=== PATIENT | female | born 1985 | race Caucasian/White ===

== ENCOUNTER 2024-10-03 16:57 | Observation (INO) ==
--- NOTE | 2024-10-03 17:41 | Emergency Department Note ---
History of Present Illness General Chief Complaint: Cardiac Assessment Stated Complaint: PALPITATIONS, HEADACHE, DIZZINESS, SHAKINESS Time Seen by Provider: 10/03/24 17:12 History of Present Illness Provider Complaint: + palpitations Onset (ago): month(s) (1) Duration: + Constant Severity: similar to previous episodes Maximum Pain Intensity: 8 Context: + occurred during rest Arrhythmia history: no atrial fibrillation, no on anti-coagulants, no pacemaker or no history of ablation Associated symptoms: + chest pain; no shortness of breath, no syncope, no near- syncope, no nausea, no vomiting or no cough Home Medications Medication Instructions Recorded Confirmed Type ascorbic acid (vitamin C) 1,000 mg 1,000 mg PO QAM 10/03/24 10/03/24 History tablet (Vitamin C) elderberry fruit 350 mg capsule 350 mg PO QAM 10/03/24 10/03/24 History Allergies Allergy/AdvReac Type Severity Reaction Status Date / Time acetaminophen Allergy Unknown RASH Verified 10/03/24 21:19 citalopram Allergy Unknown INSOMNIA Verified 10/03/24 21:19 hydrocodone Allergy Unknown RASH Verified 10/03/24 21:19 meloxicam Allergy Unknown LIP Verified 10/03/24 21:19 NUMBNESS Past Med/Surg History Problem List (Updated 10/03/24 @ 22:20 by Casey Vernon MD) Chest pain (Acute) Anxiety Chest pressure Medical History (Updated 10/03/24 @ 22:20 by Casey Vernon MD) No pertinent past medical history No pertinent family history Surgical History (Updated 10/03/24 @ 17:43 by Casey Vernon MD) No pertinent past surgical history Social History Smoking Status: Never smoker Preferred Language: Indonesian Feels Safe at Home: Yes Physical Exam 2 Vital Signs: Vital Signs - 24 hr 10/03/24 17:01 10/03/24 17:18 10/03/24 17:18 Temperature 37.1 C Temperature Source Temporal Artery Sc an Pulse Rate 129 H 106 H Pulse Rate [Apical ] 105 H Pulse Rhythm Pulse Rhythm [Apic al] Regular Pulse Strength [Ap ical] Normal Respiratory Rate 18 20 Respiratory Effort / Characteristics Non-Labored Sponta neous Respiratory Depth Normal Respiratory Patter n Regular Blood Pressure 139/90 Blood Pressure [Le ft Arm] 128/97 Blood Pressure Verito n 106 Blood Pressure Verito n [Left Arm] 107 Blood Pressure Pos ition [Left Arm] Pulse Oximetry 98 98 Oxygen Delivery Me thod Room Air Room Air Sepsis New/Unexpla ined Change in Men claudine Status No Sepsis Action Take n by Nursing No Action Required 10/03/24 17:18 10/03/24 17:30 10/03/24 17:36 Temperature Temperature Source Pulse Rate 104 H 92 H Pulse Rate [Apical ] Pulse Rhythm Regular Pulse Rhythm [Apic al] Pulse Strength [Ap ical] Respiratory Rate 20 20 Respiratory Effort / Characteristics Respiratory Depth Respiratory Patter n Blood Pressure 115/83 Blood Pressure [Le ft Arm] Blood Pressure Verito n 97 Blood Pressure Verito n [Left Arm] Blood Pressure Pos ition [Left Arm] Pulse Oximetry 99 99 Oxygen Delivery Me thod Room Air Room Air Sepsis New/Unexpla ined Change in Men claudine Status Sepsis Action Take n by Nursing 10/03/24 18:00 10/03/24 18:12 10/03/24 18:42 Temperature Temperature Source Pulse Rate 94 H 90 85 Pulse Rate [Apical ] Pulse Rhythm Pulse Rhythm [Apic al] Pulse Strength [Ap ical] Respiratory Rate 16 22 14 Respiratory Effort / Characteristics Respiratory Depth Respiratory Patter n Blood Pressure 121/67 Blood Pressure [Le ft Arm] Blood Pressure Verito n 85 Blood Pressure Verito n [Left Arm] Blood Pressure Pos ition [Left Arm] Pulse Oximetry 97 98 98 Oxygen Delivery Me thod Room Air Room Air Room Air Sepsis New/Unexpla ined Change in Men claudine Status Sepsis Action Take n by Nursing 10/03/24 19:21 10/03/24 19:24 10/03/24 19:27 Temperature Temperature Source Pulse Rate 96 H 102 H Pulse Rate [Apical ] Pulse Rhythm Pulse Rhythm [Apic al] Pulse Strength [Ap ical] Respiratory Rate 16 21 Respiratory Effort / Characteristics Respiratory Depth Respiratory Patter n Blood Pressure 113/72 Blood Pressure [Le ft Arm] Blood Pressure Verito n 83 Blood Pressure Verito n [Left Arm] Blood Pressure Pos ition [Left Arm] Pulse Oximetry 97 97 Oxygen Delivery Me thod Room Air Room Air Sepsis New/Unexpla ined Change in Men claudine Status Sepsis Action Take n by Nursing 10/03/24 19:33 10/03/24 19:42 10/03/24 19:51 Temperature Temperature Source Pulse Rate 107 H 103 H 97 H Pulse Rate [Apical ] Pulse Rhythm Pulse Rhythm [Apic al] Pulse Strength [Ap ical] Respiratory Rate 24 20 Respiratory Effort / Characteristics Respiratory Depth Respiratory Patter n Blood Pressure Blood Pressure [Le ft Arm] Blood Pressure Verito n Blood Pressure Verito n [Left Arm] Blood Pressure Pos ition [Left Arm] Pulse Oximetry 97 98 97 Oxygen Delivery Me thod Room Air Room Air Room Air Sepsis New/Unexpla ined Change in Men claudine Status Sepsis Action Take n by Nursing 10/03/24 20:00 10/03/24 20:00 10/03/24 20:29 Temperature Temperature Source Pulse Rate 99 H 98 H Pulse Rate [Apical ] 94 H Pulse Rhythm Pulse Rhythm [Apic al] Pulse Strength [Ap ical] Respiratory Rate 18 18 Respiratory Effort / Characteristics Non-Labored Sponta neous Respiratory Depth Normal Respiratory Patter n Regular Blood Pressure Blood Pressure [Le ft Arm] 118/81 Blood Pressure Verito n Blood Pressure Verito n [Left Arm] 93 Blood Pressure Pos ition [Left Arm] Pulse Oximetry 97 98 Oxygen Delivery Me thod Room Air Room Air Sepsis New/Unexpla ined Change in Men claudine Status Sepsis Action Take n by Nursing 10/03/24 21:14 10/03/24 21:21 Temperature Temperature Source Pulse Rate Pulse Rate [Apical ] 93 H 90 Pulse Rhythm Pulse Rhythm [Apic al] Pulse Strength [Ap ical] Respiratory Rate 22 16 Respiratory Effort / Characteristics Non-Labored Sponta neous Non-Labored Sponta neous Respiratory Depth Normal Normal Respiratory Patter n Regular Regular Blood Pressure Blood Pressure [Le ft Arm] 121/76 109/67 Blood Pressure Verito n Blood Pressure Verito n [Left Arm] 91 81 Blood Pressure Pos ition [Left Arm] Semi-fowlers Pulse Oximetry 97 95 Oxygen Delivery Me thod Room Air Room Air Sepsis New/Unexpla ined Change in Men claudine Status Sepsis Action Take n by Nursing Physical Exam: Physical Exam GENERAL: oriented to person, place, and time. appears well-developed and well- nourished. HENT: Exam performed. - Head: Normocephalic and atraumatic. EYES: Conjunctivae and EOM are normal. Right eye exhibits no discharge. Left eye exhibits no discharge. No scleral icterus. NECK: Normal range of motion. Neck supple. No JVD present. CV: Tachycardic rate, regular rhythm, normal heart sounds and intact distal pulses. There is no peripheral edema. Palpable radial pulses bue. PULM/CHEST: Effort normal and breath sounds normal. No respiratory distress. No stridor. no wheezes. no rales. ABD: The abdomen is soft. There is no tenderness. NEURO: Motor and sensation grossly intact. SKIN: Skin is warm and dry. He is not diaphoretic. PSYCH: normal mood and affect. Behavior is normal. Judgment and thought content normal. Course Course 171: The patient was evaluated in room B2. A complete history and physical exam was performed Cardiac monitoring: An order was placed for continuous cardiac monitoring. The monitor shows a rate of 100 with sinus rhythm interpreted by me 1915: Vital signs stable. Labs and imaging are unremarkable. Patient was told she could follow-up for regular scheduled appointment with cardiology next week or be admitted to the hospital for observation given her ongoing chest pain. Patient states she prefers to be admitted to the hospital. [facility] hospitalist team will be contacted. Administered Medications Potassium Chloride/Sodium Chloride (Normal Saline W/20 Meq Kcl) 20 meq in 1,000 mls @ 100 mls/hr IV .Q10H ONE Stop: 10/04/24 05:56 Last Admin: 10/03/24 20:32 Dose: 100 mls/hr Documented By: FOUZIA Discontinued Medications Ioversol (Optiray 320 125ml) 118 ml IV ONCE ONE Stop: 10/03/24 21:46 Last Admin: 10/03/24 21:45 Dose: 118 ml Documented By: SHEELA Metoprolol Tartrate (Metoprolol Tartrate 25 Mg Tab) 12.5 mg PO NOW STA Stop: 10/03/24 19:56 Last Admin: 10/03/24 20:32 Dose: 12.5 mg Documented By: FOUZIA Nitroglycerin (Nitroglycerin Sl 0.4 Mg/Tab Tab) 0.4 mg SL NOW STA Stop: 10/03/24 21:05 Last Admin: 10/03/24 21:15 Dose: 0.4 mg Documented By: FOUZIA Oxycodone HCl (Oxycodone Hcl Ir 5 Mg Tab (Immediate Release)) 5 mg PO NOW STA Stop: 10/03/24 21:23 Last Admin: 10/03/24 22:07 Dose: 5 mg Documented By: FOUZIA Potassium Chloride (Potassium Chloride Crtab 20 Meq Tabcr) 40 meq PO NOW STA Stop: 10/03/24 19:57 Last Admin: 10/03/24 20:30 Dose: 40 meq Documented By: [facility] Medical Decision Making Laboratory Data Attestation: I reviewed the patient's lab results. 10/03/24 17:28 10/03/24 17:28 Lab Results 10/03/24 10/03/24 10/03/24 Range/Units 17:28 17:38 19:33 WBC 8.28 (4.8-10.8) K/ul RBC 4.61 (4.20-5.40) M/uL Hgb 13.4 (12.0-16.0) g/dl Hct 40.2 (37.0-47.0) % MCV 87.2 (80.0-100.0) fL MCH 29.1 (25.0-34.0) pg MCHC 33.3 (32.0-36.0) g/dL RDW Std Deviation 41.0 (36.4-46.3) fL RDW Coeff of Melanie 13.1 (11.5-14.5) % Plt Count 235 (130-400) K/uL MPV 11.0 (9.4-12.4) fL Immature Gran % (Auto) 0.2 % Neut % (Auto) 60.7 % Lymph % (Auto) 29.1 % [place] % (Auto) 8.3 % Eos % (Auto) 1.3 % Baso % (Auto) 0.4 % Neut # (Auto) 5.02 (1.40-6.50) K/uL Lymph # (Auto) 2.41 (1.20-3.40) K/uL [place] # (Auto) 0.69 H (0.11-0.59) K/uL Eos # (Auto) 0.11 (0.00-0.50) K/uL Baso # (Auto) 0.03 (0.00-0.20) K/uL Immature Gran # (Auto) 0.02 (0.01-0.20) K/uL ESR 23 H (0-20) mm/hr PT 9.9 (9.0-12.0) Seconds INR 0.9 (0.9-1.1) APTT 24 (21-31) Seconds PTT Ratio 0.9 D-Dimer 320 (0-500) ug/L FEU Sodium 139 (136-145) mmol/L Potassium 3.7 (3.5-5.1) mmol/L Chloride 107 (98-107) mmol/L Carbon Dioxide 26 (21-32) mmol/L Anion Gap 6 (3-11) BUN 17 (6-23) mg/dl Creatinine 0.75 (0.6-1.2) mg/dl Est Cr Clr Drug Dosing 105.2 ml/min eGFR 103.79 BUN/Creatinine Ratio 22.7 H (10-20) Glucose 93 (70-99(Fasting)) mg/dl Calcium 9.1 (8.6-10.3) mg/dl Magnesium 2.1 (1.7-2.4) mg/dl Total Bilirubin 0.4 (0.2-1.0) mg/dl Direct Bilirubin 0.1 (0-0.2) mg/dl AST 15 (13-39) U/L ALT 18 (7-52) U/L Alkaline Phosphatase 54 (34-104) U/L Troponin I High Sens < 2.3 2.5 (0-14) pg/ml Total Protein 6.8 (6.0-8.3) gm/dl Albumin 4.3 (3.4-5.0) gm/dl Lipase 25 (11-82) U/L Lyme Disease Screen Negative (Negative) Imaging Data Attestation: I personally reviewed and interpreted this imaging study as follows: My Impression: Chest x-ray negative. Airway clear. No pneumothorax. No consolidation. No cardiomegaly or cephalization.. No free air under the diaphragm. No fractures of the skeletal structures. Radiologist's Impression: Chest X-Ray 10/03/24 17:13 EXAM: XR chest 1V portable CLINICAL HISTORY: Chest pain, nonspecific TECHNIQUE: An X-ray image of the chest is obtained in AP projection. COMPARISON: No prior studies are available for comparison. FINDINGS: Pulmonary Parenchyma: Lungs are clear bilaterally. No evidence of consolidation, collapse, or focal opacities. No pulmonary nodules are identified. No evidence of pleural effusion or pleural thickening. Heart and Mediastinum: Heart size and shape are normal. No mediastinal widening or masses. No hilar or mediastinal lymphadenopathy. Bony Thorax: Bony thorax appears intact without fractures or deformities. Small calcific foci area seen in the vicinity f the left supraspinatus tendon, likely calcific tendinitis. Soft Tissues: Soft tissues overlying the chest wall are unremarkable. IMPRESSION: No acute cardiopulmonary abnormalities are identified. Electronically signed by Cuco Long 10-03-2024 7:14 PM ECG Data Attestation: I personally reviewed and interpreted this ECG as follows: Rate (beats per minute): 108 Rhythm: sinus tachycardia Findings: no ST depression, no ST elevation or no prolonged QT [facility] Narrative 1712: The patient was evaluated in room B2. A complete history and physical exam was performed Cardiac monitoring: An order was placed for continuous cardiac monitoring. The monitor shows a rate of 100 with sinus rhythm interpreted by me 1915: Vital signs stable. Labs and imaging are unremarkable. Patient was told she could follow-up for regular scheduled appointment with cardiology next week or be admitted to the hospital for observation given her ongoing chest pain. Patient states she prefers to be admitted to the hospital. [facility] hospitalist team will be contacted. Impression & Plan Chest pain Discharge Plan Visit Data Chief Complaint: Cardiac Assessment Stated Complaint: PALPITATIONS, HEADACHE, DIZZINESS, SHAKINESS ED Provider: Casey Vernon Discharge Problem: Chest pain Patient Disposition: Being Evaluated by Hospitalist Forms Stand Alone Forms: My [facility] Prescriptions Prescriptions: No Action ascorbic acid (vitamin C) [Vitamin C] 1,000 mg Tablet 1,000 mg PO QAM elderberry fruit 350 mg Capsule 350 mg PO QAM Referrals Referrals: PCP,NO [Physician] - Discharge Problem: Chest pain Qualifiers: Chest pain type: unspecified Qualified Code(s): R07.9 - Chest pain, unspecified
[2024-10-03 17:45] LABS: Basophils # (auto) 0.03 K/uL (0.00-0.20); Basophils % (auto) 0.4 %; Eosinophils # (auto) 0.11 K/uL (0.00-0.50); Eosinophils % (auto) 1.3 %; Hematocrit (blood only) 40.2 % (37.0-47.0); Hemoglobin 13.4 g/dl (12.0-16.0); Immature Granulocytes # (auto) 0.02 K/uL (0.01-0.20); Immature Granulocytes % (auto) 0.2 %; Lymphocytes # (auto) 2.41 K/uL (1.20-3.40); Lymphocytes % (auto) 29.1 %; Mean Corpuscular Hemoglobin 29.1 pg (25.0-34.0); Mean Corpuscular Hgb Conc 33.3 g/dL (32.0-36.0); Mean Corpuscular Volume 87.2 fL (80.0-100.0); Monocytes # (auto) 0.69 K/uL (0.11-0.59); Monocytes % (auto) 8.3 %; Neutrophils # (auto) 5.02 K/uL (1.40-6.50); Neutrophils % (auto) 60.7 %; Platelet Count 235 K/uL (130-400); RDW Coefficient of Variation 13.1 % (11.5-14.5); Red Blood Count 4.61 M/uL (4.20-5.40); White Blood Count 8.28 K/ul (4.8-10.8)
[2024-10-03 18:03] LABS: Anion Gap 6 (3-11); BUN Creatinine Ratio 22.7 (10-20); Blood Urea Nitrogen 17 mg/dl (6-23); Calcium 9.1 mg/dl (8.6-10.3); Carbon Dioxide 26 mmol/L (21-32); Chloride 107 mmol/L (98-107); Creatinine Clr Calc Pharmacy 105.2 ml/min; Glucose 93 mg/dl (70-99(Fasting)); Lipase 25 U/L (11-82); Magnesium 2.1 mg/dl (1.7-2.4); Potassium 3.7 mmol/L (3.5-5.1); Sodium 139 mmol/L (136-145)
[2024-10-03 18:10] LABS: Troponin I High Sensitivity < 2.3 pg/ml (0-14)
[2024-10-03 18:28] LABS: D Dimer 320 ug/L FEU (0-500); INR 0.9 (0.9-1.1); Partial Thromboplastin Ratio 0.9; Partial Thromboplastin Time 24 Seconds (21-31); Prothrombin Time 9.9 Seconds (9.0-12.0)
--- NOTE | 2024-10-03 19:15 | XRay Report ---
EXAM: XR chest 1V portable CLINICAL HISTORY: Chest pain, nonspecific TECHNIQUE: An X-ray image of the chest is obtained in AP projection. COMPARISON: No prior studies are available for comparison. FINDINGS: Pulmonary Parenchyma: Lungs are clear bilaterally. No evidence of consolidation, collapse, or focal opacities. No pulmonary nodules are identified. No evidence of pleural effusion or pleural thickening. Heart and Mediastinum: Heart size and shape are normal. No mediastinal widening or masses. No hilar or mediastinal lymphadenopathy. Bony Thorax: Bony thorax appears intact without fractures or deformities. Small calcific foci area seen in the vicinity f the left supraspinatus tendon, likely calcific tendinitis. Soft Tissues: Soft tissues overlying the chest wall are unremarkable. IMPRESSION: No acute cardiopulmonary abnormalities are identified. Electronically signed by Cuco Long 10-03-2024 7:14 PM
--- NOTE | 2024-10-03 20:00 | History & Physical Report ---
Date of Service October 03, 2024 Assessment & Plan (1) Chest pressure: (2) Anxiety: Plan Please refer to Dr. Crane's note for further plan of care. History of Present Illness Chief Complaint: Chest pressure/shortness of breath Primary Care Provider: Mukul Wilkes PA-C The patient is a 38-year-old female with a past medical history of anxiety, recently taking Zepbound for weight loss which she stopped about a month and a half ago who presents to the ED on 09/29/2024 with complaints of worsening chest pressure and shortness of breath over the past month. Patient reports about 4 weeks ago developing midsternal chest pressure. The chest pain is not reproducible. She reports about 2 weeks ago getting blood work done again EKG done at the doctor's office which was normal. About 6 days after that, she still did not feel right, reported getting EKG done outpatient that showed PVCs. She had a Zio patch on for few days that was discontinued today 09/29/2024. She still did not receive the results. She has a follow-up appointment with cardiology in 1 week. Reports the shortness of breath is worsening and she is unable to have a full conversation or go up the steps without being short of breath. Denies any fever/chills. Denies any nausea/vomiting/diarrhea. Denies any abdominal pain. Denies any recent changes in her diet. Denies any recent travel. Denies any recent respiratory symptoms. On arrival to the ED, chest x-ray showed no acute changes On exam, patient had rare PVCs and was mildly tachycardic rates [id number] Labs are fairly unremarkable. Troponin negative. Lyme pending. The patient will be admitted for further workup for atypical chest pain. Allergies Allergy/AdvReac Type Severity Reaction Status Date / Time acetaminophen Allergy Unknown RASH Verified 10/03/24 21:19 citalopram Allergy Unknown INSOMNIA Verified 10/03/24 21:19 hydrocodone Allergy Unknown RASH Verified 10/03/24 21:19 meloxicam Allergy Unknown LIP Verified 10/03/24 21:19 NUMBNESS Home Medications Medication Instructions Recorded Confirmed Type ascorbic acid (vitamin C) 1,000 mg 1,000 mg PO QAM 10/03/24 10/03/24 History tablet (Vitamin C) elderberry fruit 350 mg capsule 350 mg PO QAM 10/03/24 10/03/24 History Past Med/Surg History Problem List (Updated 10/03/24 @ 22:20 by Casey Vernon MD) Chest pain (Acute) Anxiety Chest pressure Medical History (Updated 10/03/24 @ 22:20 by Casey Vernon MD) No pertinent past medical history No pertinent family history Surgical History (Updated 10/03/24 @ 17:43 by Casey Vernon MD) No pertinent past surgical history Social History Smoking Status: Never smoker Second Hand Exposure: No; Do You Dip or Chew Tobacco: No; Tobacco Cessation Education Requested by Patient: No Hx Alcohol Use: No Hx Substance Use: No Preferred Language: Japanese Communication Ability: Effective Helicopter Pilot Required: No Beliefs That Will Affect Care: None Current Living Situation: Significant Other Other Information That Helps Us Care for You: No Feels Safe at Home: Yes Safety Concerns: Feels Safe At This Time Assistive Devices: Contacts Review of Systems Review of Systems: All systems reviewed & are unremarkable except as noted in HPI & below Physical Exam Constitutional: WD/WN, vitals as above Eyes: PERRL, conjunctivae normal, anicteric sclerae ENMT: external ear and nose normal, oropharynx normal Neck: trachea midline, no thyromegaly Respiratory: normal respiratory effort, lungs clear to auscultation Cardiovascular: RRR, no murmur, no edema (Mildly tachycardic on exam) Gastrointestinal (Abdomen): normal bowel sounds, soft, nontender, no hepatosplenomegaly Musculoskeletal: no cyanosis or clubbing, extremities motor strength 5/5 Skin: no rashes, warm and dry Neurologic: PERRL, EOMI, accommodation nl, no face palsy, no dysarthria Psychiatric: A+Ox3, euthymic affect Lymphatic: no cervical or axillary lymphadenopathy Results & Data Results & Data Vital Signs (Past 12 Hours) Vital Signs Temp Pulse Pulse Resp BP BP Pulse Ox 10/03/24 18:42 85 14 98 10/03/24 18:12 90 22 98 10/03/24 18:00 94 H 16 121/67 97 10/03/24 17:36 92 H 20 99 10/03/24 17:30 115/83 10/03/24 17:18 104 H 20 99 10/03/24 17:18 105 H 20 128/97 98 10/03/24 17:18 106 H 10/03/24 17:01 37.1 C 129 H 18 139/90 98 O2 Del Method 10/03/24 18:42 Room Air 10/03/24 18:12 Room Air 10/03/24 18:00 Room Air 10/03/24 17:36 Room Air 10/03/24 17:30 10/03/24 17:18 Room Air 10/03/24 17:18 Room Air 10/03/24 17:18 10/03/24 17:01 Room Air Diagnostic Findings Laboratory Results WBC 8.28 K/ul (4.8-10.8) 10/03/24 17:28 RBC 4.61 M/uL (4.20-5.40) 10/03/24 17:28 Hgb 13.4 g/dl (12.0-16.0) 10/03/24 17:28 Hct 40.2 % (37.0-47.0) 10/03/24 17:28 MCV 87.2 fL (80.0-100.0) 10/03/24 17:28 MCH 29.1 pg (25.0-34.0) 10/03/24 17:28 MCHC 33.3 g/dL (32.0-36.0) 10/03/24 17:28 RDW Std Deviation 41.0 fL (36.4-46.3) 10/03/24 17:28 RDW Coeff of Melanie 13.1 % (11.5-14.5) 10/03/24 17:28 Plt Count 235 K/uL (130-400) 10/03/24 17:28 MPV 11.0 fL (9.4-12.4) 10/03/24 17:28 Immature Gran % (Auto) 0.2 % 10/03/24 17:28 Neut % (Auto) 60.7 % 10/03/24 17:28 Lymph % (Auto) 29.1 % 10/03/24 17:28 [place] % (Auto) 8.3 % 10/03/24 17:28 Eos % (Auto) 1.3 % 10/03/24 17:28 Baso % (Auto) 0.4 % 10/03/24 17:28 Neut # (Auto) 5.02 K/uL (1.40-6.50) 10/03/24 17:28 Lymph # (Auto) 2.41 K/uL (1.20-3.40) 10/03/24 17:28 [place] # (Auto) 0.69 K/uL (0.11-0.59) H 10/03/24 17:28 Eos # (Auto) 0.11 K/uL (0.00-0.50) 10/03/24 17:28 Baso # (Auto) 0.03 K/uL (0.00-0.20) 10/03/24 17:28 Immature Gran # (Auto) 0.02 K/uL (0.01-0.20) 10/03/24 17:28 ESR 23 mm/hr (0-20) H 10/03/24 17:28 PT 9.9 Seconds (9.0-12.0) 10/03/24 17:28 INR 0.9 (0.9-1.1) 10/03/24 17:28 APTT 24 Seconds (21-31) 10/03/24 17:28 PTT Ratio 0.9 10/03/24 17:28 D-Dimer 320 ug/L FEU (0-500) 10/03/24 17:28 Sodium 139 mmol/L (136-145) 10/03/24 17:28 Potassium 3.7 mmol/L (3.5-5.1) 10/03/24 17:28 Chloride 107 mmol/L (98-107) 10/03/24 17:28 Carbon Dioxide 26 mmol/L (21-32) 10/03/24 17:28 Anion Gap 6 (3-11) 10/03/24 17:28 BUN 17 mg/dl (6-23) 10/03/24 17:28 Creatinine 0.75 mg/dl (0.6-1.2) 10/03/24 17:28 Est Cr Clr Drug Dosing 105.2 ml/min 10/03/24 17:28 eGFR 103.79 10/03/24 17:28 BUN/Creatinine Ratio 22.7 (10-20) H 10/03/24 17:28 Glucose 93 mg/dl (70-99(Fasting)) 10/03/24 17:28 Calcium 9.1 mg/dl (8.6-10.3) 10/03/24 17:28 Magnesium 2.1 mg/dl (1.7-2.4) 10/03/24 17:28 Troponin I High Sens < 2.3 pg/ml (0-14) 10/03/24 17:28 Lipase 25 U/L (11-82) 10/03/24 17:28 Impressions Chest X-Ray 10/03/24 17:13 EXAM: XR chest 1V portable CLINICAL HISTORY: Chest pain, nonspecific TECHNIQUE: An X-ray image of the chest is obtained in AP projection. COMPARISON: No prior studies are available for comparison. FINDINGS: Pulmonary Parenchyma: Lungs are clear bilaterally. No evidence of consolidation, collapse, or focal opacities. No pulmonary nodules are identified. No evidence of pleural effusion or pleural thickening. Heart and Mediastinum: Heart size and shape are normal. No mediastinal widening or masses. No hilar or mediastinal lymphadenopathy. Bony Thorax: Bony thorax appears intact without fractures or deformities. Small calcific foci area seen in the vicinity f the left supraspinatus tendon, likely calcific tendinitis. Soft Tissues: Soft tissues overlying the chest wall are unremarkable. IMPRESSION: No acute cardiopulmonary abnormalities are identified. Electronically signed by Cuco Long 10-03-2024 7:14 PM Supervising Physician Co-Signing Physician Notes IM ATTENDING : Patient seen and examined. History obtained from patient and records. Concur with salient points upon review of preceding documentation by JAMSHID Pandya. In addition, patient complaining of intermittent headache symptoms and chest pain radiating to shoulder blades. CT angio chest 1. No evidence of acute abnormality. 2. Cholelithiasis. 3. 13 x 17 mm lobular density in the right outer breast, series 13 image 58. Similar 5 x 10 mm density also in the right breast. Recommend correlation with priors if available and ultrasound/mammogram to further characterize. CT head: No evidence of acute intracranial abnormality. I take responsibility for plan of care below. FINAL ASSESSMENT AND PLAN as follows : Chest pain, palpitations, headache symptoms Possible symptomatic PVCs Possible sleep disordered breathing contributory given morbid obesity Anxiety/mood disorder, stable off maintenance medications Incidental finding of lobular densities on CT Morbid obesity OBS Admit to PCU Initiate beta-kristine to suppress symptomatic PVCs TTE, Cardiology consult re: chest pain, PVCs MRI brain re: headache of month duration Outpatient sleep study Outpatient breast imaging for lobular densities on CT (ultrasound versus mammogram) DVT prophylaxis. SCDs Full code I spent a total of 30 minutes coordinating, documenting, and providing care for this patientexcludingtime spent by another provider/QHP. Text document was generated using SignNow voice recognition software. It may contain grammatical or spelling errors. Kindly contact undersigned for clarification of any documentation item in question.
[2024-10-03 20:15] LABS: Alanine Aminotransferase 18 U/L (7-52); Albumin Level 4.3 gm/dl (3.4-5.0); Alkaline Phosphatase 54 U/L (34-104); Aspartate Aminotransferase 15 U/L (13-39); Bilirubin Direct 0.1 mg/dl (0-0.2); Bilirubin,Total 0.4 mg/dl (0.2-1.0); Total Protein 6.8 gm/dl (6.0-8.3)
[2024-10-03 20:22] LABS: Troponin I High Sensitivity 2.5 pg/ml (0-14)
[2024-10-03] MEDS: POTASSIUM CHLORIDE CRTAB 20 MEQ TABCR PO STA (20:30)
[2024-10-03] MEDS: METOPROLOL TARTRATE 25 MG TAB PO STA (20:32)
[2024-10-03] MEDS: NSS + 20MEQ KCL 20 MEQ/1,000 ML BAG IV ONE (20:32)
[2024-10-03] MEDS ORDERED: MoRPHine SULFATE 4 MG/ML 1 ML CARP\\VIAL IV PRN (21:11)
[2024-10-03] MEDS ORDERED: LORazepam 0.5 MG TAB PO PRN (21:11)
[2024-10-03] MEDS ORDERED: ACETAMINOPHEN 325 MG TAB PO PRN (21:11)
[2024-10-03] MEDS ORDERED: PROMETHAZINE 12.5 MG/50.5 ML BAG IV PRN (21:11)
[2024-10-03] MEDS ORDERED: oxyCODONE HCL IR 5 MG TAB (IMMEDIATE RELEASE) PO PRN (21:11)
[2024-10-03] MEDS: NITROGLYCERIN SL 0.4 MG/TAB TAB SL STA (21:15)
[2024-10-03] MEDS: OPTIRAY 320 125ml IV ONE (21:45)
[2024-10-03] MEDS: oxyCODONE HCL IR 5 MG TAB (IMMEDIATE RELEASE) PO STA (22:07)
[2024-10-03 23:18] LABS: C Reactive Protein < 0.50 mg/dl (0-0.5)
--- NOTE | 2024-10-04 00:22 | CT Scan Report ---
Exam(s): CT HEAD Without Contrast EXAM: CT Head Without Intravenous Contrast CLINICAL HISTORY: Reason for exam: [place]ledo. TECHNIQUE: Axial computed tomography images of the head/brain without intravenous contrast. Automated exposure control was utilized for the study. A dose lowering technique was utilized adhering to the principles of ALARA. COMPARISON: No relevant prior studies available. FINDINGS: Brain: Unremarkable. No hemorrhage. No significant white matter disease. No edema. Ventricles: Unremarkable. No ventriculomegaly. Bones/joints: Unremarkable. No acute fracture. Soft tissues: Unremarkable. Sinuses: Unremarkable as visualized. No acute sinusitis. Mastoid air cells: Unremarkable as visualized. No mastoid effusion. IMPRESSION: No evidence of acute intracranial abnormality. Electronically signed by: Mariela Solares M.D. 10/04/24 00:20 AM
--- NOTE | 2024-10-04 00:34 | CT Scan Report ---
Exam(s): CTA CHEST W/WO Contrast IV Amt: 118 cc opti 320 EXAM: CT Angiography Chest Without and With Intravenous Contrast CLINICAL HISTORY: Reason for exam: cp, back pain. TECHNIQUE: Axial computed tomographic angiography images of the chest without and with intravenous contrast. Automated exposure control was utilized for the study. A dose lowering technique was utilized adhering to the principles of ALARA. MIP reconstructed images were created and reviewed. CONTRAST: Patient received 118 cc opti 320 of IV contrast COMPARISON: No relevant prior studies available. FINDINGS: Pulmonary arteries: Unremarkable. No pulmonary embolism. Aorta: No acute findings. No thoracic aortic aneurysm. Lungs: Unremarkable. No mass. No consolidation. Pleural space: Unremarkable. No significant effusion. No pneumothorax. Heart: Unremarkable. No cardiomegaly. No significant pericardial effusion. No evidence of RV dysfunction. Bones/joints: No acute fracture. No dislocation. Soft tissues: 13 x 17 mm lobular density in the right outer breast, series 13 image 58. Similar 5 x 10 mm density also in the right breast. Lymph nodes: Unremarkable. No enlarged lymph nodes. Gallbladder and bile ducts: Multiple gallbladder stones. IMPRESSION: 1. No evidence of acute abnormality. 2. Cholelithiasis. 3. 13 x 17 mm lobular density in the right outer breast, series 13 image 58. Similar 5 x 10 mm density also in the right breast. Recommend correlation with priors if available and ultrasound/mammogram to further characterize. Electronically signed by: Mariela Solares M.D. 10/04/24 00:33 AM
[2024-10-04 06:23] LABS: Basophils # (auto) 0.03 K/uL (0.00-0.20); Basophils % (auto) 0.5 %; Eosinophils # (auto) 0.17 K/uL (0.00-0.50); Eosinophils % (auto) 2.7 %; Hemoglobin 12.3 g/dl (12.0-16.0); Immature Granulocytes # (auto) 0.01 K/uL (0.01-0.20); Immature Granulocytes % (auto) 0.2 %; Lymphocytes # (auto) 2.54 K/uL (1.20-3.40); Mean Corpuscular Hemoglobin 29.3 pg (25.0-34.0); Mean Corpuscular Hgb Conc 33.2 g/dL (32.0-36.0); Mean Corpuscular Volume 88.1 fL (80.0-100.0); Mean Platelet Volume 11.6 fL (9.4-12.4); Monocytes # (auto) 0.65 K/uL (0.11-0.59); Monocytes % (auto) 10.5 %; Neutrophils % (auto) 45.1 %; Platelet Count 205 K/uL (130-400); RDW Standard Deviation 41.8 fL (36.4-46.3)
[2024-10-04 06:37] LABS: BUN Creatinine Ratio 22.5 (10-20); Calcium 8.5 mg/dl (8.6-10.3); Creatinine Clr Calc Pharmacy 110.2 ml/min; Potassium 4.2 mmol/L (3.5-5.1)
--- OUTSIDE RECORDS SUMMARY | 2024-10-04 07:28 | External Medical Summary | Summary of Care ---
Author Name Unknown Organization [facility] Address [address] [place] [address] Phone [phone] Care Team Providers Care Shop Supervisor Name Role Phone Garcia, Krystle Idalmis Primary Care Provider [phone] Reason for Referral * Precert (Diagnostic Medical) (Within 10 days (routine)) - Authorized Specialty Diagnoses / Procedures Referred By Contac t Referred To Contact Cardiac Studies Diagnoses Palpitations Procedures ECHO, COMPLETE (2D), TRANS-THORACIC Zackary rAroyo MD [address] [place] [address] Phone: tel: fax: Referral ID Status Reason Start Date Expiration Date V isits Requested Visits Authorized [id number] Authorized Precert 09/29/2024 999 999 Reason for Visit * Reason Comments Acute Rhiannon Andres is a 38 year old female who presents today for evaluation of heart palpitations and tachycardia. Her symptoms started 1+ month ago and for the past 3 weeks her symptoms are progressing. She denies having chest discomfort. She will intermittently find herself trying to catch her breath. She denies any change in medication,diet,caffeine,stress or sleep. Encounter Details Date Type Department Care Team ([facility] st Contact Info) Description 09/29/2024 10:20 AM EDT Office Visit [facility] [address] [place] [address] [place] [address] [place] [id number] Palpitations* Allergies Active Allergy Reactions Criticality Noted Date Comments Meloxicam Edema face/lips/tongue High 10/20/2013 Hydrocodone-Acetaminophen Rash 10/20/2013 documented as of this encounter (statuses as of 09/29/2024) Medications Vitamin C 250 MG Vaginal Tablet Administer into the vagina. Active Digestive Health Probiotic Oral Capsule Take by mouth. Activ e Elderberry 500 MG Oral Capsule Take by mouth. Active Cyclobenzaprine HCl 10 MG Oral Tablet (Flexeril)Indica tions:Acute pain of right shoulder Take 1 Tablet by mouth at bedtime as needed for Muscle spasms. 30 Tablet 5 Active predniSONE 10 MG Oral Tablet (Deltasone)Indic ations:Acute pain of right shoulder Take 5 tabs for 2 days, 4 tabs for 2 days, 3 tabs for 2 days, 2 tabs for 2 days 1 tab for 2 days 30 Tablet 5 025 Discontin ued(End of Procedure ) Zepbound 5 MG/0.5ML Subcutaneous Solution Auto-injector [facility] Inject 5 mg (1 pen) under the skin weekly 2 mL 5 025 Discontin ued(End of Procedure ) documented as of this encounter (statuses as of 09/29/2024) Active Problems No known active problems documented as of this encounter (statuses as of 09/29/2024) Resolved Problems Problem Noted Date Diagnosed Date Resolved Date BMI 40.0-44.9, adult 12/25/2020 025 Overview: Per Obesity protocol 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 05/08/2020 12/05/2022 CHRIS (generalized anxiety disorder) 05/08/2020 12/05/2022 Acute anterior epistaxis 01/28/2016 S/P nasal septoplasty 01/28/20162019 S/P functional endoscopic sinus surgery 01/28/2016 05/08/2020 Deviated septum 12/12/2015 05/08/2020 Nasal turbinate hypertrophy 01/23/2015 05/08/2020 Rhinosinusitis 01/23/2015 09/29/2024 documented as of this encounter (statuses as of 09/29/2024) Immunizations Name Administration Dates Next Due Seasonal Influenza Virus Vac cine, Unspecified Formulation 04/21/2019,05/04/2018 Seasonal Influenza, Trivalent, (IIV3), PF, (Fluz one) 07/12/2024 TDAP (age 10 and older)(Boostrix) 06/16/2019 documented as of this encounter Social History Tobacco Use Types Packs/Day Years Used Date Smoking Tobacco: Never Smokeless Tobacco: Never Alcohol Use Standard Drinks/Week Comments No 0 (1 standard drink = 0.6 oz pur e alcohol) PHQ-2 Answer Date Recorded PHQ Adult Total Score 0 06/21/2024 Hunger Vital Sign Answer Date Recorded Within the past 12 months, y ou worried that your food would run out before you got the money to buy more. Never true 06/21/20 24 Within the past 12 months, t he food you bought just didn't last and you didn't have money to get more. Never true 06/21/2024 Childcare Answer Date Recorded Do you feel overwhelmed with taking care of a child, family member or friend? No 06/21/2024 Does your family need help f inding childcare? (Household - for ages 0-17 years) Not on file 06/21/2024 Clothing Answer Date Recorded Have you been unable to get clothing when it was really needed? No 06/21/2024 Is your family able to get c lothes or diapers when needed? (Household - for ages 0-17 years) Not on file 06/21/2024 Personal Safety Answer Date Recorded Do you feel unsafe or have concerns for your saf ety? No 06/21/2024 Do you have concerns for you r family's safety? (Household - for ages 0-17 years) Not on file 06/21/2024 Utilities Answer Date Recorded Do you have trouble paying y our heating, water, or electric bill? No 06/21/2024 Is your family able to pay t he heat, water, or electric bill? (Household - for ages 0-17 years) Not on file 06/21/2024 Does your family have access to good internet? (Household - for ages 0-17 years) Not on file 06/21/2024 Employment Status Answer Date Recorded Are you unemployed or without regular income? No 06/21/2024 Does the household have a re gular source of income? (Household - for ages 0-17 years) Not on file 06/21/2024 Social Connections Answer Date Recorded How often do you feel lonely or isolated from th ose around you? Rarely 06/21/2024 Financial Resource Strain Answer Date R ecorded Do you have any trouble payi ng for your medications, or do you think you might in the future? No 06/21/2024 Does your family have troubl e paying for medicine? (Household - for ages 0-17 years) Not on file 06/21/2024 Transportation Needs Answer Date Record ed Do you have trouble getting a ride to medical visits or work? (Adult - for ages 18 years and over) Not on file 06/21/2024 Does your family have a hard time getting a ride to doctors visits? (Household - for ages 0-17 years) Not on file 06/21/2024 Has lack of transportation k ept you from medical appointments, meetings, work, or from getting things needed for daily living? Check all that apply. No 06/21/2024 Do you (or your family) have trouble finding or paying for a ride (transportation)? (Household - for ages 0-17 years) Not on file 06/21/2024 Housing Stability Answer Date Recorded Do you currently live in a s helter or have no steady place to sleep at night? No 06/21/2024 Do you think you are at risk of becoming homeless? (Adult - for ages 18 years and over) Not on file 06/21/2024 Does your family worry about paying for your home or becoming homeless? (Household - for ages 0-17 years) Not on file 1 08/22/2023 Are you homeless or worried that you might be in the future? No 06/21/2024 Are you (or your family) carlito eless or worried that you might be in the future? (Household - for ages 0-17 years) Not on file 12 /04/2024 Food Insecurity Answer Date Recorded Do you need food for this week? No 06/21/2024 Are you able to get enough f ood for your family? (Household - for ages 0-17 years) Not on file 06/21/2024 Does your family need food t his week? (Household - for ages 0-17 years) Not on file 06/21/2024 Do you always have enough fo od for your family? (Household - for ages 0-17 years) Not on file 06/21/2024 Food Insecurity Answer Date Recorded Within the past 12 months, y ou worried that your food would run out before you got the money to buy more. Never true 06/21/20 24 Within the past 12 months, t he food you bought just didn't last and you didn't have money to get more. Never true 06/21/2024 Do you need food for this week? No 06/21/2024 Comments No Sex and Gender Information Value Date Recorded Sex Assigned at Female 06/21/2024 11:08 AM EST Legal Sex Female 5:39 AM EST Gender Identity Female 06/21/2024 11:08 AM EST Sexual Orientation Straight 06/21/2024 11 :08 AM EST documented as of this encounter Last Filed Vital Signs Vital Sign Reading Time Taken Comments Blood Pressure 108/68 09/29/2024 10:16 AM EDT Pulse 97 09/29/2024 10:16 AM EDT Temperature 36.8 C (98.3 F) 09/29/2024 10:08 AM E DT Respiratory Rate 20 09/29/2024 10:08 AM EDT Oxygen Saturation 99% 09/29/2024 10:08 AM EDT Inhaled Oxygen Concentration - - Weight 95.3 kg (210 lb) 09/29/2024 10:08 AM EDT Height 153.7 cm (5' 0.5") 09/29/2024 10:08 AM ED T Body Mass Index 40.34 09/29/2024 10:08 AM EDT documented in this encounter Progress Notes * Nadya Khoury LPN - 09/29/2024 11:13 AM EDT 09/29/24 10:50 AM Serial Number: [id number] Nadya Khoury LPN Zio patch applied in clinic, as per provider orders. * Zackary Arroyo MD - 09/29/2024 10:17 AM EDT Subjective Rhiannon Andres is a 38 year old female. Chief Complaint Patient presents with Acute Rhiannon Andres is a 38 year old female who presents today for evaluation of heart palpitations and tachycardia. Her symptoms started 1+ month ago and for the past 3 weeks her symptoms are progressing. She denies having chest discomfort. She will intermittently find herself trying to catch her breath. She denies any change in medication,diet,caffeine,stress or sleep. HPI: This is a 38 year old female who presents for an acute visit. She reports palpitations for the past three to four weeks that have been worsening. She is tired and fatigued as a result. She feels like they cause mild dyspnea, and any activity makes the palpitations worse. She gets a MARIE, clammy, and shaky with any sort of exertion. She denies any CP but does endorse lightheadedness and dizziness. She has some stress with a new job in the past few weeks, but she doesn't feel this is anxiety. She denies any new medication, OTC, supplements. She denies any fevers/chills, recent sicknesses, or urinary symptoms. She denies any blurry vision or new neurologic symptoms. She denies any family history of abnormal heart rhythms or early heart disease. She doesn't smoke, vape, or chew. She does not drink alcohol or use drugs/MJ. She denies any dietary changes inthe past month. She drinks one coffee in the morning and a coke zero in the afternoon. She drinks one Yeti bottle of water and one glass of sparkling water per night. PMH: Current Outpatient Medications Medication Sig Dispense Refill Vitamin C 250 MG Vaginal Tablet Administer into the vagina. Digestive Health Probiotic Oral Capsule Take by mouth. Elderberry 500 MG Oral Capsule Take by mouth. Cyclobenzaprine HCl 10 MG Oral Tablet (Flexeril) Take 1 Tablet by mouth at bedtime as needed for Muscle spasms. 30 Tablet 0 No current facility-administered medications for this visit. Patient Active Problem List Diagnosis (none) - all problems resolved or deleted Past Medical History: Diagnosis Date Anxiety Depression Deviated septum 12/12/2015 CHRIS (generalized anxiety disorder) 05/08/2020 Mild episode of recurrent major depressive disorder (HCC) 05/08/2020 Nasal turbinate hypertrophy 01/23/2015 S/P functional endoscopic sinus surgery 01/28/2016 S/P nasal septoplasty 01/28/2016 Past Surgical History: Procedure Laterality Date CARPAL TUNNEL SURGERY Carpal Tunnel repair NASAL ENDOSCOPY/EXPLOR MAXIL SINUS Bilateral 01/15/2016 NASAL SINUS ENDOSCOPY MAXILLARY ANTROSTOMY performed by Dyllan Benton MD at OR [facility] PARTIAL HYSTERECTOMY 09/2015 R ovary remains REMOVAL OF TURBINATE BONES Bilateral 01/15/2016 SUBMUCOUS RESECTION INFERIOR TURBINATE performed by Dyllan Benton MD at OR [facility] REPAIR OF NASAL SEPTUM N/A 01/15/2016 SEPTOPLASTY performed by Dyllan Benton MD at OR [facility] SHOULDER ARTHROSCOPY SURGERY 11/23 and 04/25 Social History Socioeconomic History Marital status: Single Spouse name: Not on file Number of children: Not on file Years of education: Not on file Highest education level: Not on file Occupational History Not on file Tobacco Use Smoking status: Never Smokeless tobacco: Never Vaping Use Vaping status: Never Used Substance and Sexual Activity Alcohol use: No Drug use: Never Sexual activity: Yes Partners: Male Other Topics Concern Not on file Social History Narrative Not on file Social Needs Financial Resource Strain: Low Risk (06/21/2024) Financial Resource Strain Do you have any trouble paying for your medications, or do you think you might in the future? (Adult - for ages 18 years and over): No Does your family have trouble paying for medicine? (Household - for ages 0-17 years): Not on file Food Insecurity: No Food Insecurity (06/21/2024) Food Insecurity Worried About Running Out of Food in the Last Year: Never true Ran Out of Food in the Last Year: Never true Do you need food for this week? (Adult - for ages 18 years and over): No Transportation Needs: No Transportation Needs (06/21/2024) Transportation Needs Do you have trouble getting a ride to medical visits or work? (Adult - for ages 18 years and over):Not on file Does your family have a hard time getting a ride to doctors visits? (Household - for ages 0-17 years): Not on file Has lack of transportation kept you from medical appointments, meetings, work, or from getting things needed for daily living? Check all that apply. (Adult - for ages 18 years and over): No Do you (or your family) have trouble finding or paying for a ride (transportation)? (Household - for ages 0-17 years): Not on file Social Connections: Socially Integrated (06/21/2024) Social Connections How often do you feel lonely or isolated from those around you? (Adult - for ages 18 years and over): Rarely Housing Stability: Low Risk (06/21/2024) Housing Stability Do you currently live in a long-term or have no steady place to sleep at night? (Adult - for ages 18 years and over): No Do you think you are at risk of becoming homeless? (Adult - for ages 18 years and over): Not on file Does your family worry about paying for your home or becoming homeless? (Household - for ages 0-17 years): Not on file Are you homeless or worried that you might be in the future? (Adult - for ages 18 years and over): No Are you (or your family) homeless or worried that you might be in the future? (Household - for ages0-17 years): Not on file Family History Problem Relation Name Age of Onset Cancer Grandmother (Maternal) skin CA Diabetes Grandmother (Maternal) Ear Problems Grandmother (Maternal) Heart Disorder Grandfather (Maternal) Allergies Daughter lactose intolerant, dust mites Asthma Daughter Gastro-intestinal disorder Daughter Lung Disorder Daughter Review of patient's allergies indicates: Allergen Reactions Meloxicam Edema face/lips/tongue Vicodin [Hydrocodone-Acetaminophen] Rash Review of Systems All other systems reviewed and are negative. Objective BP 108/68 (BP Site: Left Arm, BP Position: Standing, BP Cuff Size: Regular) | Pulse 97 | Temp 98.3 F (36.8 C) (Tympanic) | Resp 20 | Ht 5' 0.5" (1.537 m) | Wt 210 lb (95.3 kg) | SpO2 99% | BMI 40.34 kg/m | BSA 2.02 m Orthostatic VS: Lying- 122/76, 80; Sitting- 118/74, 95; Standing- 108/68, 97 Physical Exam Vitals and nursing note reviewed. Constitutional: General: She is not in acute distress. Appearance: Normal appearance. She is not ill-appearing. HENT: Head: Normocephalic and atraumatic. Right Ear: Tympanic membrane, ear canal and external ear normal. Left Ear: Tympanic membrane, ear canal and external ear normal. Nose: Nose normal. Mouth/Throat: Mouth: Mucous membranes are moist. Pharynx: Oropharynx is clear. No oropharyngeal exudate or posterior oropharyngeal erythema. Eyes: Extraocular Movements: Extraocular movements intact. Conjunctiva/sclera: Conjunctivae normal. Pupils: Pupils are equal, round, and reactive to light. Neck: Thyroid: No thyroid mass, thyromegaly or thyroid tenderness. Vascular: Normal carotid pulses. No carotid bruit, hepatojugular reflux or JVD. Cardiovascular: Rate and Rhythm: Normal rate and regular rhythm. No extrasystoles are present. Chest Wall: PMI is not displaced. No thrill. Pulses: Normal pulses. No decreased pulses. Heart sounds: Normal heart sounds, S1 normal and S2 normal. Heart sounds not distant. No murmur heard. No friction rub. No gallop. No S3 or S4 sounds. Comments: EKG shows PVCs with ventricular trigeminy Pulmonary: Effort: Pulmonary effort is normal. No respiratory distress. Breath sounds: Normal breath sounds. No stridor. No wheezing, rhonchi or rales. Abdominal: General: Bowel sounds are normal. There is no distension. Palpations: Abdomen is soft. There is no mass. Tenderness: There is no abdominal tenderness. There is no guarding or rebound. Musculoskeletal: General: No swelling. Cervical back: Neck supple. Right lower leg: No edema. Left lower leg: No edema. Lymphadenopathy: Cervical: No cervical adenopathy. Skin: General: Skin is warm and dry. Findings: No rash. Neurological: General: No focal deficit present. Mental Status: She is alert and oriented to person, place, and time. Mental status is at baseline. Psychiatric: Mood and Affect: Mood normal. Behavior: Behavior normal. Thought Content: Thought content normal. Judgment: Judgment normal. ASSESSMENT/PLAN: ICD-10-CM 1. Palpitations R00.2 Plan CBC with WBC Differential and Anemia Reflex Workup Albumin / Creatinine Ratio, Urine Hemoglobin A1C Comprehensive Metabolic Panel TSH with Free T4 if indicated 25-Hydroxy Vitamin D Magnesium ECHO, COMPLETE (2D), TRANS-THORACIC EKG External EKG 2 to 7 days 1. Palpitations: Her EKG shows PVCs with ventricular trigeminy, which is new since her EKG last week. It is possible she is slipping into this rhythm when she exerts herself, which is causing symptoms. As such, we will check labs, an echocardiogram, and a Zio patch for three days. Based on her PVC burden, she understands she may need to see Cardiology. Her orthostatics were mildly positive, and Iencouraged her to drink more water, as I do not think she is drinking enough. We also discussed that if her symptoms significantly worsen or she develops chest pain/shortness of breath, she should goto the Emergency Room, and she voiced understanding. Follow Up: Return if symptoms worsen or fail to improve. Zackary Arroyo MD All, some, or none of the text in this note may have been generated using an ambient documentation service, depending on the visit type or situation. If the ambient documentation service was used, I discussed the use of a device to record and summarize our discussion today. All persons present during the encounter consented to its use. documented in this encounter Nursing Notes * Katy Benjamin LPN - 09/29/2024 10:08 AM EDT Chief Complaint Patient presents with Acute Rhiannongiorgio Andres is a 38 year old female who presents today for evaluation of heart palpitations and tachycardia. Her symptoms started 1+ month ago and for the past 3 weeks her symptoms are progressing. She denies having chest discomfort. She will intermittently find herself trying to catch her breath. She denies any change in medication,diet,caffeine,stress or sleep. documented in this encounter Plan of Treatment Upcoming Encounters Date Type Department Care Team (Late st Contact Info) Description 10/18/2024 7:15 AM EDT Cardiac Studies Cardiac Studies, [address] [place] [address] 06/23/2025 4:40 PM EST Office Visit [facility] [place] [address] [place] [address] Madi Pugh PA-C [address] [place] [address] Pending Results Name Type Priority Associated Diagnoses Date /Time CBC WITH WBC DIFFERENTIAL AND ANEMIA REFLEX WORKUP Lab Routine Palpitations 09/29/2024 11:05 AM EDT ALBUMIN / CREATININE RATIO, URINE Lab Routine Palpitations 09/29/2024 11:05 AM EDT HEMOGLOBIN A1C Lab Routine Palpitations 09/29/2024 11:05 AM EDT COMPREHENSIVE METABOLIC PANEL Lab Routine Palpitations 09/29/2024 11:05 AM EDT TSH WITH FREE T4 IF INDICATED Lab Routine Palpitations 09/29/2024 11:05 AM EDT 25-HYDROXY VITAMIN D Lab Routine Palpitations 09/29/2024 11:05 AM EDT MAGNESIUM Lab Routine Palpitations 09/29/2024 11:05 AM EDT Scheduled Orders Name Type Priority Associated Diagnoses Orde r Schedule CBC WITH WBC DIFFERENTIAL AND ANEMIA REFLEX WORKUP Lab Routine Palpitations Expected: 09/29/2024 (Approximate), Expires: 09/29/2025 ALBUMIN / CREATININE RATIO, URINE Lab Routine Palpitations Expected: 09/29/2024 (Approximate), Expires: 09/29/2025 HEMOGLOBIN A1C Lab Routine Palpitations Expected: 09/29/2024 (Approximate), Expires: 09/29/2025 COMPREHENSIVE METABOLIC PANEL Lab Routine Palpitations Expected: 09/29/2024 (Approximate), Expires: 09/29/2025 TSH WITH FREE T4 IF INDICATED Lab Routine Palpitations Expected: 09/29/2024 (Approximate), Expires: 09/29/2025 25-HYDROXY VITAMIN D Lab Routine Palpitations Expected: 09/29/2024 (Approximate), Expires: 09/29/2025 EXTERNAL EKG 2 TO 7 DAYS Holter Routine Palpitations Expected: 09/30/2024 (Approximate), Expires: 09/29/2025 ECHO, COMPLETE (2D), TRANS-THORACIC Echocardiology Routine Palpitations Expected: 09/29/2024 (Approximate), Expires: 09/29/2025 MAGNESIUM Lab Routine Palpitations Expected: 09/29/2024 (Approximate), Expires: 09/29/2025 Health Maintenance Due Date Last Done Comments HIV Screening 12/23/1999 Hepatitis C Screening 2002 Hepatitis B Vaccine (1 of 3 - 19+ 3-dose series) 12/23/2003 COVID-19 Vaccine ( - season) 2024 Depression Screening 06/21/2025 06/21/2024 Diabetes Screening 06/21/2027 06/21/2024, 1 08/22/2023, 04/09/2022, Additional history exists DTap/Tdap Vaccines (2 - Td or Tdap) 06/16/2029 06/16/2019 Pap Smear Discontinued 10/20/2013 Influenza Vaccine (FLU shot) Completed 07/12/2024, 04/21/2019, 05/04/2018 HPV (Gardasil) Vaccine Aged Out No lo nger eligible based on patient's age to complete this topic MENINGOCOCCAL (MENACTRA/MENVEO) Aged Out No longer eligible based on patient's age to complete this topic Meningitis B Vaccine (Bexsero/Trumemba) Aged Out No longer eligible based on patient's age to complete this topic Pneumococcal Vaccine: Pediatrics (0 to 5 Years) and At-Risk Patients (6 to 18 Years and 19+ Years) Aged Out No longer eligib le based on patient's age to complete this topic documented as of this encounter Medical Devices Not on filedocumented as of this encounter Results * EKG (09/29/2024 10:23 AM EDT) 09/29/2024 10:2 3 AM EDT Narrative Procedure Note Jaden Ng MD - 09/29/2024 10:23 AM EDT REASON FOR STUDY: palpitations;palpitations CONCLUSIONS: Sinus rhythm with frequent Premature ventricular complexes Otherwise normal ECG When compared with ECG of 23-Sep-2024 11:59, Premature ventricular complexes are now Present Ventricular Rate: 70 Atrial Rate: 70 NH Interval: 128 QRS Duration: 82 QT/QTc: 406/438 ms P-R-T [place]: 47 : 59 : 48 degrees Zackary Arroyo MD EKG Final Resul t [facility] documented in this encounter Visit Diagnoses Diagnosis Palpitations- Primary Palpitations documented in this encounter Care Teams Shop Supervisor Relationship Specialty Start Date End Date Krystle Garcia DO [address] [facility] [place] [address] PCP - General Family Medicine 05/08/20 documented as of this encounter
--- OUTSIDE RECORDS SUMMARY | 2024-10-04 07:28 | External Medical Summary ---
Author Name Unknown Address Unknown Organization [id number]:[facility] - [address] [place] [address] Laboratory Report Ordering Provider Test Date Status JUAN M PA 09/29/2024 11:05:07 Final Normal: <30 mg/g creatinine< br/>High: 30-300 mg/g creatinine
Very High: >300 mg/g creatinine
Nephrotic: >2200 mg/g creatinine Observation Date Value Abnormality Reference (Units ) Status Albumin, Urine 09/29/2024 11:05:07 <1.20 (mg/dL) Final Creatinine, Urine 09/29/2024 11:05:07 60 (mg/dL) Final Albumin/Creatinine [Mass Ratio] in Urine 09/29/2024 11:05:07 <20 <30 (mg/g Creat) Final Performing Location [facility] [place] - [address] [place] [address]
--- OUTSIDE RECORDS SUMMARY | 2024-10-04 07:28 | External Medical Summary | Summary of Care ---
Author Name Unknown Organization [facility] Address [address] [place] [address] Phone [phone] Care Team Providers Care Social Group Worker Name Role Phone GarciaAilinie Idalmis Primary Care Provider +1- [phone] Reason for Visit * Reason Comments Outpatient Testing Encounter Details Date Type Department Care Team (Late st Contact Info) Description 09/23/2024 2:00 PM EDT Laboratory Laboratory [facility] [place] [address] [place] [address] [place], [facility] [address] [place] [address] Palpitations Allergies Active Allergy Reactions Criticality Noted Date Comments Meloxicam Edema face/lips/tongue High 10/20/2013 Hydrocodone-Acetaminophen Rash 10/20/2013 documented as of this encounter (statuses as of 09/23/2024) Medications Vitamin C 250 MG Vaginal Tablet Administer into the vagina. Active Digestive Health Probiotic Oral Capsule Take by mouth. Activ e Elderberry 500 MG Oral Capsule Take by mouth. Ac tive predniSONE 10 MG Oral Tablet (Deltasone)Indica tions:Acute pain of right shoulder Take 5 tabs for 2 days, 4 tabs for 2 days, 3 tabs for 2 days, 2 tabs for 2 days 1 tab for 2 days 30 Tablet 5 Active Cyclobenzaprine HCl 10 MG Oral Tablet (Flexeril)Indicat ions:Acute pain of right shoulder Take 1 Tablet by mouth at bedtime as needed for Muscle spasms. 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 05/08/2020 12/05/2022 CHRIS (generalized anxiety disorder) 05/08/2020 12/05/2022 Acute anterior epistaxis 01/28/2016 S/P nasal septoplasty 01/28/20162019 S/P functional endoscopic sinus surgery 01/28/2016 05/08/2020 Deviated septum 12/12/2015 05/08/2020 Nasal turbinate hypertrophy 01/23/2015 05/08/2020 documented as of this encounter (statuses as of 09/23/2024) Immunizations Name Administration Dates Next Due Seasonal [...] for ages 0-17 years) Not on file Food Insecurity Answer Date Recorded Do you [...] AM EST documented as of this encounter Plan of Treatment Upcoming Encounters Date Type Department Care Team (Late st Contact Info) Description 06/23/2025 4:40 PM EST Office Visit Family [facility] [address] [place] [address] Madi Pugh PA-C [address] [place] [address] Pending Results Name Type Priority Associated Diagnoses Date /Time TSH WITH FREE T4 IF INDICATED Lab Routine Palpitations 09/23/2024 1:47 PM EDT Health Maintenance Due Date Last Done Comments HIV Screening 12/23/1999 Hepatitis C Screening 2002 Hepatitis B Vaccine (1 of 3 - 19+ 3-dose series) 12/23/2003 COVID-19 Vaccine ( season) 2024 Depression Screening 06/21/2025 06/21/2024 Diabetes [...] Not on filedocumented as of this encounter Visit Diagnoses Diagnosis Palpitations documented in this encounter Care Teams Social Group Worker Relationship Specialty Start Date End Date Krystle Garcia DO [address] [place] [address] PCP - General Family Medicine 05/08/20 documented as of this encounter
--- OUTSIDE RECORDS SUMMARY | 2024-10-04 07:28 | External Medical Summary ---
Author Name Unknown Address Unknown Organization [id number]:LABORATORY [place] [address] [address] [address] Laboratory Report Ordering Provider Test Date Status JUAN M PA 09/29/2024 11:05:07 Final Observation Date Value Abnormality Reference (Units ) Status SYNC LEUKOCYTES IN BLOOD BY AUTOMATED COUNT 09/29/2024 11:05:07 7.75 4.00-10.80 (K/uL) Final Segs 09/29/2024 11:05:07 62.3 40.0-75.0 (%) Final Lymphs % 09/29/2024 11:05:07 26.1 18.0-42.0 (%) Final Monos 09/29/2024 11:05:07 9.3 1.0-11.0 (%) Final Eosinophils 09/29/2024 11:05:07 1.5 0.0-6.0 (%) Final Basos 09/29/2024 11:05:07 0.5 0.0-2.0 (%) Final Immature Granulocyte, Percent 09/29/2024 11:05:07 0.3 0.0-2.0 (%) Final Absolute Segs 09/29/2024 11:05:07 4.83 1.80-7.70 (K/uL) Final Lymphs, absolute 09/29/2024 11:05:07 2.02 1.00-4.80 (K/ul) Final Monos, Abs 09/29/2024 11:05:07 0.72 0.00-1.10 (K/uL) Final Eos, Abs 09/29/2024 11:05:07 0.12 0.00-0.70 (K/uL) Final Basos, Abs 09/29/2024 11:05:07 0.04 0.00-0.20 (K/uL) Final Immature Granulocytes, Number 09/29/2024 11:05:07 0.02 0.00-0.20 (K/uL) Final Performing Location [facility] - [address] [facility] [address]
--- OUTSIDE RECORDS SUMMARY | 2024-10-04 07:28 | External Medical Summary ---
Author Name Unknown Address Unknown Organization [id number]:[facility]ATORY [facility] [place] - [address] [place] [address] Laboratory Report Ordering Provider Test Date Status JUAN M PA 09/29/2024 11:05:07 Final Observation Date Value Abnormality Reference (Units ) Status BUN 09/29/2024 11:05:07 15 6-20 (mg/dL) Final Creatinine 09/29/2024 11:05:07 0.7 0.5-1.0 (mg/dL) Final Glomerular filtration rate/1.73 sq M.predicted [Volume Rate/Area] in Serum, Plasma or Blood by Creatinine-based formula (CKD-EPI) 09/29/2024 11:05:07 >90 >=60 (mL/min) Final eGFR is calculated based on the CKD-EPI 2020 equation. Sodium 09/29/2024 11:05:07 141 135-146 (m mol/L) Final Potassium 09/29/2024 11:05:07 4.1 3.5-5.1 (m mol/L) Final Cl 09/29/2024 11:05:07 104 98-107 (mm ol/L) Final CO2 09/29/2024 11:05:07 25 22-32 (mmo l/L) Final Anion gap 09/29/2024 11:05:07 12 7-15 (mmol /L) Final Glucose 09/29/2024 11:05:07 87 70-120 (mg /dL) Final Albumin 09/29/2024 11:05:07 4.5 3.8-5.0 (g /dL) Final AST (Aspartate aminotransferase) 09/29/2024 11:05:07 22 10-35 (U/L) Final Alk Phos 09/29/2024 11:05:07 69 35-130 (U/ L) Final Bilirubin, Total 09/29/2024 11:05:07 0.3 <=1 .2 (mg/dL) Final Calcium 09/29/2024 11:05:07 9.8 8.4-10.2 ( mg/dL) Final Protein 09/29/2024 11:05:07 6.9 6.0-8.3 (g /dL) Final ALT (Alanine aminotransferase) 09/29/2024 11:05:07 31 10-35 (U/L) Final Performing Location LABORATORY [facility] - [address] [facility] [address]
--- OUTSIDE RECORDS SUMMARY | 2024-10-04 07:28 | External Medical Summary ---
Author Name Unknown Address Unknown Organization K01:[facility] - [address] [place] [address] Laboratory Report Ordering Provider Test Date Status JUAN M PA 09/29/2024 11:05:07 Final Observation Date Value Abnormality Reference (Units ) Status HbA1C 09/29/2024 11:05:07 5.1 4.0-5.6 (% ) Final The use of HbA1c to monitor glycemic status is based on normal hemoglobin and HbA composition. This test should not be used in patients with abnormal hemoglobin that affects the half life of the red blood cell or the in vivo glycation rates. Glucose, estimated average 09/29/2024 11:05:07 100 <126 (mg/dL) Final Performing Location LABORATORY [facility] - [address] [place] [address]
--- OUTSIDE RECORDS SUMMARY | 2024-10-04 07:28 | External Medical Summary ---
Author Name Unknown Address Unknown Organization K01:[facility] - [address] [place] [address] Laboratory Report Ordering Provider Test Date Status THIERNOJUAN M 09/29/2024 11:05:07 Final Observation Date Value Abnormality Reference (Units ) Status Magnesium 09/29/2024 11:05:07 2.2 1.5-2.6 (m g/dL) Final Performing Location [facility] - [address] [place] [address]
--- OUTSIDE RECORDS SUMMARY | 2024-10-04 07:28 | External Medical Summary ---
Author Name Unknown Address Unknown Organization K01:[facility] - [address] [place] [address] Laboratory Report Ordering Provider Test Date Status JUAN M PA 09/29/2024 11:05:07 Final Deficient: <20 ng/mL
Ins ufficient: 20-29 ng/mL
Recommended/Optimum:30-50 ng/mL

Vitamin D intoxication is rare. If suspicious of Vitamin D toxicity, evaluation of serum Calcium and PTH is recommended. Observation Date Value Abnormality Reference (Units ) Status 25-OH Vitamin D total 09/29/2024 11:05:07 20 >19 (ng/mL) Final Performing Location LABORATORY [facility] - [address] [place] [address]
--- OUTSIDE RECORDS SUMMARY | 2024-10-04 07:28 | External Medical Summary | Summary of Care ---
Author Name Unknown Organization [facility] Address [address] [place] [address] Phone [phone] Care Team Providers Care Disability Insurance Claim Examiner Name Role Phone Krystle Garcia Primary Care Provider +1- [phone] Reason for Visit * Reason Comments EKG Encounter Details Date Type Department Care Team (Late st Contact Info) Description 09/23/2024 1:20 PM EDT Nurse Only Ancillary [address], [place] [address] [place], [place] [id number] [place], Nurse Fp [address] [place] [address] EKG Allergies Active Allergy Reactions Criticality Noted Date [...] Active Zepbound 5 MG/0.5ML Subcutaneous Solution Auto-injector ([facility]) Inject 5 mg (1 pen) under [...] 06/23/2025 4:40 PM EST Office Visit Family [facility] [address] [place] [address] Madi Pugh PA-C [address] [place] [address] Health Maintenance Due Date Last Done Comments HIV Screening 12/23/1999 Hepatitis C Screening 2002 Hepatitis B Vaccine (1 of 3 - 19+ 3-dose series) 12/23/2003 COVID-19 Vaccine (2023- season) 2024 Depression Screening 06/21/2025 06/21/2024 Diabetes [...] Not on filedocumented as of this encounter Care Teams Disability Insurance Claim Examiner Relationship Specialty Start Date End Date Krystle Garcia DO [address] [place] [address] PCP - General Family Medicine 05/08/20 documented as of this encounter
--- OUTSIDE RECORDS SUMMARY | 2024-10-04 07:28 | External Medical Summary ---
Author Name Unknown Address Unknown Organization K01:LABORATORY [facility] [place] [place] - [address] [place] [address] Laboratory Report Ordering Provider Test Date Status JUAN M PA 09/29/2024 11:05:07 Final Observation Date Value Abnormality Reference (Units ) Status TSH 09/29/2024 11:05:07 1.80 0.27-4.20 (uIU/mL) Final Performing Location [facility] - [address] [place] [address]
--- OUTSIDE RECORDS SUMMARY | 2024-10-04 07:28 | External Medical Summary | Summary of Care ---
Author Name Unknown Organization [facility] Address [address] [place] [address] Phone [phone] Care Team Providers Care International Coordinator Name Role Phone GarciaOralKrystledolores Raygoza DO Primary Care Provider +1- [phone] Reason for Visit * Reason Comments Outpatient Testing Encounter Details Date Type Department Care Team (Late st Contact Info) Description 09/29/2024 11:20 AM EDT Laboratory Laboratory [facility] [place] [address] [facility] [place] [address] [place], Lab [facility] [address] [facility] [place] [id number] Palpitations Allergies Active Allergy Reactions Criticality Noted Date Comments Meloxicam Edema face/lips/tongue High 10/20/2013 Hydrocodone-Acetaminophen Rash 10/20/2013 documented as of this encounter (statuses as of 09/29/2024) Medications Vitamin C 250 MG Vaginal Tablet Administer into the vagina. Active Digestive Health Probiotic Oral Capsule Take by mouth. Activ e Elderberry 500 MG Oral Capsule Take by mouth. Active Cyclobenzaprine HCl 10 MG Oral Tablet (Flexeril)Indic ations:Acute pain of right shoulder Take 1 Tablet by mouth at bedtime as needed for Muscle spasms. 30 Tablet Active documented as of this encounter (statuses [...] 06/21/2024 Does the household have a re lar source of income? (Household - for ages [...] 7:15 AM EDT Cardiac Studies Cardiac Studies, [facility] [address] [facility] [place] [address] 06/23/2025 4:40 PM EST Office Visit Family Practice [address] [place] [address] Madi Pugh PA-C [address] [place] [address] Pending Results Name Type Priority Associated Diagnoses [...] Lab Routine Palpitations 09/29/2024 11:05 AM EDT ANEMIA CBC Lab Routine Palpitations 09/29/2024 11:05 AM EDT DIFFERENTIAL, AUTOMATED Lab Routine Palpitations 09/29/2024 11:05 AM EDT ANEMIA REFLEX CHEMISTRY HOLD Lab Routine Palpitations 09/29/2024 11:05 AM EDT Health Maintenance Due Date Last Done [...] Palpitations documented in this encounter Care Teams International Coordinator Relationship Specialty Start Date End Date Krystle Garcia DO [address] [facility] [place] [address] PCP - General Family Medicine 05/08/20 documented as of this encounter
--- OUTSIDE RECORDS SUMMARY | 2024-10-04 07:28 | External Medical Summary ---
Author Name Unknown Address Unknown Organization K01:LAB[facility]ATORY [facility] - [address] [place] [address] Laboratory Report Ordering Provider Test Date Status JUAN M PA 09/29/2024 11:05:07 Final Observation Date Value Abnormality Reference (Units ) Status WBC, Total 09/29/2024 11:05:07 7.75 4.00-10.8 0 (K/uL) Final RBC 09/29/2024 11:05:07 4.80 3.85-5.15 (M/uL) Final Hemoglobin 09/29/2024 11:05:07 13.9 12.0-15.3 (g/dL) Final Anemia reflex testing trigge rs on a HGB < 12.0 for Females and HGB < 13.0 for Males in accordance with the WHO Anemia Guidelines
Anemia reflex testing triggers on a HGB < 12.0 for Females and HGB < 13.0 for Males in accordance with the WHO Anemia Guidelines HCT 09/29/2024 11:05:07 44.2 36.0-45.2 (%) Final MCV 09/29/2024 11:05:07 92.1 81.5-97.5 (fL) Final MCH 09/29/2024 11:05:07 29.0 27.0-34.0 (pg) Final MCHC 09/29/2024 11:05:07 31.4 32.0-36.0 (g/dL) Final RDW 09/29/2024 11:05:07 13.1 11.5-15.5 (%) Final Platelets 09/29/2024 11:05:07 245 140-400 (K /uL) Final MPV 09/29/2024 11:05:07 11.9 6.6-11.1 ( fL) Final Nucleated erythrocytes/100 leukocytes [Ratio] in Blood by Automated count 09/29/2024 11:05:07 0 <=0 (/100 WBCs) Fi nal Performing Location [facility] - [address] [place] [address]
--- OUTSIDE RECORDS SUMMARY | 2024-10-04 07:28 | External Medical Summary | Summary of Care ---
Author Name Unknown Organization [facility] Address [address] [place] [address] Phone [phone] Care Team Providers Care Cash Application Representative Name Role Phone Garcia, Krystle Idalmis Primary Care Provider +1- [phone] Reason for Referral * Precert (Diagnostic Medical) (Within 10 days (routine)) - Authorized Specialty Diagnoses / Procedures Referred By Contac t Referred To Contact Cardiac Studies Diagnoses Palpitations Procedures ECHO, COMPLETE (2D), TRANS-THORACIC Zackary Arroyo MD [address] [place] [address] Phone: tel: fax: Referral ID Status Reason Start Date Expiration Date V isits Requested Visits Authorized [id number] Authorized Precert 09/29/[phone] Reason for [...] Encounter Details Date Type Department Care Team ([facility] st Contact Info) Description 09/29/2024 10:20 AM EDT Office Visit [facility] [address] [place] [address] [place] [address] [place] [address] Palpitations* Allergies Active Allergy Reactions Criticality Noted [...] ) Zepbound 5 MG/0.5ML Subcutaneous Solution Auto-injector ([facility] Management) Inject 5 mg (1 pen) under [...] AM EDT 09/29/24 10:50 AM Serial Number: [id number] Nadya Khoury LPN Zio patch applied in [...] performed by Dyllan Benton MD at OR [facility] PARTIAL HYSTERECTOMY 09/2015 R ovary remains REMOVAL OF TURBINATE BONES Bilateral 01/15/2016 SUBMUCOUS RESECTION INFERIOR TURBINATE performed by Dyllan Benton MD at OR [facility] REPAIR OF NASAL SEPTUM N/A 01/15/2016 SEPTOPLASTY performed by Dyllan Benton MD at OR [facility] SHOULDER ARTHROSCOPY SURGERY 11/23 and 04/25 Social [...] 7:15 AM EDT Cardiac Studies Cardiac Studies, [address] [place] [address] 06/23/2025 4:40 PM EST Office Visit Family Practice [place] [address] [place] [address] Madi Pugh PA-C [address] [place] [address] Pending Results Name Type Priority Associated Diagnoses [...] Present Ventricular Rate: 70 Atrial Rate: 70 VA Interval: 128 QRS Duration: 82 QT/QTc: 406/438 ms P-R-T [place]: 47 : 59 : 48 degrees Zackary Arroyo MD EKG Final [facility]ul [facility] documented in this encounter Visit Diagnoses Diagnosis Palpitations- Primary Palpitations documented in this encounter Care Teams Cash Application Representative Relationship Specialty Start Date End Date Krystle Garcia DO [address] [facility] [place] [address] PCP - General Family Medicine 05/08/20 documented as of this encounter
--- OUTSIDE RECORDS SUMMARY | 2024-10-04 07:29 | External Medical Summary | Summary of Care ---
Author Name Unknown Organization [facility] Address [address] [facility] [place] [address] Phone [phone] Care Team Providers Care Cable Splicing Technician Name Role Phone Joes Krystle Idalmis Primary Care Provider +1- [phone] Encounter Details Date Type Department Care Team ([facility] st Contact Info) Description 06/29/2024 Refill [address]ocr[address] [place] [address] Leslie Tineo PA-C [address] [place] [address] [place] [address] Allergies Active Allergy Reactions Criticality Noted Date Comments Meloxicam Edema face/lips/tongue High 10/20/2013 Hydrocodone-Acetaminophen Rash 10/20/2013 documented as of this encounter (statuses as of 06/30/2024) Medications Zepbound 5 MG/0.5ML Subcutaneous Solution Auto-injector ([facility] Management) Inject 5 mg (1 pen) under the skin weekly 2 mL 4 Active Zepbound 5 MG/0.5ML Subcutaneous Solution Auto-injector ([facility] Management) Inject 5 mg (1 pen) under the skin weekly 2 mL 06/24/2024 8:44 AM EST 4 06/29/20 24 Discontinu ed(Refill) documented as of this encounter (statuses as of 06/30/2024) Active Problems Problem Noted Date Diagnosed Date BMI 40.0-44.9, adult 12/25/2020 Overview: Per Obesity protocol Rhinosinusitis 01/23/2015 documented as of this encounter (statuses as of 06/30/2024) Resolved Problems Problem Noted Date Diagnosed Date Resolved Date 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 05/08/2020 12/05/2022 CHRIS (generalized anxiety disorder) 05/08/2020 12/05/2022 Acute anterior epistaxis 01/28/2016 S/P nasal septoplasty 01/28/20162019 S/P functional endoscopic sinus surgery 01/28/2016 05/08/2020 Deviated septum 12/12/2015 05/08/2020 Nasal turbinate hypertrophy 01/23/2015 05/08/2020 documented as of this encounter (statuses as of 06/30/2024) Immunizations Name Administration Dates Next Due Seasonal Influenza Virus Vac cine, Unspecified Formulation 04/21/2019,05/04/2018 TDAP (age 10 and older)(Boostrix) 06/16/2019 documented [...] ages 0-17 years) Not on file 06/21/2024 Comments No Sex and Gender Information Value Date Recorded Sex Assigned at Female 06/21/2024 11:08 AM EST Legal Sex Female 5:39 AM EST Gender Identity Female 06/21/2024 11:08 AM EST Sexual Orientation Straight 06/21/2024 11 :08 AM EST documented as of this encounter Miscellaneous Notes * Telephone Encounter - Curt Wellington PA-C - 06/30/2024 11:31 AM ESTSigned Prescriptions: Disp Refills Zepbound 5 MG/0.5ML Subcutaneous Solution *2 mL 0 Sig: Inject 5 mg (1 pen) under the skin weeklyAuthorizing Provider: CURT WELLINGTON * Telephone Encounter - Ashlee Gillis [facility] - 06/29/2024 11:26 AM EST There are no refills remaining on current Zepbound prescription. Pending to provider for review. Ashlee Gillis RPh Clinical Pharmacist 06/29/24,11:26 AM documented in this encounter Plan of Treatment Upcoming Encounters Date Type Department Care Team (Late st Contact Info) Description 09/05/2024 3:40 PM EST Nurse Only [address] [place] [address] [place], Nurse Fp [place] [address] [place] [address] 09/19/2024 1:00 PM EDT Office Visit Nutrition & Weight Management, [facility] [place] [address] [place] [address] Ivon Rios CRNP [address] [place] [address] 06/23/2025 4:40 PM EST Office Visit Family Practice [place] [address] [place] [address] Madi Pugh PA-C [address] [place] [address] Health Maintenance Due Date Last Done Comments HIV Screening 12/23/1999 Hepatitis C Screening 2002 Hepatitis B Vaccine (1 of 3 - 19+ 3-dose series) 12/23/2003 COVID-19 Vaccine ( season) 2024 Influenza Vaccine (FLU shot) (#1) 2024 04/21/2019, 05/04/2018 Depression Screening 06/21/2025 06/21/2024 Diabetes Screening 06/21/2027 06/21/2024, 1 08/22/2023, 04/09/2022, Additional history exists DTap/Tdap Vaccines (2 - Td or Tdap) 06/16/2029 06/16/2019 Pap Smear Discontinued 10/20/2013 HPV (Gardasil) Vaccine Aged Out No lo nger eligible based on patient's age to complete this topic MENINGOCOCCAL (MENACTRA/MENVEO) Aged Out No longer eligible based on patient's age to complete this topic Pneumococcal Vaccine: Pediatrics (0 to 5 Years) and At-Risk Patients (6 to 64 Years) Aged Out No longer eligible based on patient's age to complete this topic documented as of this encounter Medical Devices Not on filedocumented as of this encounter Care Teams Cable Splicing Technician Relationship Specialty Start Date End Date Krystle Garcia DO [address] [facility] [place] [address] PCP - General Family Medicine 05/08/20 documented as of this encounter
--- OUTSIDE RECORDS SUMMARY | 2024-10-04 07:29 | External Medical Summary | Summary of Care ---
Author Name Unknown Organization [facility] Address [address] [place] [address] Phone [phone] Care Team Providers Care Wafer Line Worker Name Role Phone Krystle Garcia DO Primary Care Provider [phone]- [phone] Reason for Visit * Reason Comments Acute Right shoulder pain for past 2 months, no specific injury, worsening, taking OTC pain meds and has tried heat and ice. Encounter Details Date Type Department Care Team (Late st Contact Info) Description 09/08/2024 10:00 AM EST Office Visit Family [facility] [address] [place] [address] Mukul Wilkes PA-C [address] [place] [address] Acute pain of right shoulder* Allergies Active Allergy Reactions Criticality Noted Date Comments Meloxicam Edema face/lips/tongue High 10/20/2013 Hydrocodone-Acetaminophen Rash 10/20/2013 documented as of this encounter (statuses as of 09/08/2024) Medications Zepbound 5 MG/0.5ML Subcutaneous Solution Auto-injector (Tirzepatide-[facility]) Inject 5 mg (1 pen) under the skin weekly 2 mL 08/18/2024 12:02 PM EST Active Vitamin C 250 MG Vaginal Tablet Administer [...] for Muscle spasms. 30 Tablet 5 Active documented as of this encounter (statuses as of 09/08/2024) Active Problems Problem Noted Date Diagnosed Date Rhinosinusitis 01/23/2015 documented as of this encounter (statuses as of 09/08/2024) Resolved Problems Problem Noted Date Diagnosed Date [...] as of this encounter (statuses as of 09/08/2024) Immunizations Name Administration Dates Next Due Seasonal Influenza Virus Vac cine, Unspecified Formulation 04/21/2019,05/04/2018 Seasonal Influenza, Trivalent, (IIV3), PF, (Fluz one) 07/12/2024 TDAP (age 10 and older)(Boostrix) 06/16/2019 documented as of this encounter Social History Tobacco Use Types Packs/Day Years Used Date Smoking Tobacco: Never Smokeless Tobacco: Never Tobacco Cessation:Counseling Given: Not Answered Alcohol Use Standard Drinks/Week Comments No 0 [...] No 06/21/2024 Does the household have a [facility] [place] [facility] income? (Household - for ages [...] Sign Reading Time Taken Comments Blood Pressure 116/64 09/08/2024 9:43 AM EST Pulse 90 09/08/2024 9:43 AM EST Temperature 36.8 C (98.2 F) 09/08/2024 9:43 AM ES T Respiratory Rate 18 09/08/2024 9:43 AM EST Oxygen Saturation 100% 09/08/2024 9:43 AM EST Inhaled Oxygen Concentration - - Weight 94.1 kg (207 lb 6.4 oz) 09/08/2024 9:43 A M EST Height - - Body Mass Index 39.84 06/21/2024 11:12 AM EST documented in this encounter Progress Notes * Mukul Wilkes PA-C - 09/08/2024 9:46 AM EST Images from the original note were not included. History of Present Illness Rhiannon Andres is a 38 year old female that presents for acute visit. Pt reports right shoulder pain for past 2 months. Denies specific injury. States it has been progressively worsening. Has been taking OTC pain meds and has tried heat and ice. She has a history of injury to the left shoulder in the past which included impingement after a fall. This was corrected via surgery. She feels that her current right shoulder symptoms are similar innature to what she had with her left shoulder. Patient Active Problem List Diagnosis Rhinosinusitis BMI 40.0-44.9, adult ([facility]) Review of patient's allergies indicates: Allergen Reactions Meloxicam Edema face/lips/tongue Vicodin [Hydrocodone-Acetaminophen] Rash Current Outpatient Medications Medication Sig Dispense Refill Zepbound 5 MG/0.5ML Subcutaneous Solution Auto-injector (Tirzepatide-[facility] Management) Inject 5 mg(1 pen) under the skin weekly 2 mL 0 Vitamin C 250 MG Vaginal Tablet Administer into the vagina. Digestive Health Probiotic Oral Capsule Take by mouth. Elderberry 500 MG Oral Capsule Take by mouth. predniSONE 10 MG Oral Tablet (Deltasone) Take 5 tabs for 2 days, 4 tabs for 2 days, 3 tabs for 2 days, 2 tabs for 2 days 1 tab for 2 days 30 Tablet 0 Cyclobenzaprine HCl 10 MG Oral Tablet (Flexeril) Take 1 Tablet by mouth at bedtime as needed for Muscle spasms. 30 Tablet 0 No current facility-administered medications for this visit. Past Medical History: Diagnosis Date Anxiety Depression [...] performed by Dyllan Benton MD at OR [facility] PARTIAL HYSTERECTOMY 09/2015 R ovary remains REMOVAL OF TURBINATE BONES Bilateral 01/15/2016 SUBMUCOUS RESECTION INFERIOR TURBINATE performed by Dyllan Benton MD at OR [facility] REPAIR OF NASAL SEPTUM N/A 01/15/2016 SEPTOPLASTY performed by Dyllan Benton MD at OR [facility] SHOULDER ARTHROSCOPY SURGERY 11/23 and 04/25 Family History Problem Relation Name Age of Onset Cancer Grandmother (Maternal) skin CA Diabetes Grandmother (Maternal) Ear Problems Grandmother (Maternal) Heart Disorder Grandfather (Maternal) Allergies Daughter lactose intolerant, dust mites Asthma Daughter Gastro-intestinal disorder Daughter Lung Disorder Daughter Family Status Relation Status Mo Alive Fa Alive Sis Alive Giacomo Alive Giacomo Alive MGMA Alive MGFA Alive PGMA Alive PGFA Alive Giacomo (Not Specified) Giacomo (Not Specified) Giacomo (Not Specified) Giacomo (Not Specified) Social History Socioeconomic History Marital status: Single Tobacco Use Smoking status: Never Smokeless tobacco: Never Vaping Use Vaping status: Never Used Substance and Sexual Activity Alcohol use: No Drug use: Never Sexual activity: Yes Partners: Male Social Needs Financial Resource Strain: Low Risk (06/21/2024) Financial Resource Strain Do you have any trouble paying for your medications, or do you think you might in the future? (Adult - for ages 18 years and over): No Food Insecurity: No Food Insecurity (06/21/2024) Food Insecurity Worried About Running Out of Food in the Last Year: Never true Ran Out of Food in the Last Year: Never true Do you need food for this week? (Adult - for ages 18 years and over): No Transportation Needs: No Transportation Needs (06/21/2024) Transportation Needs Has lack of transportation kept you from medical appointments, meetings, work, or from getting things needed for daily living? Check all that apply. (Adult - for ages 18 years and over): No Social Connections: Socially Integrated (06/21/2024) Social Connections How often do you feel lonely or isolated from those around you? (Adult - for ages 18 years and over): Rarely Housing Stability: Low Risk (06/21/2024) Housing Stability Do you currently live in a penitentiary or have no steady place to sleep at night? (Adult - for ages 18 years and over): No Are you homeless or worried that you might be in the future? (Adult - for ages 18 years and over): No Review of Systems Constitutional: Negative. Negative for chills and fever. Respiratory: Negative. Cardiovascular: Negative. Musculoskeletal: Positive for arthralgias and myalgias. Skin: Negative. Negative for rash. Neurological: Positive for weakness. Negative for numbness. Psychiatric/Behavioral: Negative. All other systems reviewed and are negative. Physical Exam BP 116/64 | Pulse 90 | Temp 98.2 F (36.8 C) (Temporal Artery) | Resp 18 | Wt 207 lb 6.4 oz (94.1 kg) | SpO2 100% | BMI 39.84 kg/m | BSA 2 m Physical Exam Vitals and nursing note reviewed. Constitutional: Appearance: Normal appearance. She is obese. Cardiovascular: Rate and Rhythm: Normal rate and regular rhythm. Heart sounds: Normal heart sounds. No murmur heard. Pulmonary: Effort: Pulmonary effort is normal. Breath sounds: Normal breath sounds. Musculoskeletal: Comments: Right shoulder normal to inspection; range of motion moderately limited secondary to pain; Neer sign strongly positive, she is able to raise her arm about 90; supraspinatus and teres minor/subscapularis positive; infraspinatus negative; xjlx-sd-xhyxdste tenderness to palpation over AC joint Neurological: General: No focal deficit present. Mental Status: She is alert and oriented to person, place, and time. Psychiatric: Mood and Affect: Mood normal. Behavior: Behavior normal. Thought Content: Thought content normal. Judgment: Judgment normal. I have reviewed most recent labs BMP results Recent Labs Units 06/21/24 1133 SODIUM - [facility] mmol/L 140 POTASSIUM - [facility] mmol/L 4.1 CHLORIDE - [facility] mmol/L 104 CO2 - [facility] mmol/L 23 CREATININE - [facility] mg/dL 0.7 BUN - [facility] mg/dL 12 CBC results Recent Labs Units 06/21/24 1133 WBC K/uL 6.02 HGB g/dL 14.1 HCT % 44.1 PLT K/uL 227 HbA1c results Recent Labs Units 06/21/24 1133 HEMOGLOBIN A1C - [facility] % 5.0 Hepatic panel results Recent Labs Units 06/21/24 1133 PROTEIN - [facility] g/dL 6.6 BILIRUBIN, TOTAL - [facility] mg/dL 0.4 ALKALINE PHOSPHATASE - [facility] U/L 59 AST - [facility] U/L 16 ALT - [facility] U/L 13 Assessment and Plan Acute pain of right shoulder Her physical exam suggests AC arthritis, some impingement, and some rotator cuff involvement. Will update x-ray and start medication including prednisone and cyclobenzaprine. Consider PT if symptoms persist. - XR SHOULDER, 2 OR MORE VIEWS - predniSONE 10 MG Oral Tablet (Deltasone); Take 5 tabs for 2 days, 4 tabs for 2 days, 3 tabs for 2days, 2 tabs for 2 days 1 tab for 2 days - Cyclobenzaprine HCl 10 MG Oral Tablet (Flexeril); Take 1 Tablet by mouth at bedtime as needed forMuscle spasms. Wrap-Up Follow Up: Return if symptoms worsen or fail to improve, for As needed. | For: As needed Time: I spent a total of 10-19 minutes (exact time 17 mins) on the date of service in preparation, delivery, and documentation of the care provided to Rhiannon Andres excluding any time spent in the performance of separately billed services. documented in this encounter Nursing Notes * Nadya Khoury LPN - 09/08/2024 9:45 AM EST Chief Complaint Patient presents with Acute Right shoulder pain for past 2 months, no specific injury, worsening, taking OTC pain meds and has tried heat and ice. documented in this encounter Miscellaneous Notes * Pt Handout (on AVS) - Mukul Wilkes PA-C - 09/08/2024 10:04 AM EST [id number] Shoulder Sprain A sprain is a stretching or tearing of the ligaments that hold a joint together. A sprain may take up to 8 weeks or longer to fully heal, depending on how severe it is. Moderate to severe shoulder sprains are treated with a sling or shoulder immobilizer. Minor sprains can be treated without any special support. Home care The following guidelines will help you care for your injury at home: If a sling was given to you, leave it in place for the time advised by your healthcare provider.If you aren?t sure how long to wear it, ask for advice. If the sling becomes loose, adjust it so that your forearm is parallel to the ground. Your shoulder should feel well supported. Put an ice pack on the injured area for 20 minutes every 1 to 2 hours the first day. You can make your own ice pack by putting ice cubes in a plastic bag. A bag of frozen peas or something similarworks well too. Wrap the bag in a thin towel. Continue with ice packs 3 to 4 times a day for the next 2 to 3 days. Then use the pack as needed to ease pain and swelling. You may use acetaminophen or ibuprofen to control pain, unless another pain medicine was prescribed. If you have chronic liver or kidney disease, talk with your healthcare provider before using these medicines. Also talk with your provider if you?ve had a stomach ulcer, have gastrointestinal bleeding, or take a blood thinner. Shoulder joints become stiff if left in a sling for too long. You should start range of motion exercises usually about 7 to 10 days after the injury. Talk with your provider to find out what type of exercises to do and how soon to start. Follow-up care Follow up with your healthcare provider, or as advised. Any X-rays you had today don?t show any broken bones, breaks, or fractures. Sometimes fractures don?t show up on the first X-ray. Bruises and sprains can sometimes hurt as much as a fracture. These injuries can take time to heal completely. If your symptoms don?t improve or they get worse, talk with your provider. You may need repeat X-rays or other treatments. When to seek medical advice Call your healthcare provider right away if any of the following occur: Shoulder pain or swelling in your arm that gets worse Fingers become cold, blue, numb, or tingly Large amount of bruising of the shoulder or upper arm Fever or chills Last Reviewed Date: 2022 00:00:00 [id number] [employer]. All rights reserved. This information is not intended as a substitute for professional medical care. Always follow your healthcare professional's instructions. documented in this encounter Plan of Treatment Upcoming Encounters Date Type Department Care Team (Late st Contact Info) Description 06/23/2025 4:40 PM EST Office Visit Family Practice [address] [place] [address] Madi Pugh PA-C [address] [place] [address] Scheduled Orders Name Type Priority Associated Diagnoses Orde r Schedule XR SHOULDER, 2 OR MORE VIEWS Medical Imaging Routine Acute pain of right shoulder Ordered: 09/08/2024 Health Maintenance Due Date Last Done Comments [...] as of this encounter Visit Diagnoses Diagnosis Acute pain of right shoulder- Primary documented in this encounter Care Teams Wafer Line Worker Relationship Specialty Start Date End Date Krystle Garcia DO [address] [facility] [place] [address] PCP - General Family Medicine 05/08/20 documented as of this encounter"
--- OUTSIDE RECORDS SUMMARY | 2024-10-04 07:29 | External Medical Summary | Summary of Care ---
Author Name Unknown Organization [facility] Address [address] [place] [address] Phone [phone] Care Team Providers Care Front Tender Name Role Phone Krystle Garcia DO Primary Care Provider +1- [phone] Encounter Details Date Type Department Care Team (Late st Contact Info) Description 09/23/2024 Telephone Family Practice [place] Val[place] Levy [address] [place] [address] Mukul Wilkes PA-C [address] [place] [address] Allergies Active Allergy Reactions Criticality Noted Date [...] Active Zepbound 5 MG/0.5ML Subcutaneous Solution Auto-injector ([facility]) Inject 5 mg (1 pen) under the [...] encounter Miscellaneous Notes * Telephone Encounter - Livier Haile CCMA - 09/23/2024 11:32 AM EDT Please assist scheduling pt on nurse schedule today, thank you * Telephone Encounter - Mukul Wilkes PA-C - 09/23/2024 11:29 AM EDT Pt reports increased palpitations over past couple days - occurring sporadically and without trigger. Denies chest pain, dyspnea. Severity can vary; can last a couple minutes at a time. Recently completed course of prednisone for arthritis, but this was a few days ago. She did not have sx's while on prednisone. documented in this encounter Plan of Treatment Upcoming Encounters Date Type Department Care Team (Late st Contact Info) Description 06/23/2025 4:40 PM EST Office Visit Family [facility] [address] [place] [address] Madi Pugh PA-C [address] [place] [place] [address] Pending Results Name Type Priority Associated Diagnoses Date /Time TSH WITH FREE T4 IF INDICATED Lab Routine Palpitations 09/23/2024 1:47 PM EDT Scheduled Orders Name Type Priority Associated Diagnoses Orde r Schedule TSH WITH FREE T4 IF INDICATED Lab Routine Palpitations Expected: 09/23/2024 (Approximate), Expires: 09/23/2025 Health Maintenance Due Date Last Done Comments HIV Screening 12/23/1999 Hepatitis C Screening 2002 Hepatitis B Vaccine (1 of 3 - 19+ 3-dose series) 12/23/2003 COVID-19 Vaccine ( - 2023- season) 2024 Depression Screening 06/21/2025 06/21/2024 Diabetes [...] as of this encounter Results * EKG (09/23/2024 11:59 AM EDT) 09/23/2024 11:5 9 AM EDT Narrative Procedure Note Yoan Henley DO - 09/23/2024 11:59 AM EDT REASON FOR STUDY: palpitations;palpitations CONCLUSIONS: Normal sinus rhythm with sinus arrhythmia Low voltage QRS, consider pulmonary disease, pericardial effusion, ornormal variant Borderline ECG No previous ECGs available Ventricular Rate: 71 Atrial Rate: 71 OR Interval: 134 QRS Duration: 78 QT/QTc: 426/462 ms P-R-T [place]: 53 : 4 : 18 degrees Mukul Wilkes PA-C EKG Final Result [facility] documented in this encounter Visit Diagnoses Diagnosis Palpitations- Primary Palpitations documented in this encounter Care Teams Front Tender Relationship Specialty Start Date End Date Krystle Garcia DO [address] [facility] [place] [address] PCP - General Family Medicine 05/08/20 documented as of this encounter
--- OUTSIDE RECORDS SUMMARY | 2024-10-04 07:29 | External Medical Summary | Summary of Care ---
Author Name Unknown Organization [facility] Address [address] [place] [address] Phone [phone] Care Team Providers Care Gang Investigator Name Role Phone GarciaKrystle Primary Care Provider [phone]- [phone] Encounter Details Date Type Department Care Team (Late st Contact Info) Description 07/18/2024 Orders Only Outcomes Research Department [address] [place] [address] Madeleine Serrano CHRA [employer] Other*[id number] Allergies Active Allergy Reactions Criticality Noted Date Comments Meloxicam Edema face/lips/tongue High 10/20/2013 Hydrocodone-Acetaminophen Rash 10/20/2013 documented as of this encounter (statuses as of 07/18/2024) Medications Zepbound 5 MG/0.5ML Subcutaneous Solution Auto-injector 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 05/08/2020 12/05/2022 CHRIS (generalized anxiety disorder) 05/08/2020 12/05/2022 Acute anterior epistaxis 01/28/2016 S/P nasal septoplasty 01/28/20162019 S/P functional endoscopic sinus surgery 01/28/2016 05/08/2020 Deviated septum 12/12/2015 05/08/2020 Nasal turbinate hypertrophy 01/23/2015 05/08/2020 documented as of this encounter (statuses as of 07/18/2024) Immunizations Name Administration Dates Next Due Seasonal [...] 09/05/2024 3:40 PM EST Nurse Only [address] [place] [address] Valerie, Nurse [facility] [address] [place] [address] 09/19/2024 1:00 PM EDT Office Visit Nutrition & Weight Management, [facility] [address] [place] [address] Ivon Rios CRNP [address] [place] [address] 06/23/2025 4:40 PM EST Office Visit Family Practice [address] [place] [address] Madi Pugh PA-C [address] [place] [address] Scheduled Orders Name Type Priority Associated Diagnoses Orde r Schedule MYCODE SUBSEQUENT ADULT Lab Routine [employer] Other*[id number] Every 6 Months for 2 Occurrences starting 07/18/2024 until 08/07/2025 Health Maintenance Due Date Last Done Comments [...] as of this encounter Visit Diagnoses Diagnosis [employer] Other*[id number] documented in this encounter Care Teams Gang Investigator Relationship Specialty Start Date End Date Krystle Garcia DO [facility] [facility] [place] [address] PCP - General Family Medicine 05/08/20 documented as of this encounter
--- OUTSIDE RECORDS SUMMARY | 2024-10-04 07:29 | External Medical Summary ---
Author Name Unknown Address Unknown Organization : Laboratory Report Ordering Provider Test Date Status ERIK FUENTES 07/12/2024 10:30:18 Final Observation Date Value Abnormality Reference (Units ) Status Mycobacterium tuberculosis stimulated gamma interferon [Interpretation] in Blood Qualitative 07/12/2024 10:30:18 NEGATIVE NEGATIVE Final Negative test result. M. tub erculosis complex
infection unlikely. Gamma interferon background [Units/volume] in Blood by Immunoassay 07/12/2024 10:30:18 0.04 (IU/mL) Final Mitogen stimulated gamma int erferon [Units/volume] corrected for background in Blood 07/12/2024 10:30:18 6.44 (IU/mL) Final Mycobacterium tuberculosis s timulated gamma interferon release by CD4+ T-cells [Units/volume] corrected for background in Blood 07/12/2024 10:30:18 0.01 (IU/mL) Final Mycobacterium tuberculosis s timulated gamma interferon release by CD4+ and CD8+ T-cells [Units/volume] corrected for background in Blood 07/12/2024 10:30:18 <0.00 (IU/mL) Final The Nil tube value reflects the background interferon
gamma immune response of the patient's blood sample.
This value has been subtracted from the patient's
displayed TB and Mitogen results.
Lower than expected results with the Mitogen tube
prevent false-negative Quantiferon readings by detect-
ing a patient with a potential immune suppressive
condition and/or suboptimal pre-analytical specimen
handling.
The TB1 Antigen tube is coated with the M.
tuberculosis-specific antigens designed to elicit
responses from TB antigen primed CD4+ helper
T-lymphocytes.
The TB2 Antigen tube is coated with the M.
tuberculosis-specific antigens designed to elicit
responses from TB antigen primed CD4+ helper and CD8+
cytotoxic T-lymphocytes.
For additional information, please refer to
http://education.[employer]/faq/IGA766
(This link is being provided for information/
educational purposes only.)

Test Performed at:
[facility]
[address] [facility]
[place] [address]
Koffi Tolliver M.D., Ph.D.,Director of Laboratories Performing Location
--- OUTSIDE RECORDS SUMMARY | 2024-10-04 07:29 | External Medical Summary | Summary of Care ---
Author Name Unknown Organization [facility] Address [address] [place] [address] Phone [phone] Care Team Providers Care Statistician Mathematical Name Role Phone Krystle Garcia DO Primary Care Provider +1- [phone] Encounter Details Date Type Department Care Team (Late st Contact Info) Description 09/23/2024 Telephone Family Practice [place] [facility] Levy [address] [place] [address] Mukul Wilkes PA-C [address] [place] [address] Allergies Active Allergy Reactions Criticality Noted [...] Zepbound 5 MG/0.5ML Subcutaneous Solution Auto-injector ([facility]) Inject 5 mg (1 pen) under the [...] No 06/21/2024 Are you (or your family) cralito eless or worried that you might be [...] 06/23/2025 4:40 PM EST Office Visit Family [facility] [address] [place] [address] Madi Pugh PA-C [address] [place] [address] Pending Results Name Type Priority Associated Diagnoses [...] available Ventricular Rate: 71 Atrial Rate: 71 [place] Interval: 134 QRS Duration: 78 QT/QTc: 426/462 ms P-R-T [place]: 53 : 4 : 18 degrees Mukul Wilkes PA-C EKG Final Result [facility] documented in this encounter Visit Diagnoses Diagnosis Palpitations- Primary Palpitations documented in this encounter Care Teams Statistician Mathematical Relationship Specialty Start Date End Date Krystle Garcia DO [address] [facility] [place] [address] PCP - General Family Medicine 05/08/20 documented as of this encounter
--- OUTSIDE RECORDS SUMMARY | 2024-10-04 07:29 | External Medical Summary | Summary of Care ---
Author Name Unknown Organization [facility] Address [address] [place] [address] Phone [phone] Care Team Providers Care Milking Worker Name Role Phone Krystle Garcia Primary Care Provider +1- [phone] Reason for Visit * Reason Comments Outpatient Testing Encounter Details Date Type Department Care Team ([facility] Contact Info) Description 07/12/2024 11:20 AM EST Laboratory Laboratory, [facility] [address] [place] [id number] [facility], Lab [address] [place], [place] [id number] [employer] Other*[id number]; General medical exam Allergies Active Allergy Reactions Criticality Noted Date Comments Meloxicam Edema face/lips/tongue High 10/20/2013 Hydrocodone-Acetaminophen Rash 10/20/2013 documented as of this encounter (statuses as of 07/12/2024) Medications * This document contains information received from the source organization and may not represent a complete record from that organization. 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 05/08/2020 12/05/2022 CHRIS (generalized anxiety disorder) 05/08/2020 12/05/2022 Acute anterior epistaxis 01/28/2016 S/P nasal septoplasty 01/28/20162019 S/P functional endoscopic sinus surgery 01/28/2016 05/08/2020 Deviated septum 12/12/2015 05/08/2020 Nasal turbinate hypertrophy 01/23/2015 05/08/2020 documented as of this encounter (statuses as of 07/12/2024) Immunizations Name Administration Dates Next Due Seasonal [...] 09/05/2024 3:40 PM EST Nurse Only Ancillary [place] Valerie Levy [address] [place] [address] Valerie, Fp [place] [address] [place] [address] 09/19/2024 1:00 PM EDT Office Visit Nutrition & Weight Management, [facility], Katie Wyman [address] [place] [address] [place] [address] Ivon Rios, JAMSHID [address] [place] [address] 06/23/2025 4:40 PM EST Office Visit Family [facility] Cam, Valerie [address] [place] [address] Madi Pugh PA-C [address] [place] [address] Pending Results Name Type Priority Associated Diagnoses Date /Time MYCODE INITIAL ADULT Lab Routine [employer] Other*[id number] 07/12/2024 10:30 AM EST MUMPS IGG ANTIBODY Lab Routine General medical exam 07/12/2024 10:30 AM EST RUBELLA IGG ANTIBODY Lab Routine General medical exam 07/12/2024 10:30 AM EST RUBEOLA (MEASLES) IGG ANTIBODY Lab Routine General medical exam 07/12/2024 10:30 AM EST VARICELLA-ZOSTER VIRUS ANTIBODY, IGG Lab Routine General medical exam 07/12/2024 10:30 AM EST QUANTIFERON TB GOLD PLUS Lab Routine General medical exam 07/12/2024 10:30 AM EST MYCODE INITIAL ADULT-PINK Lab Routine [employer] Other*[id number] 07/12/2024 10:30 AM EST MYCODE SST1 Lab Routine [employer] Other*[id number] 07/12/2024 10:30 AM EST MYCODE SST2 Lab Routine [employer] Other*[id number] 07/12/2024 10:30 AM EST Health Maintenance Due Date Last Done Comments [...] this encounter Visit Diagnoses Diagnosis [employer] Other*[id number] General medical exam Unspecified general medical examination documented in this encounter Care Teams Milking Worker Relationship Specialty Start Date End Date Krystle Garcia DO [address] [facility] [place] [address] PCP - General Family Medicine 05/08/20 documented as of this encounter
--- OUTSIDE RECORDS SUMMARY | 2024-10-04 07:29 | External Medical Summary ---
Author Name Unknown Address Unknown Organization K01:LABORATORY [facility] - [address] [place] [address] Laboratory Report Ordering Provider Test Date Status ERIK FUENTES 07/12/2024 10:30:18 Final Observation Date Value Abnormality Reference (Units ) Status Rubeola IgG 07/12/2024 10:30:18 Positive Abnormal Negative Final A positive result is consist ent with having had measles virus (rubeola) or vaccination. Performing Location [facility]ATORY [facility] - [address] [place] [address]
--- OUTSIDE RECORDS SUMMARY | 2024-10-04 07:29 | External Medical Summary ---
Author Name Unknown Address Unknown Organization K01:LABORATORY [facility] - [address] [place] [address] Laboratory Report Ordering Provider Test Date Status ERIK FUENTES 07/12/2024 10:30:18 Final Observation Date Value Abnormality Reference (Units ) Status Rubella virus IgG Ab [Presence] in Serum 07/12/2024 10:30:18 Positive Abnormal Negative Final A positive result is consist ent with having had rubella virus or vaccination. Performing Location LABORATORY [facility] - [address] [place] [address]
--- OUTSIDE RECORDS SUMMARY | 2024-10-04 07:29 | External Medical Summary ---
Author Name Unknown Address Unknown Organization K01:LABORATORY [facility] - [address] [place] [address] Laboratory Report Ordering Provider Test Date Status GILMAR ELIAS 07/12/2024 10:30:18 Final Observation Date Value Abnormality Reference (Units ) Status MYCODE SPECIMEN-SST 07/12/2024 10:30:18 Freezing of extracted DNA, whole blood and/or serum. Final Performing Location LABORATORY [facility] - [address] [place] [address]
--- OUTSIDE RECORDS SUMMARY | 2024-10-04 07:29 | External Medical Summary ---
Author Name Unknown Address Unknown Organization K01:LABORATORY [facility] - [address] [place] [address] [place] [address] Laboratory Report Ordering Provider Test Date Status GILMAR ELIAS 07/12/2024 10:30:18 Final Observation Date Value Abnormality Reference (Units ) Status MYCODE SPECIMEN-LAV 07/12/2024 10:30:18 Freezing of extracted DNA, whole blood and/or serum. Final Performing Location LABORATORY [facility] - [address] [place] [address]
--- OUTSIDE RECORDS SUMMARY | 2024-10-04 07:29 | External Medical Summary | Summary of Care ---
Author Name Unknown Organization [facility] Address [address] [facility] [place] [address] Phone [phone] Care Team Providers Care Roll Cutting Operator Name Role Phone GarciaAilinie Idalmis Primary Care Provider +1- [phone] Reason for Visit * Reason Comments Medication Refill Encounter Details Date Type Department Care Team (Late st Contact Info) Description 09/12/2024 Refill [address]ocr[address] [place] [address] Carmela Pinto PA-C [address] [place] [address] Allergies Active Allergy Reactions Criticality Noted Date Comments Meloxicam Edema face/lips/tongue High 10/20/2013 Hydrocodone-Acetaminophen Rash 10/20/2013 documented as of this encounter (statuses as of 09/12/2024) Medications Vitamin C 250 MG Vaginal Tablet Administer into the vagina. Active Digestive Health Probiotic Oral Capsule Take by mouth. Activ e Elderberry 500 MG Oral Capsule Take by mouth. Active predniSONE 10 MG Oral Tablet (Deltasone)Indic [...] Active Zepbound 5 MG/0.5ML Subcutaneous Solution Auto-injector (Tirzepatide-Garret ght Management) Inject 5 mg (1 pen) under the skin weekly 2 mL 5 Active Zepbound 5 MG/0.5ML Subcutaneous Solution Auto-injector (Tirzepatide-Garret ght Management) Inject 5 mg (1 pen) under the skin weekly 2 mL 08/18/2024 12:02 PM EST 5 025 Discontin ued(Refil l) documented as of this encounter (statuses as of 09/12/2024) Active Problems Problem Noted Date Diagnosed Date Rhinosinusitis 01/23/2015 documented as of this encounter (statuses as of 09/12/2024) Resolved Problems Problem Noted Date Diagnosed Date [...] as of this encounter (statuses as of 09/12/2024) Immunizations Name Administration Dates Next Due Seasonal [...] encounter Miscellaneous Notes * Telephone Encounter - Carmela Pinto PA-C - 09/12/2024 1:45 PM EST Signed Prescriptions: Disp Refills Zepbound 5 MG/0.5ML Subcutaneous Solution *2 mL 0 Sig: Inject 5 mg (1 pen) under the skin weeklyAuthorizing Provider: CARMELA PINTO documented in this encounter Plan of Treatment Upcoming Encounters Date Type Department Care Team (Late st Contact Info) Description 06/23/2025 4:40 PM EST Office [place] [address] [place] [address] Madi Pugh PA-C [address] [place] [address] Health Maintenance Due Date Last Done Comments [...] filedocumented as of this encounter Care Teams Roll Cutting Operator Relationship Specialty Start Date End Date Krystle Garcia DO [address] [facility] [place] [address] PCP - General Family Medicine 05/08/20 documented as of this encounter
--- OUTSIDE RECORDS SUMMARY | 2024-10-04 07:29 | External Medical Summary | Summary of Care ---
Author Name Unknown Organization [facility] Address [address] [place] [address] Phone [phone] Care Team Providers Care Commercial Reporter Name Role Phone Krystle Garcia DO Primary Care Provider +1- [phone] Reason for Visit * Reason Comments Acute Right shoulder pain for past 2 months, no specific injury, worsening, taking OTC pain meds and has tried heat and ice. Encounter Details Date Type Department Care Team (Late st Contact Info) Description 09/08/2024 10:00 AM EST Office Visit Family [facility] [place] Valerie Levy [address] [place] [address] Mukul Wilkes PA-C [address] [place] [address] Acute pain of right shoulder* Allergies Active [...] No 06/21/2024 Does the household have a [facility] source of income? (Household - for [...] Problem List Diagnosis Rhinosinusitis BMI 40.0-44.9, adult ([facility]) Review of patient's allergies indicates: Allergen [...] performed by Dyllan Benton MD at OR [facility] PARTIAL HYSTERECTOMY 09/2015 R ovary remains REMOVAL OF TURBINATE BONES Bilateral 01/15/2016 SUBMUCOUS RESECTION INFERIOR TURBINATE performed by Dyllan Benton MD at OR [facility] REPAIR OF NASAL SEPTUM N/A 01/15/2016 SEPTOPLASTY performed by Dyllan Benton MD at OR [facility] SHOULDER ARTHROSCOPY SURGERY 11/23 and 04/25 [...] Stability Do you currently live in a usp or have no steady place to sleep [...] supraspinatus and teres minor/subscapularis positive; infraspinatus negative; xflb-wq-lfpehtms tenderness to palpation over AC joint Neurological: [...] Wilkes PA-C - 09/08/2024 10:04 AM EST [id number] Shoulder Sprain A sprain is a stretching [...] or chills Last Reviewed Date: 2022 00:00:00 [id number] [employer]. All rights reserved. This information is not intended as a substitute for professional medical care. Always follow your healthcare professional's instructions. documented in this encounter Plan of Treatment Upcoming Encounters Date Type Department Care Team (Late st Contact Info) Description 06/23/2025 4:40 PM EST Office Visit Family Practice [address] [place] [address] Madi Pugh PA-C [address] [place] [address] Scheduled Orders Name Type Priority Associated Diagnoses [...] Primary documented in this encounter Care Teams Commercial Reporter Relationship Specialty Start Date End Date Krystle Garcia DO [address] [facility] [place] [address] PCP - General Family Medicine 05/08/20 documented as of this encounter"
--- OUTSIDE RECORDS SUMMARY | 2024-10-04 07:29 | External Medical Summary | Summary of Care ---
Author Name Unknown Organization [facility] Address [address] [place] [address] Phone [phone] Care Team Providers Care Hose Sprayer Name Role Phone Jose Krystle Idalmis Primary Care Provider +1- [phone] Encounter Details Date Type Department Care Team (Late st Contact Info) Description 08/15/2024 Population Health External Data Unspecified Department Allergies Active Allergy Reactions Criticality Noted Date Comments Meloxicam Edema face/lips/tongue High 10/20/2013 Hydrocodone-Acetaminophen Rash 10/20/2013 documented as of this encounter (statuses as of 08/15/2024) Medications Zepbound 5 MG/0.5ML Subcutaneous Solution Auto-injector (Tirzepatide-[facility] ht Management) Inject 5 mg (1 pen) under the skin weekly 2 mL 07/20/2024 3:03 PM EST 06/30/2024 Active documented as of this encounter (statuses as of 08/15/2024) Active Problems Problem Noted Date Diagnosed Date BMI 40.0-44.9, adult 12/25/2020 Overview: Per Obesity protocol Rhinosinusitis 01/23/2015 documented as of this encounter (statuses as of 08/15/2024) Resolved Problems Problem Noted Date Diagnosed Date Resolved Date 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 05/08/2020 12/05/2022 CHRIS (generalized anxiety disorder) 05/08/2020 12/05/2022 Acute anterior epistaxis 01/28/2016 S/P nasal septoplasty 01/28/20162019 S/P functional endoscopic sinus surgery 01/28/2016 05/08/2020 Deviated septum 12/12/2015 05/08/2020 Nasal turbinate hypertrophy 01/23/2015 05/08/2020 documented as of this encounter (statuses as of 08/15/2024) Immunizations Name Administration Dates Next Due Seasonal [...] 09/05/2024 3:40 PM EST Nurse Only Ancillary [address] [place] [address] Valerie, Nurse Fp [address] [place] [address] 09/19/2024 1:00 PM EDT Office Visit Nutrition & Weight Management, [facility] [address] [place] [address] Ivon Rios CRNP [address] [place] [address] 06/23/2025 4:40 PM EST Office Visit Family Practice [address] [place] [address] Madi Pugh PA-C [address] [place] [address] Health Maintenance Due Date Last Done Comments [...] filedocumented as of this encounter Care Teams Hose Sprayer Relationship Specialty Start Date End Date Krystle Garcia DO [address] [facility] [place] [address] PCP - General Family Medicine 05/08/20 documented as of this encounter
--- OUTSIDE RECORDS SUMMARY | 2024-10-04 07:29 | External Medical Summary ---
Author Name Unknown Address Unknown Organization K01:LABORATORY [facility] - [address] [place] [address] Laboratory Report Ordering Provider Test Date Status ERIK FUENTES 07/12/2024 10:30:18 Final Observation Date Value Abnormality Reference (Units ) Status Mumps virus IgG Ab [Presence] in Serum by Immunoassay 07/12/2024 10:30:18 Negative Negative Final A negative result indicates that immunity to mumps virus has not been acquired. Performing Location LABORATORY [facility] - [address] [place] [address]
--- OUTSIDE RECORDS SUMMARY | 2024-10-04 07:29 | External Medical Summary | Summary of Care ---
Author Name Unknown Organization [facility] Address [address] [place] [address] Phone [phone] Care Team Providers Care Line Construction Superintendent Name Role Phone Jose Krystle Raygoza Primary Care Provider +1- [phone] Reason for Visit * Reason Onset Date Comments Precert Approved 05/05/2024 Zepbound Encounter Details Date Type Department Care Team (Late st Contact Info) Description 05/05/2024 Telephone Nutrition & Weight Management, [facility] [address] [place] [address] Carmela Pinto PA-C [address] [place] [address] Precert Approved (Zepbound) Allergies Active Allergy Reactions Criticality Noted Date Comments Meloxicam Edema face/lips/tongue High 10/20/2013 Hydrocodone-Acetaminophen Rash 10/20/2013 documented as of this encounter (statuses as of 08/04/2024) Medications No known medicationsdocumented as of this encounter (statuses as of 08/04/2024) Active Problems Problem Noted Date Diagnosed Date BMI 40.0-44.9, adult 12/25/2020 Overview: Per Obesity protocol Rhinosinusitis 01/23/2015 documented as of this encounter (statuses as of 08/04/2024) Resolved Problems Problem Noted Date Diagnosed Date Resolved Date 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 (Household - for ages [...] encounter Miscellaneous Notes * Telephone Encounter - Marquez Hayward orthotics prosthetics assistant - 05/05/2024 10:24 AM EDT New or re-auth: new Patient Rhiannon Andres needs a prior authorization for a medication through their [employer] insurance. Medication: Zepbound Formulation: 2.5mg/0.5mL prefilled pen Dosage: 2mL for 28ds ID: [id number] [id number] PCN:[id number] Target ship date is n/a. Thank you very much, Liz Hayward Manager Mortgage, [facility] 05/05/2024 10:25 AM documented in this encounter Plan of Treatment Upcoming Encounters Date Type Department Care Team (Late st Contact Info) Description 09/05/2024 3:40 PM EST Nurse Only Ancillary [place] Valerie Levy [address] [place] [address] Valerie Nurse [place] [address] [place] [address] 09/19/2024 1:00 PM EDT Office Visit Nutrition & Weight Management, [facility], [place] [address] [place] [address] [place] [address] Ivon Rios, PV INSTALLER TECH [address] [place] [address] 06/23/2025 4:40 PM EST Office Visit Family Practice [place] Valerie Levy [address] [place] [address] Madi Pugh PA-C [address] [place] [address] Health Maintenance Due Date Last Done Comments [...] filedocumented as of this encounter Care Teams Line Construction Superintendent Relationship Specialty Start Date End Date Krystle Garcia DO [address] [place] [address] PCP - General Family Medicine 05/08/20 documented as of this encounter
--- OUTSIDE RECORDS SUMMARY | 2024-10-04 07:29 | External Medical Summary | Summary of Care ---
Author Name Unknown Organization [facility] Address [address] [place] [address] Phone [phone] Care Team Providers Care Investment Officer Name Role Phone Krystle Garcia DO Primary Care Provider +1- [phone] Encounter Details Date Type Department Care Team (Late st Contact Info) Description 09/23/2024 Telephone Family Practice [place] Valerie Levy [address] [place] [address] Mukul Wilkes PA-C [address] [place] [address] Allergies Active Allergy Reactions Criticality Noted [...] Zepbound 5 MG/0.5ML Subcutaneous Solution Auto-injector ([facility]) Inject 5 mg (1 pen) under [...] 06/23/2025 4:40 PM EST Office Visit Family [facility] [address] [place] [address] Madi Pugh PA-C [address] [place] [address] Pending Results Name Type Priority Associated Diagnoses Date /Time TSH WITH FREE T4 IF INDICATED Lab Routine Palpitations 09/23/2024 1:47 PM EDT Scheduled Orders Name Type Priority Associated Diagnoses Orde r Schedule EKG EKG Routine Palpitations Expected: 09/23/2024, Expires: 10/23/2025 TSH WITH FREE T4 IF INDICATED Lab [...] as of this encounter Visit Diagnoses Diagnosis Palpitations- Primary documented in this encounter Care Teams Investment Officer Relationship Specialty Start Date End Date Krystle Garcia DO [address] [facility] [place] [address] PCP - General Family Medicine 05/08/20 documented as of this encounter
--- OUTSIDE RECORDS SUMMARY | 2024-10-04 07:29 | External Medical Summary ---
Author Name Unknown Address Unknown Organization K01:[facility] [address] [place] [address] Laboratory Report Ordering Provider Test Date Status GILMAR ELIAS 07/12/2024 10:30:18 Final Observation Date Value Abnormality Reference (Units ) Status MYCODE SPECIMEN-SST 07/12/2024 10:30:18 Freezing of extracted DNA, whole blood and/or serum. Final Performing Location LABORATORY C - [address] [place] [address]
--- OUTSIDE RECORDS SUMMARY | 2024-10-04 07:29 | External Medical Summary | Summary of Care ---
Author Name Unknown Organization [facility] Address [address] [facility] [place] [address] Phone [phone] Care Team Providers Care Advertising Statistical Clerk Name Role Phone Jose Krystle Idalmis Primary Care Provider +1- [phone] Reason for Visit * Reason Comments Medication Refill Encounter Details Date Type Department Care Team (Late st Contact Info) Description 08/12/2024 [address]ill [address]ocr[address] [place] [address] Madeleine Wright PA-C [address] [place] [address] Allergies Active Allergy Reactions Criticality Noted Date Comments Meloxicam Edema face/lips/tongue High 10/20/2013 Hydrocodone-Acetaminophen Rash 10/20/2013 documented as of this encounter (statuses as of 08/17/2024) Medications Zepbound 5 MG/0.5ML Subcutaneous Solution Auto-injector (Tirzepatide-Weig ht Management) Inject 5 mg (1 pen) under the skin weekly 2 mL 5 Active Zepbound 5 MG/0.5ML Subcutaneous Solution Auto-injector (Tirzepatide-Weig ht Management) Inject 5 mg (1 pen) under the skin weekly 2 mL 07/20/2024 3:03 PM EST 4 08/12/19 25 Discontinu ed(Refill) documented as of this encounter (statuses as of 08/17/2024) Active Problems Problem Noted Date Diagnosed Date BMI 40.0-44.9, adult 12/25/2020 Overview: Per Obesity protocol Rhinosinusitis 01/23/2015 documented as of this encounter (statuses as of 08/17/2024) Resolved Problems Problem Noted Date Diagnosed Date Resolved Date 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 (Household - for ages [...] Telephone Encounter - Carmela Pinto PA-C - 08/16/2024 2:39 PM EST Signed Prescriptions: Disp Refills Zepbound 5 MG/0.5ML Subcutaneous Solution *2 mL 0 Sig: Inject 5 mg (1 pen) under the skin weekly Authorizing Provider: CARMELA PINTO * Telephone Encounter - Madeleine Wright PA-C - 08/16/2024 1:22 PM ESTPending Prescriptions: Disp Refills Zepbound 5 MG/0.5ML Subcutaneous Solution *2 mL 0 Sig: Inject 5 mg (1 pen) under the skin weekly * Telephone Encounter - Taylor Dior CMA - 08/16/2024 1:21 PM ESTPending Prescriptions: Disp Refills Zepbound 5 MG/0.5ML Subcutaneous Solution *2 mL 0 Sig: Inject 5mg (1 pen) under the skin weekly documented in this encounter Plan of Treatment Upcoming Encounters Date Type Department Care Team (Late st Contact Info) Description 09/05/2024 3:40 PM EST Nurse Only Ancillary [place], Valerie [address] [place] [address] Valerie, Nurse Fp [address] [place] [address] 09/19/2024 1:00 PM EDT Office Visit Nutrition & Weight Management, [address] [place] [address] Ivon Rios, JAMSHID [address] [place] [address] 06/23/2025 4:40 PM EST Office Visit Family Practice [address] [place] [address] Madi Pugh PA-C [address] [place] [address] Health Maintenance Due Date Last Done Comments [...] filedocumented as of this encounter Care Teams Advertising Statistical Clerk Relationship Specialty Start Date End Date Krystle Garcia DO [address] [place] [address] PCP - General Family Medicine 05/08/20 documented as of this encounter
--- OUTSIDE RECORDS SUMMARY | 2024-10-04 07:29 | External Medical Summary ---
Author Name Unknown Address Unknown Organization [id number]:LABORATORY [facility] [place] [facility] [address] [facility] [address] Laboratory Report Ordering Provider Test Date Status KAVIN NORMAN 09/23/2024 13:47:34 Final Observation Date Value Abnormality Reference (Units ) Status TSH 09/23/2024 13:47:34 1.19 0.27-4.20 (uIU/mL) Final Performing Location [facility] [address] [facility] [address]
--- OUTSIDE RECORDS SUMMARY | 2024-10-04 07:29 | External Medical Summary ---
Author Name Unknown Address Unknown Organization [id number]:[place]ORY [facility] [place] [address] [place] [address] Laboratory Report Ordering Provider Test Date Status ERIK FUENTES 07/12/2024 10:30:18 Final Observation Date Value Abnormality Reference (Units ) Status Varicella Zoster IgG interpretation 07/12/2024 10:30:18 Positive Abnormal Negative Final A positive result is consist ent with having had varicella zoster virus or vaccination. Performing Location [facility] [facility] [place] [address] [place] [address]
--- OUTSIDE RECORDS SUMMARY | 2024-10-04 07:30 | External Medical Summary | Summary of Care ---
Author Name Unknown Organization [facility] Address [address] [place] [address] Phone [phone] Care Team Providers Care Crm Dynamics Developer Name Role Phone Krystle Garcia DO Primary Care Provider +1- [phone] Reason for Visit * Reason Comments Follow Up Dosage Adjustment Via Phone (anticoag Cl inic) Encounter Details Date Type Department Care Team ([facility] st Contact Info) Description 12/31/2023 3:40 PM EDT Telemedicine Endocrinology, [place] [address] [place], [place] [id number] [place], Pharmacist Endocrinology [address] [place] [address] Class 3 severe obesity due to excess calories without serious comorbidity with body mass index (BMI) of 40.0 to 44.9 in adult (HCC)* Allergies Active Allergy Reactions Criticality Noted Date Comments Meloxicam Edema face/lips/tongue High 10/20/2013 Hydrocodone-Acetaminophen Rash 10/20/2013 documented as of this encounter (statuses as of 06/29/2024) Medications Ozempic (0.25 or 0.5 MG/DOSE) 2 MG/3ML Solution Pen-injector (Semaglutide(0 .25 or 0.5MG/DOS)) Inject 0.25mg under the skin once weekly for 4 weeks then increase to 0.5mg under the skin once weekly thereafter 3 mL 05/28/202 4 2:06 PM EDT 12/01/19 24 024 Discontinued(Me dication List Clean Up) Ozempic (0.25 or 0.5 MG/DOSE) 2 MG/3ML Solution Pen-injector (Semaglutide(0 .25 or 0.5MG/DOS)) Inject 0.5 mg under the skin once a week. 15 mL 12/03/19 24 024 Discontinued(Me dication List Clean Up) Ozempic (0.25 or 0.5 MG/DOSE) 2 MG/3ML Solution Pen-injector (Semaglutide(0 .25 or 0.5MG/DOS))Ind ications:Class 3 severe obesity due to excess calories without serious comorbidity with body mass index (BMI) of 40.0 to 44.9 in adult (HCC) Inject 0.5 mg under the skin once a week. 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 05/08/2020 12/05/2022 CHRIS (generalized anxiety disorder) 05/08/2020 12/05/2022 Acute anterior epistaxis 01/28/2016 S/P nasal septoplasty 01/28/20162019 S/P functional endoscopic sinus surgery 01/28/2016 05/08/2020 Deviated septum 12/12/2015 05/08/2020 Nasal turbinate hypertrophy 01/23/2015 05/08/2020 documented as of this encounter (statuses as of 06/29/2024) Immunizations Name Administration Dates Next Due Seasonal [...] AM EST documented as of this encounter Progress Notes * Elisha Coats RPh - 12/31/2023 2:43 PM EDT GLP-1 Medication Therapy Status Check After connecting to the patient via telephone, the patient was identified by name and date of . Patient was then informed that this was a telephone call only visit. The patient agreed to participate Visit Disposition: Status check Duration: 6 minutes Name: Rhiannon Andres Diagnosis: Obesity Current GLP1 therapy: Ozempic 0.25mg weekly (); taking fourth dose today then plans to increase to 0.5mg weekly OBJECTIVE Estimated body mass index is 39.03 kg/m as calculated from the following: Height as of 12/05/22: 1.537 m (5' 0.5"). Weight as of 12/05/22: 92.2 kg (203 lb 3.2 oz). BP Readings from Last 3 Encounters: 12/05/22 118/70 04/07/22 116/68 09/23/21 118/74 Hemoglobin AIC Results: No results found for: "HEMOGLOBIN A1C" No results found for: "MICROALBUMIN" MEDICATION USE ASSESSMENT Patient is adherent to current prescribed dose of GLP1 therapy? Yes, patient taking as prescribed Allergic / Local Reactions Reported: No Side Effects Reported: Nausea; patient reports tolerable Headache; patient reports tolerable PLAN The patient was educated on when to contact provider with change of symptoms or tolerability to medication. Continue medication as prescribed. Elisha Coats RPh Clinical Pharmacist Medication Therapy Disease Management 12/31/2023,2:43 PM documented in this encounter Plan of Treatment Upcoming Encounters Date Type Department Care Team (Late st Contact Info) Description 09/05/2024 3:40 PM EST Nurse Only Ancillary [address], [place] [address] [place] [address] Nurse Valerie [address] [place] [address] 09/19/2024 1:00 PM EDT Office Visit Nutrition & Weight Management, [facility], [place] Zamzam [address] [place] [address] [place] [address] Ivon Rios, [facility] [address] [place] [address] 06/23/2025 4:40 PM EST Office Visit Family Practice [address], Valerie [address] [place] [address] Madi Pugh PA-C [address] [place] [address] Health Maintenance Due Date Last Done Comments [...] as of this encounter Visit Diagnoses Diagnosis Class 3 severe obesity due to excess calories without serious comorbidity with body mass index (BMI) of 40.0 to 44.9 in adult (HCC)- Primary documented in this encounter Care Teams Crm Dynamics Developer Relationship Specialty Start Date End Date Krystle Garcia DO [address] [facility] [place] [address] PCP - General Family Medicine 05/08/20 documented as of this encounter
--- OUTSIDE RECORDS SUMMARY | 2024-10-04 07:30 | External Medical Summary ---
Author Name Unknown Address Unknown Organization K01:LABORATORY [facility] [place] - [address] [place] [address] Laboratory Report Ordering Provider Test Date Status SUJIT AYOUB 06/21/2024 11:33:24 Final Observation Date Value Abnormality Reference (Units ) Status WBC, Total 06/21/2024 11:33:24 6.02 4.00-10.80 (K/uL) Final RBC 06/21/2024 11:33:24 4.90 3.85-5.15 (M/uL) Final Hemoglobin 06/21/2024 11:33:24 14.1 12.0-15.3 (g/dL) Final HCT 06/21/2024 11:33:24 44.1 36.0-45.2 (%) Final MCV 06/21/2024 11:33:24 90.0 81.5-97.5 (fL) Final MCH 06/21/2024 11:33:24 28.8 27.0-34.0 (pg) Final MCHC 06/21/2024 11:33:24 32.0 32.0-36.0 (g/dL) Final RDW 06/21/2024 11:33:24 12.2 11.5-15.5 (%) Final Platelets 06/21/2024 11:33:24 227 140-400 (K/uL) Final MPV 06/21/2024 11:33:24 11.6 6.6-11.1 (fL) Final Nucleated erythrocytes/100 leukocytes [Ratio] in Blood by Automated count 06/21/2024 11:33:24 0 <=0 (/100 WBCs) Final Performing Location LABORATORY [facility] [place] - [address] [place] [address]
--- OUTSIDE RECORDS SUMMARY | 2024-10-04 07:30 | External Medical Summary ---
Author Name Unknown Address Unknown Organization K01:LAB[facility]ATORY [facility] [place] [facility] [address] [facility] [address] Laboratory Report Ordering Provider Test Date Status SUJIT AYOUB 06/21/2024 11:33:24 Final Observation Date Value Abnormality Reference (Units ) Status Iron 06/21/2024 11:33:24 93 33-151 (ug /dL) Final Iron-binding capacity 06/21/2024 11:33:24 260 250-425 (ug/dL) Final Transferrin Sat % 06/21/2024 11:33:24 36 15 -55 (%) Final Performing Location LABORATORY [facility] [place] - [address] [place] [address]
--- OUTSIDE RECORDS SUMMARY | 2024-10-04 07:30 | External Medical Summary ---
Author Name Unknown Address Unknown Organization K01:[place]ORY [facility] [place] [address] [place] [address] Laboratory Report Ordering Provider Test Date Status SUJIT AYOUB 06/21/2024 11:33:24 Final Observation Date Value Abnormality Reference (Units ) Status HbA1C 06/21/2024 11:33:24 5.0 4.0-5.6 (% ) Final The use of HbA1c to monitor glycemic status is based on normal hemoglobin and HbA composition. This test should not be used in patients with abnormal hemoglobin that affects the half life of the red blood cell or the in vivo glycation rates. Glucose, estimated average 06/21/2024 11:33:24 97 <126 (mg/dL) Final Performing Location LAB[facility]ORY [facility] [place] [address] [place] [address]
--- OUTSIDE RECORDS SUMMARY | 2024-10-04 07:30 | External Medical Summary ---
Author Name Unknown Address Unknown Organization K01:LABORATORY [facility] [place] - [address] [place] [address] Laboratory Report Ordering Provider Test Date Status SUJIT AYOUB 06/21/2024 11:33:24 Final Observation Date Value Abnormality Reference (Units ) Status BUN 06/21/2024 11:33:24 12 6-20 (mg/dL) Final Creatinine 06/21/2024 11:33:24 0.7 0.5-1.0 (mg/dL) Final Glomerular filtration rate/1.73 sq M.predicted [Volume Rate/Area] in Serum, Plasma or Blood by Creatinine-based formula (CKD-EPI) 06/21/2024 11:33:24 >90 >=60 (mL/min) Final eGFR is calculated based on the CKD-EPI 2020 equation. Sodium 06/21/2024 11:33:24 140 135-146 (m mol/L) Final Potassium 06/21/2024 11:33:24 4.1 3.5-5.1 (m mol/L) Final Cl 06/21/2024 11:33:24 104 98-107 (mm ol/L) Final CO2 06/21/2024 11:33:24 23 22-32 (mmo l/L) Final Anion gap 06/21/2024 11:33:24 13 7-15 (mmol /L) Final Glucose 06/21/2024 11:33:24 85 70-120 (mg /dL) Final Albumin 06/21/2024 11:33:24 4.5 3.8-5.0 (g /dL) Final AST (Aspartate aminotransferase) 06/21/2024 11:33:24 16 10-35 (U/L) Final Alk Phos 06/21/2024 11:33:24 59 35-130 (U/ L) Final Bilirubin, Total 06/21/2024 11:33:24 0.4 <=1 .2 (mg/dL) Final Calcium 06/21/2024 11:33:24 9.2 8.4-10.2 ( mg/dL) Final Protein 06/21/2024 11:33:24 6.6 6.0-8.3 (g /dL) Final ALT (Alanine aminotransferase) 06/21/2024 11:33:24 13 10-35 (U/L) Final Performing Location LABORATORY [facility] [place] - [facility] [address] [facility] [address]
--- OUTSIDE RECORDS SUMMARY | 2024-10-04 07:30 | External Medical Summary | Summary of Care ---
Author Name Unknown Organization [facility] Address [address] [place] [address] Phone [phone] Care Team Providers Care Minister Of Religion Name Role Phone Krystle Garcia DO Primary Care Provider +1- [phone] Reason for Visit * Reason Comments Follow Up Rhiannon Andres is a 38 year old female who presents today for follow up weight check for GI Nutrition. She would like to have some routine lab completed. Encounter Details Date Type Department Care Team (Late st Contact Info) Description 06/21/2024 11:20 AM EST Office Visit Family [facility] Valerie Levy [address] [place] [address] Madi [facility]ugh [facility]-C [address] [facility] [address] Other fatigue*; BMI 40.0-44.9, adult (HCC); Weight gain Allergies Active Allergy Reactions Criticality Noted Date Comments Meloxicam Edema face/lips/tongue High 10/20/2013 Hydrocodone-Acetaminophen Rash 10/20/2013 documented as of this encounter (statuses as of 06/21/2024) Medications Zepbound 5 MG/0.5ML Subcutaneous Solution Auto-injector (Tirzepatide-Weig ht Management) Inject 5 mg (1 pen) under the skin weekly 2 mL 06/20/2024 Active documented as of this encounter (statuses as of 06/21/2024) Active Problems Problem Noted Date Diagnosed Date BMI 40.0-44.9, adult 12/25/2020 Overview: Per Obesity protocol Rhinosinusitis 01/23/2015 documented as of this encounter (statuses as of 06/21/2024) Resolved Problems Problem Noted Date Diagnosed Date Resolved Date 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 05/08/2020 12/05/2022 CHRIS (generalized anxiety disorder) 05/08/2020 12/05/2022 Acute anterior epistaxis 01/28/2016 S/P nasal septoplasty 01/28/20162019 S/P functional endoscopic sinus surgery 01/28/2016 05/08/2020 Deviated septum 12/12/2015 05/08/2020 Nasal turbinate hypertrophy 01/23/2015 05/08/2020 documented as of this encounter (statuses as of 06/21/2024) Immunizations Name Administration Dates Next Due Seasonal Influenza Virus Vac cine, Unspecified Formulation 04/21/2019,05/04/2018 TDAP (age 10 and older)(Boostrix) 06/16/2019 documented as of this encounter Social History Tobacco Use Types Packs/Day Years Used Date Smoking Tobacco: Never Smokeless Tobacco: Never Alcohol Use Standard Drinks/Week Comments No 0 (1 standard drink = 0.6 oz pur e alcohol) PHQ-2 Answer Date Recorded PHQ-2 Score 2 05/08/2020 Hunger Vital Sign Answer Date Recorded Worried About Running Out of Food in the Last Ye ar Never true 05/08/2020 Ran Out of Food in the Last Year Never true 05/08/2020 Comments No Sex and Gender Information Value Date Recorded Sex Assigned at Female 06/21/2024 11:08 AM EST Legal Sex Female 5:39 AM EST Gender Identity Female 06/21/2024 11:08 AM EST Sexual Orientation Straight 06/21/2024 11 :08 AM EST documented as of this encounter Last Filed Vital Signs Vital Sign Reading Time Taken Comments Blood Pressure 122/76 06/21/2024 11:12 AM EST Pulse 74 06/21/2024 11:12 AM EST Temperature 36.8 C (98.3 F) 06/21/2024 11:[address] Respiratory Rate 20 06/21/2024 11:12 AM EST Oxygen Saturation 98% 06/21/2024 11:12 AM EST Inhaled Oxygen Concentration - - Weight 97.3 kg (214 lb 9.6 oz) 06/21/2024 11:12 AM EST Height 153.7 cm (5' 0.5") 06/21/2024 11:12 AM ES T Body Mass Index 41.22 06/21/2024 11:12 AM EST documented in this encounter Nursing Notes * Ktay Benjamin LPN - 06/21/2024 11:11 AM EST Chief Complaint Patient presents with Follow Up Rhiannon Andres is a 38 year old female who presents today for follow up weight check for GI Nutrition.She would like to have some routine lab completed. documented in this encounter Plan of Treatment Upcoming Encounters Date Type Department Care Team (Late st Contact Info) Description 06/21/2024 12:00 PM EST Laboratory Laboratory [address] Valerie Levy [address] [place] [phone] Valerie, Lab [address] [place] [address] Other fatigue; Weight gain 09/05/2024 3:40 PM EST Nurse Only Ancillary [address], [place] [address] [place] [address] Valerie, Nurse [address] [place] [address] 09/19/2024 1:00 PM EDT Office Visit Nutrition & Weight Management, [facility], Katie Wyman [address] [place] [address] [place] [address] Ivon Rios, JAMSHID [address] [place] [address] 06/23/2025 4:40 PM EST Office Visit Family Practice [place] Valerie Levy [address] [place] [address] Madi Pugh PA-C [address] [place] [address] Pending Results Name Type Priority Associated Diagnoses Date /Time COMPREHENSIVE METABOLIC PANEL Lab Routine Other fatigue Weight gain 06/21/2024 11:33 AM EST LIPID PANEL WITH DIRECT LDL IF TG IS HIGH Lab Routine Other fatigue Weight gain 06/21/2024 11:33 AM EST CBC WITH WBC DIFFERENTIAL Lab Routine Other fatigue Weight gain 06/21/2024 11:33 AM EST IRON SCREEN, INCLUDING TIBC Lab Routine Other fatigue Weight gain 06/21/2024 11:33 AM EST HEMOGLOBIN A1C Lab Routine Other fatigue Weight gain 06/21/2024 11:33 AM EST Scheduled Orders Name Type Priority Associated Diagnoses Orde r Schedule COMPREHENSIVE METABOLIC PANEL Lab Routine Other fatigue Weight gain Expected: 06/21/2024 (Approximate), Expires: 06/21/2025 LIPID PANEL WITH DIRECT LDL IF TG IS HIGH Lab Routine Other fatigue Weight gain Expected: 06/21/2024, Expires: 06/21/2025 CBC WITH WBC DIFFERENTIAL Lab Routine Other fatigue Weight gain Expected: 06/21/2024 (Approximate), Expires: 06/21/2025 IRON SCREEN, INCLUDING TIBC Lab Routine Other fatigue Weight gain Expected: 06/21/2024 (Approximate), Expires: 06/21/2025 HEMOGLOBIN A1C Lab Routine Other fatigue Weight gain Expected: 06/21/2024 (Approximate), Expires: 06/21/2025 Health Maintenance Due Date Last Done Comments HIV Screening 12/23/1999 Hepatitis C Screening 2002 Hepatitis B Vaccine (1 of 3 - 19+ 3-dose series) 12/23/2003 COVID-19 Vaccine (2023-2 5 season) 2024 Influenza Vaccine (FLU shot) (#1) 2024 04/21/2019, 05/04/2018 Diabetes Screening 04/09/2025 04/09/2022, 12/31/2015 Depression Screening 06/21/2025 06/21/2024, 05/08/2020 DTap/Tdap Vaccines (2 - Td o r Tdap) 06/16/2029 06/16/2019 Pap Smear Discontinued 10/20/2013 [...] as of this encounter Visit Diagnoses Diagnosis Other fatigue- Primary BMI 40.0-44.9, adult (HCC) Body Mass Index 40.0-44.9, adult Weight gain Abnormal weight gain Other fatigue Weight gain Abnormal weight gain documented in this encounter Care Teams Minister Of Religion Relationship Specialty Start Date End Date Krystle Garcia DO [address] [facility] [place] [place] [address] PCP - General Family Medicine 05/08/20 documented as of this encounter
--- OUTSIDE RECORDS SUMMARY | 2024-10-04 07:30 | External Medical Summary | Summary of Care ---
Author Name Unknown Organization [facility] Address [address] [place] [address] Phone [phone] Care Team Providers Care Stem Crusher Name Role Phone JoseKrystlealeida LOMELI Primary Care Provider +1- [phone] Encounter Details Date Type Department Care Team (Late st Contact Info) Description 05/04/2024 1:20 PM EDT Telemedicine Nutrition & Weight Management, [facility] [address] [place] [address] Carmela Pinto PA-C [address] [place] [address] Class 3 severe obesity due to excess calories without serious comorbidity with body mass index (BMI) of 40.0 to 44.9 in adult (HCC)* Allergies Active Allergy Reactions Criticality Noted Date Comments Meloxicam Edema face/lips/tongue High 10/20/2013 Hydrocodone-Acetaminophen Rash 10/20/2013 documented as of this encounter (statuses as of 05/04/2024) Medications Medication Sig Dispensed Refills Start Date End Date Status Zepbound 2.5 MG/0.5ML Subcutaneous Solution Auto-injector (Tirzepatide-Weight Management)Indicati ons:Class 3 severe obesity due to excess calories without serious comorbidity with body mass index (BMI) of 40.0 to 44.9 in adult (HCC) Inject 2.5 mg under the skin once a week. 2 mL 2 05/04/2024 Active Ozempic (0.25 or 0.5 MG/DOSE) 2 MG/3ML Solution Pen-injector (Semaglutide(0.25 or 0.5MG/DOS))Indicati ons:Class 3 severe obesity due to excess calories without serious comorbidity with body mass index (BMI) of 40.0 to 44.9 in adult (HCC) Inject 0.5 mg under the skin once a week. 3 mL 4 12/31/2023 05/04/2024 Discontinued documented as of this encounter (statuses as of 05/04/2024) Active Problems Problem Noted Date Diagnosed Date Rhinosinusitis 01/23/2015 documented as of this encounter (statuses as of 05/04/2024) Resolved Problems Problem Noted Date Diagnosed Date Resolved Date Body mass index (BMI) of 40. 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 (Adult - for ages 18 years and over) Not on file 12/29/2023 Is your family able to pay t he heat, water, or electric bill? (Household - for ages 0-17 years) Not on file 12/29/2023 Does your family have access to good internet? (Household - for ages 0-17 years) Not on file 12/29/2023 Social Connections Answer Date Recorded How often do you feel lonely or isolated from those around you? (Adult - for ages 18 years and over) Not on file 12/29/2023 Sex and Gender Information Value Date Recorded Sex Assigned at Not on file Gender Identity Not on file Sexual Orientation Not on file Job Start Date Occupation Industry Not on file Not on file Not on file documented as of this encounter Progress Notes * Carmela Pinto PA-C - 05/04/2024 1:28 PM EDT [facility] Note Patient location: HOME. I was in a hospital or clinic location. After connecting through Localoideo,patient was verified with two unique identifiers. Patient (or authorized legal auto claim representative) was then informed that this was a Telemedicine visit and being conducted confidentially over secure lines. Methods to assure confidentiality were taken. Patient acknowledged consent and understanding of pr ivacy and security of the Telemedicine visit. The patient agreed to participate. There are no exam notes on file for this visit. Rhiannon Andres presents in follow up to the comprehensive weight management clinic. The patient is a 38 year old female Wt Readings from Last 6 Encounters: 12/05/22 92.2 kg (203 lb 3.2 oz) 04/07/22 101.5 kg (223 lb 12.8 oz) 09/23/21 102.7 kg (226 lb 6.4 oz) 03/27/21 105.3 kg (232 lb 3.2 oz) 12/12/20 104.1 kg (229 lb 9.6 oz) 05/08/20 103.3 kg (227 lb 12.8 oz) Patient is receiving ongoing education regarding dietary and physical modifications for weight loss. - Initial clinic visit 06/20/22. Weight 221 lbs Height 60.5" - Today's weight: 210 lbs - Total weight loss of -11lbs since initial weight in clinic - Last visit was 12/01/23. Patient's weight has +8lbs since last visit 05/04/24 -last dose Ozempic was in 12/01/23 -off AOM - didn't respond to wellbutrin/naltrexone 06/15/23 -was on Wegovy 2.4mg - felt flu like - tried for 3 months -was on Wegovy 1.7mg and feeling well then was off d/t PA issue and supply - wants to get back on 10/09/22 -on Wegovy 1mg -had some constipation related to tramadol - has resolved -had plantar fasciitis surgery - recovering well 08/12/22 -on Wegovy 0.25mg -tolerating well, mild headache 1 hour or so after injections Today's Visit 06/20/22 - Overall goal: be healthier - Wt hx: has always had to watch her intake, worse since hysterectomy - Highest wt as adult: 209lbs - Lowest wt as adult: 150-155lbs - Barriers: schedule Patient Active Problem List Diagnosis Rhinosinusitis Review of Systems: Review of Systems Gastrointestinal: Negative for abdominal pain, constipation, diarrhea, nausea and vomiting. All other systems reviewed and are negative. Current Medications: Current Outpatient Medications Medication Sig Dispense Refill Ozempic (0.25 or 0.5 MG/DOSE) 2 MG/3ML Solution Pen-injector (Semaglutide(0.25 or 0.5MG/DOS)) Inject 0.5 mg under the skin once a week. 3 mL 4 No current facility-administered medications for this visit. Water intake: yes Current diet: Breakfast-- coffee with sugar and cream Snack-- protein bar and yogurt Lunch-- ham and cheese sandwich Snack-- tomatoes, cheese crackers, salami Dinner-- gyro bowl Snack-- skips OR apple with PB Drinks-- coffee, zero iced tea or zero pepsi, water Meals Away from Home-- 1-2 x per week Type of exercise: ADL, walking on occasion Weight loss Pharmacotherapy: yes Semaglutide 0.5 mg weekly There were no vitals taken for this visit. PHYSICAL EXAMINATION: General: Patient is well appearing and in no acute distress. Skin: No obvious rashes. HEENT: Head is atraumatic, normocephalic. Cardiovascular: Regular rate and effort of breathing. No conversational dyspnea. No cyanosis. Neuro: No obvious focal neurological deficits. Psych: Appropriate mood and affect. Assessment and Plan: Abnormal weight gain / There is no height or weight on file to calculate BMI. / Morbid obesity : - Would like to proceed with medical management - Barriers are consistency. - Motivators are feeling better overall, avoiding/reducing co-morbid conditions. - The patient was encouraged to to avoid all fruit juices and regular sodas, consume at least 64 ounces of water per day, keep food logs and get weighed on a weekly basis. They were encouraged to increase physical activity as prescribed. - Handouts regarding nutrition and physical activity were provided, as appropriate. 1. Keep a food log. If you bite it, write it! Apps like Air Button or StudyEdge Calorie goal: 1200 2. Drink 48-64 ounces of non-caloric beverages per day. No fruit juices or regular soda Try crystal light, propel, zero calorie flavored water, plain water 3. Goal of 30 minutes of exercise 5 days per week (150 minutes per week--can be divided up however you would like) Aim for aerobic activity and muscle strengthening activities 4. Increase fruit and vegetable servings to 5-6 per day. 1/2 of your plate should be fruits and vegetables 5. Eat 100-200 calories within 1-2 hours of awakening, and every 4 - 6 hours while awake. (3 meals with snacks in between) Choose 100 calorie or less snacks, protein snacks 7. Weight yourself weekly and follow trend over time (day to day weight fluctuations can be discouraging) 8. Decrease starches like bread, pasta, cereal, potatoes and corn. Aim for of your plate Try substitutions like zoodles, lentil pasta, cauliflower mashed potatoes, whole grain foods, quinoa Limit junk/processed foods Chips, pretzels, cookies, cakes, sweets White bread/rolls/wraps/bagels, white rice 9. Increase protein to feel full longer (1/4 of your plate) Diagnoses and all orders for this visit: Class 3 severe obesity due to excess calories without serious comorbidity with body mass index (BMI) of 40.0 to 44.9 in adult (HCC) -nausea with Ozempic 0.5mg - switch to Zepbound 2.5mg -continue adding 3 meals per day -has done a great job of increasing protein, fruits and vegetables! -add home exercise program -didn't respond to wellbutrin/naltrexone -nausea with semaglutide at 0.5mg and higher Abnormal weight gain CHRIS (generalized anxiety disorder) -stable The patient agreed to try the plan as discussed and return in 3 months. They were encouraged to call or send a patient portal message in the meantime with any questions or concerns prior to their next clinic visit. I spent a total of 20 minutes on the date of service in preparation, delivery, and documentation ofthe care provided to Rhiannon Andres excluding any time spent in the performance of separately billed services. This included but was no limited to providing counseling about the benefits of weight loss, about their nutritional status, detailed explanations about calorie count, types of nutrients to choose, and composition of the meals. Motivational interview provided in order to prepare the patient to achieve future goals. Carmela Pinto PA-C documented in this encounter Plan of Treatment Health Maintenance Due Date Last Done Comments HIV Screening 12/23/1999 Hepatitis C Screening 2002 Hepatitis B Vaccine (1 of 3 - 19+ 3-dose series) 12/23/2003 Depression Screening 05/08/2021 05/08/2020 COVID-19 Vaccine (1 - 2023-2 5 season) 2024 Influenza Vaccine (FLU shot) (#1) 2024 04/21/2019, 05/04/2018 Diabetes Screening 04/09/2025 04/09/2022, 12/31/2015 DTap/Tdap Vaccines (2 - Td o r [...] Primary documented in this encounter Care Teams Stem Crusher Relationship Specialty Start Date End Date Krystle Garcia DO [address] [facility] [place] [address] PCP - General Family Medicine 05/08/20 documented as of this encounter
--- OUTSIDE RECORDS SUMMARY | 2024-10-04 07:30 | External Medical Summary | Summary of Care ---
Author Name Unknown Organization [facility] Address [address] [place] [address] Phone [phone] Care Team Providers Care Fire Management Technician Name Role Phone Krystle Garcia DO Primary Care Provider [phone]- [phone] Encounter Details Date Type Department Care Team (Late st Contact Info) Description 06/20/2024 2:40 PM [facility] Telemedicine Nutrition & Weight Management, [facility] Katie Wyman [address] [place] [address] [place] [address] Leslie Tineo PA-C [address] [place] [address] [place] [address] Abnormal weight gain*; Class 3 severe obesity due to excess calories without serious comorbidity in adult, unspecified BMI (HCC) Allergies Active Allergy Reactions Criticality Noted Date Comments Meloxicam Edema face/lips/tongue High 10/20/2013 Hydrocodone-Acetaminophen Rash 10/20/2013 documented as of this encounter (statuses as of 06/20/2024) Medications Zepbound 5 MG/0.5ML Subcutaneous Solution Auto-injector (Tirzepatide-Garret ght Management) Inject 5 mg under the skin weekly 2 mL Active Zepbound 2.5 MG/0.5ML Subcutaneous Solution Auto-injector (Tirzepatide-Garret ght Management)Indic ations:Class 3 severe obesity due to excess calories without serious comorbidity with body mass index (BMI) of 40.0 to 44.9 in adult (HCC) Inject 2.5 mg (1 pen) under the skin once a week. 2 mL 2 06/06/2024 12:02 PM EST 4 024 Discontinued documented as of this encounter (statuses as of 06/20/2024) Active Problems Problem Noted Date Diagnosed Date Rhinosinusitis 01/23/2015 documented as of this encounter (statuses as of 06/20/2024) Resolved Problems Problem Noted Date Diagnosed Date [...] as of this encounter (statuses as of 06/20/2024) Immunizations Name Administration Dates Next Due Seasonal [...] years and over) Not on file 12/29/2023 Comments No Sex and Gender Information Value Date Recorded Sex Assigned at Not on file Legal Sex Female 5:39 AM EST Gender Identity Not on file Sexual Orientation Not on file documented as of this encounter Patient Instructions * Patient Instructions* Leslie Tineo PA-C - 06/20/2024 2:45 PM EST EXERCISE: FitOn Free or Premium $39.99/year Instructor lead workout classes Nutrition section with recipes Little to no equipment needed [employer] training Club Free Instruction demonstartions Play Book $14/month Access to personal trainers and structered workout programs [employer] Food Service Clerk 12.99/month Workouts generated based on available equiptment [employer] Free Instructor lead or demonstrated workouts Choose based on time, equipment, body part, or type or workout documented in this encounter Progress Notes * Leslie Tineo PA-C - 06/20/2024 2:40 PM EST [facility] Note Patient location: HOME. I was in a hospital or clinic location. After connecting through televideo,patient was verified with two unique identifiers. Patient (or authorized legal distribution sales representative) was then informed that this was a Telemedicine visit and being conducted confidentially over secure lines. Methods to assure confidentiality were taken. Patient acknowledged consent and understanding of pr ivacy and security of the Telemedicine visit. The patient agreed to participate. Rhiannon Andres presents in follow up to the comprehensive weight management clinic. The patient is a 38 year old female with PMH significant for obesity whom we have been following since 06/20/22. Her weight at that time was 221 lbs. Wt Readings from Last 6 Encounters: 12/05/22 92.2 kg (203 lb 3.2 oz) 04/07/22 101.5 kg (223 lb 12.8 oz) 09/23/21 102.7 kg (226 lb 6.4 oz) 03/27/21 105.3 kg (232 lb 3.2 oz) 12/12/20 104.1 kg (229 lb 9.6 oz) 05/08/20 103.3 kg (227 lb 12.8 oz) Patient is receiving ongoing education regarding dietary and physical modifications for weight loss. Patient is interested in the following treatment options for obesity: medical management and possible medication use. She was switched to Zepbound due to side effect of nausea and GI upset on ozempic and wegovy. She is tolerating Zepbound much better. She has lost 12 lbs since starting this. Current weight 211 lbs at home. The patient was last seen in this clinic 05/04/24. The patient's total weight change is -10 pounds. Review of Systems: The patient denies any chest pain, shortness of breath, palpitations or ankle edema. Current Medications: Current Outpatient Medications Medication Sig Dispense Refill Zepbound 2.5 MG/0.5ML Subcutaneous Solution Auto-injector (Tirzepatide-Weight Management) Inject 2.5 mg (1 pen) under the skin once a week. 2 mL 2 No current facility-administered medications for this visit. Water intake: yes Current diet: Breakfast-- skipped, was not feeling well Snack-- oatmeal bar Lunch-- veggie soup and egg salad Dinner-- veggie soup Drinks-- lemon water, pepsi zero, sparkling water, coffee with sugar and cream Food logs: Yes Exercise: hiking, walking, home bodyweight workouts Weight loss Pharmacotherapy: yes Zepbound 2.5 mg There were no vitals taken for this visit. PHYSICAL EXAMINATION: Awake, alert, oriented to person place and time Normal mood and affect Speech clear and appropriate Normal respiratory effort Assessment and Plan: Abnormal weight gain / There is no height or weight on file to calculate BMI. / Morbid obesity : - Would like to proceed with medical management and medication use - continue Zepbound, increase to 5 mg weekly if tolerated. Monitor as she has had side effects withOzempic and Wegovy in the past - GLP-1 consent to be reviewed and signed at her next in-person visit - goals as below, resources for home workouts provided today - follow up 3 months Goals for next visit: 1. Keep a food log, 1500 mulu/day 2. Drink 90 oz of water daily 3. Increase exercise as tolerated 4. Focus on balanced meals/ increase protein, 90 g daily 5. Do not skip meals The patient agreed to try the plan as discussed. They were encouraged to call or send a patient portal message in the meantime with any questions or concerns prior to their next clinic visit. Case discussed with Dr. Redman. I spent a total of 20-29 minutes (exact time 25 mins) on the date of service in [...] prepare the patient to achieve future goals. Leslie Tineo PA-C A dictation device was used for sections of this note. A reasonable effort to correct dictation error was made. documented in this encounter Plan of Treatment Upcoming Encounters Date Type Department Care Team (Late st Contact Info) Description 06/21/2024 11:20 AM EST Office Visit Family [facility] [address] [place] [address] Madi Pugh PA-C [address] [place] [address] Health Maintenance Due Date Last Done Comments HIV Screening 12/23/1999 Hepatitis C Screening 2002 Hepatitis B Vaccine (1 of 3 - 19+ 3-dose series) 12/23/2003 Depression Screening 05/08/2021 05/08/2020 COVID-19 Vaccine (2023-2 5 season) 2024 Influenza [...] as of this encounter Visit Diagnoses Diagnosis Abnormal weight gain- Primary Class 3 severe obesity due to excess calories without serious comorbidity in adult, unspecified BMI (HCC) documented in this encounter Care Teams Fire Management Technician Relationship Specialty Start Date End Date Krystle Garcia DO [address] [facility] [place] [address] PCP - General Family Medicine 05/08/20 documented as of this encounter
--- OUTSIDE RECORDS SUMMARY | 2024-10-04 07:30 | External Medical Summary | Summary of Care ---
Author Name Unknown Organization [facility] Address [address] [place] [address] Phone [phone] Care Team Providers Care Vice President Sales And Marketing Name Role Phone Jose Krystleelda Raygoza DO Primary Care Provider +1- [phone] Reason for Visit * Reason Comments Outpatient Testing Encounter Details Date Type Department Care Team (Late st Contact Info) Description 06/21/2024 12:00 PM EST Laboratory [address], [place] [address] [place] [id number] [place], [address] [place] [address] Other fatigue; Weight gain Allergies Active Allergy Reactions Criticality Noted Date Comments Meloxicam Edema face/lips/tongue High 10/20/2013 Hydrocodone-Acetaminophen Rash 10/20/2013 documented as of this encounter (statuses as of 06/21/2024) Medications Zepbound 5 MG/0.5ML Subcutaneous Solution Auto-injector (Tirzepatide-Garret ht Management) Inject 5 mg (1 pen) [...] EST Nurse Only Ancillary [address] [place] [address] [place] [address] 09/19/2024 1:00 PM EDT Office Visit Nutrition & Weight Management, [facility], Katie Wyman [address] [place] [address] [place] [address] Ivon Rios, GROUP WORK PROGRAM DIRECTOR [address] [place] [address] 06/23/2025 4:40 PM EST Office Visit [facility] [address] [place] [address] Madi Pugh PA-C [address] [place] [address] Pending Results Name Type Priority Associated Diagnoses [...] Weight gain 06/21/2024 11:33 AM EST CBC Lab Routine Other fatigue Weight gain 06/21/2024 11:33 AM EST DIFFERENTIAL, AUTOMATED Lab Routine Other fatigue Weight gain 06/21/2024 11:33 AM EST Health Maintenance Due Date Last [...] of this encounter Visit Diagnoses Diagnosis Other fatigue Weight gain Abnormal weight gain documented in this encounter Care Teams Vice President Sales And Marketing Relationship Specialty Start Date End Date [facility]rystle Garcia [facility] [address] [facility] [address] PCP - General Family Medicine 05/08/20 documented as of this encounter
--- OUTSIDE RECORDS SUMMARY | 2024-10-04 07:30 | External Medical Summary ---
Author Name Unknown Address Unknown Organization [id number]:[facility] - [address] [address] Laboratory Report Ordering Provider Test Date Status ANITRASUJIT 06/21/2024 11:33:24 Final Observation Date Value Abnormality Reference (Units ) Status SYNC LEUKOCYTES IN BLOOD BY AUTOMATED COUNT 06/21/2024 11:33:24 6.02 4.00-10.80 (K/uL) Final Segs 06/21/2024 11:33:24 60.9 40.0-75.0 (%) Final Lymphs % 06/21/2024 11:33:24 26.6 18.0-42.0 (%) Final Monos 06/21/2024 11:33:24 9.3 1.0-11.0 (%) Final Eosinophils 06/21/2024 11:33:24 2.0 0.0-6.0 (%) Final Basos 06/21/2024 11:33:24 0.5 0.0-2.0 (%) Final Immature Granulocyte, Percent 06/21/2024 11:33:24 0.7 0.0-2.0 (%) Final Absolute Segs 06/21/2024 11:33:24 3.67 1.80-7.70 (K/uL) Final Lymphs, absolute 06/21/2024 11:33:24 1.60 1.00-4.80 (K/ul) Final Monos, Abs 06/21/2024 11:33:24 0.56 0.00-1.10 (K/uL) Final Eos, Abs 06/21/2024 11:33:24 0.12 0.00-0.70 (K/uL) Final Basos, Abs 06/21/2024 11:33:24 0.03 0.00-0.20 (K/uL) Final Immature Granulocytes, Number 06/21/2024 11:33:24 0.04 0.00-0.20 (K/uL) Final Performing Location [facility] - [address] [facility] [address]
--- OUTSIDE RECORDS SUMMARY | 2024-10-04 07:30 | External Medical Summary ---
Author Name Unknown Address Unknown Organization [id number]:LAB[facility] - [address] [facility] [address] Laboratory Report Ordering Provider Test Date Status SUJIT AYOUB 06/21/2024 11:33:24 Final Observation Date Value Abnormality Reference (Units ) Status Triglyceride 06/21/2024 11:33:24 64 <=174 ( mg/dL) Final Triglyceride Reference Range s (mg/dL):
<150 Acceptable
150-174 Borderline high
175-499 High
>=500 Very high Cholesterol 06/21/2024 11:33:24 139 <200 (mg /dL) Final Total Cholesterol Reference Ranges (mg/dL):
<200 Desirable
200-239 Borderline high
>=240 High HDL 06/21/2024 11:33:24 53 >49 (mg/dL ) Final HDL Cholesterol Reference Ra nges (mg/dL):
>=60 High (Desirable)
<50 Low (Undesirable) For Females
<40 Low (Undesirable) For Males NON-HDL CHOLESTEROL 06/21/2024 11:33:24 86 <=159 (mg/dL) Final Non-HDL Cholesterol Referenc e Range (mg/dL):
<100 Target level for high risk ASCVD patient
<130 Optimal for general population
130-159 Near optimal for general population
160-189 Borderline High
190-219 High
>=220 Very High LDL, (calculated) 06/21/2024 11:33:24 73 <= 129 (mg/dL) Final LDL Cholesterol Reference Ra nges (mg/dL):
<70 Target level for high risk ASCVD patient
<100 Optimal for general population
100-129 Near optimal for general population
130-159 Borderline high
160-189 High
>=190 Very high Performing Location LABORATORY [facility] - [address] [facility] [address]
--- NOTE | 2024-10-04 09:06 | Cardiology Consultation ---
Date of Consultation October 04, 2024 History of Present Illness Reason for Consultation: Chest pain, palpitations Requesting Physician: Luis Enrique hospitalist Attending Physician: Zoë Silva MD History of Present Illness HPI: Patient is a 38 year old female with PMHx significant for Anxiety, and obesity (recently taking Zepbound for weight loss) that presents to the ER with approx one month of palpitations and chest pressure. Patient had been seen by her PCP over the past month for these symptoms, an EKG was obtained and patient was placed on a ZIO monitor on 09/29/2024. EKG on day of office visit shows SR with PVC in a trigeminy pattern. No acute ST-T wave changes. EKG on admission shows ST Rate 108, no acute ST-T wave changes. Troponin negative x2 Allergies Allergy/AdvReac Type Severity Reaction Status Date / Time acetaminophen Allergy Unknown RASH Verified 10/03/24 21:19 citalopram Allergy Unknown INSOMNIA Verified 10/03/24 21:19 hydrocodone Allergy Unknown RASH Verified 10/03/24 21:19 meloxicam Allergy Unknown LIP Verified 10/03/24 21:19 NUMBNESS Home Medications Medication Instructions Recorded Confirmed Type ascorbic acid (vitamin C) 1,000 mg 1,000 mg PO QAM 10/03/24 10/03/24 History tablet (Vitamin C) elderberry fruit 350 mg capsule 350 mg PO QAM 10/03/24 10/03/24 History Patient History Medical History (Updated 10/03/24 @ 22:20 by Casey Vernon MD) No pertinent past medical history No pertinent family history Surgical History (Updated 10/03/24 @ 17:43 by Casey Vernon MD) No pertinent past surgical history Social History Smoking Status: Never smoker Second Hand Exposure: No; Do You Dip or Chew Tobacco: No; Tobacco Cessation Education Requested by Patient: No Hx Alcohol Use: No Hx Substance Use: No Preferred Language: Kyrgyz Communication Ability: Effective Airport Tower Controller Required: No Beliefs That Will Affect Care: None Current Living Situation: Significant Other Other Information That Helps Us Care for You: No Feels Safe at Home: Yes Safety Concerns: Feels Safe At This Time Assistive Devices: Contacts Results & Data Vital Signs (Past 12 Hours) Vital Signs Temp Pulse Pulse Resp BP Pulse Ox O2 Del Method 10/04/24 07:49 36.9 C 89 18 108/69 96 Room Air 10/04/24 05:13 36.7 C 74 18 93/65 L 98 Room Air 10/04/24 02:51 78 10/03/24 23:00 36.8 C 79 16 114/82 98 Room Air 10/03/24 22:41 74 18 109/76 98 Room Air 10/03/24 21:21 90 16 109/67 95 Room Air 10/03/24 21:14 93 H 22 121/76 97 Room Air Laboratory Results Cardiac Enzymes 10/03/24 10/03/24 Range/Units 17:28 19:33 AST 15 (13-39) U/L Troponin I High Sens < 2.3 2.5 (0-14) pg/ml Coagulation 10/03/24 Range/Units 17:28 PT 9.9 (9.0-12.0) Seconds APTT 24 (21-31) Seconds CBC 10/03/24 10/04/24 Range/Units 17:28 05:41 WBC 8.28 6.20 (4.8-10.8) K/ul RBC 4.61 4.20 (4.20-5.40) M/uL Hgb 13.4 12.3 (12.0-16.0) g/dl Hct 40.2 37.0 (37.0-47.0) % Plt Count 235 205 (130-400) K/uL Neut # (Auto) 5.02 2.80 (1.40-6.50) K/uL Lymph # (Auto) 2.41 2.54 (1.20-3.40) K/uL [place] # (Auto) 0.69 H 0.65 H (0.11-0.59) K/uL Eos # (Auto) 0.11 0.17 (0.00-0.50) K/uL Baso # (Auto) 0.03 0.03 (0.00-0.20) K/uL Comprehensive Metabolic Panel 10/03/24 10/03/24 10/04/24 Range/Units 17:28 19:33 05:41 Sodium 139 140 (136-145) mmol/L Potassium 3.7 4.2 (3.5-5.1) mmol/L Chloride 107 111 H (98-107) mmol/L Carbon Dioxide 26 26 (21-32) mmol/L BUN 17 16 (6-23) mg/dl Creatinine 0.75 0.71 (0.6-1.2) mg/dl Glucose 93 91 (70-99(Fasting)) mg/dl Calcium 9.1 8.5 L (8.6-10.3) mg/dl Direct Bilirubin 0.1 (0-0.2) mg/dl AST 15 (13-39) U/L ALT 18 (7-52) U/L Alkaline Phosphatase 54 (34-104) U/L Total Protein 6.8 (6.0-8.3) gm/dl Albumin 4.3 (3.4-5.0) gm/dl Intake and Output 10/03/24 10/04/24 10/04/24 22:59 06:59 14:59 Intake Total 200 / 200 1000 / 1000 Balance 200 / 200 1000 / 1000 Intake: IV 1000 / 1000 Nss + 20Meq KCl 20 meq In 1,000 1000 / 1000 ml @ 100 mls/hr IV .Q10H ONE Rx#:[id number] Oral 200 / 200 Other: # Unmeasured Voids 1 Weight 97.1 kg 95.8 kg Weight Measurement Method Chair Scale Standing Scale Diagnostic Findings EKG OP OV visit [facility] 09/29/24 CONCLUSIONS: Sinus rhythm with frequent Premature ventricular complexes Otherwise normal ECG When compared with ECG of 23-Sep-2024 11:59, Premature ventricular complexes are now Present Ventricular Rate: 70
[2024-10-04] MEDS: METOPROLOL TARTRATE 25 MG TAB PO SCH (10:55)
--- NOTE | 2024-10-04 13:23 | Electrocardiogram Report ---
Test Reason : Blood Pressure : */* mmHG Vent. Rate : 108 BPM Atrial Rate : 108 BPM P-R Int : 132 ms QRS Dur : 82 ms QT Int : 348 ms P-R-T Axes : 54 -2 41 degrees QTcB Int : 466 ms Sinus tachycardia Otherwise normal ECG No previous ECGs available Confirmed by Padilla Pollack ([id number]) on 10/04/2024 1:23:04 PM Referred By: REFERRED SELF Confirmed By: Padilla Pollack
--- NOTE | 2024-10-04 15:42 | Hospitalist Progress Note ---
Date of Service October 04, 2024 Assessment & Plan (1) Chest pressure: (2) Anxiety: Plan 38-year-old female with PMH of anxiety, recently taking Zepbound for weight loss which she has stopped about a month and a half ago presents to the ED 09/29 with complaints of worsening chest pressure and shortness of breath over the past month. Patient reported about 4 weeks ago developing midsternal chest pressure which has been constant and has been worsening with activity since then. She had a Zio patch on for few days that was discontinued 09/29/2024. Patient denies any fever/chills/sore throat/cough/nausea/vomiting/diarrhea/belly pain. She is being managed for the following: Chest pressure Palpitations Likely symptomatic PVCs Patient presents with chest pressure, worse with activity. Troponin x 2 negative, EKG with sinus tachycardia. Follow-up echo, beta-kristine initiated to suppress symptomatic PVCs. Cardiology consult, await recommendation. Headache Possible sleep apnea Morbid obesity Patient reports headache of about 1 and half months duration, constant, in the frontal/forehead area. No sinus tenderness on exam. She reports waking up feeling tired and with more headache even though when she feels she had good night sleep CT head with no acute finding. Will get nocturnal pulse ox, she was advised to follow-up with formal sleep study upon discharge. MRI brain was ordered at admission, MRI currently unavailable in the hospital, can follow-up with MRI as an outpatient. Encouraged wt loss, daily exercise regimen. Right breast mass: CT angio chest revealed 13 x 17 mm and 5 x 10 mm density in the right breast. Patient and her boyfriend was made aware of this finding at bedside 10/04. Recommended that they follow-up with mammogram as an outpatient in coordination with their PCP office. Anxiety/mood disorder, stable off maintenance medications DVT prophylaxis. SCDs Full code Admission and Anticipated Discharge Date Admission Date: October 03, 2024 Subjective Patient was seen and examined at bedside. Patient was sitting up in bed, on room air, NAD, resting comfortably. Patient's boyfriend at bedside who was also updated on plan of care. Patient reports constant chest pressure which is worse with activity, also has shortness of breath with activity. Patient denies any fever/sore throat. Patient reports waking up tired even though she feels she had a good night sleep, reports headache all the time more so in the morning. Patient feels tired and fatigued through the day and sleepy as well. We discussed about getting sleep study as an outpatient, will get nocturnal pu lse oximetry while inpatient. We also discussed about right breast mass and need for mammogram as an outpatient, they voiced understanding. Physical Exam Physical Exam: Constitutional: WD/WN, vitals as a belg[place] Eyes: PERRL, conjunctiva e normal, anicteri c sclerae ENMT: external ear and n ose normal, oropha rynx normal, no si nus tenderness Neck: trachea midline, n o thyromegaly Respiratory: normal respiratory effort, lungs eladio ar to auscultation Cardiovascular: RRR, no murmur, no edema Gastrointestinal ( Abdomen): normal bowel sound s, soft, nontender , no hepatosplenom egaly Musculoskeletal: no cyanosis or clu bbing, extremities motor strength 5/ 5 Skin: no rashes, warm an d dry Neurologic: PERRL, EOMI, accom modation nl, no fa ce palsy, no dysar thria Psychiatric: A+Ox3, euthymic af fect Lymphatic: no cervical or axi llary lymphadenopa thy Results & Data Results & Data Vital Signs (Past 12 Hours) Vital Signs Temp Pulse Resp BP Pulse Ox O2 Del Method 10/04/24 11:51 36.9 C 65 18 109/68 97 Room Air 10/04/24 10:14 83 100/68 10/04/24 07:49 36.9 C 89 18 108/69 96 Room Air 10/04/24 05:13 36.7 C 74 18 93/65 L 98 Room Air
--- NOTE | 2024-10-04 17:19 | Ultrasound Report ---
Clinical history: Gallstones Technique: Sonography was performed of the right upper quadrant of the abdomen Findings: There is no sign of cirrhosis or significant fatty infiltration. No definite liver mass is seen Numerous gallstones are present. The gallbladder has a normal wall thickness and no adjacent fluid is seen. No definite sonographic Francis sign was detected. There is no intrahepatic or extrahepatic bile duct dilatation. The common bile duct measures 3 mm The right kidney measures 10.3 cm in length. There is no hydronephrosis. No definite renal calculus or mass is seen The visualized pancreas, aorta, and IVC appear unremarkable. No ascites is seen Impression: Cholelithiasis without definite acute cholecystitis ACT 112: Positive. There are findings on this exam that require communication between the performing entity and the patient following Patient Test Result Information Act ([place] ACT 112) guidelines. Electronically signed by Jas Call 10-04-2024 5:18 PM
--- NOTE | 2024-10-04 18:52 | Cardiology Consultation ---
Date of Consultation October 04, 2024 Assessment & Plan (1) PVCs (premature ventricular contractions): Patient with PVCs and increased cardiac awareness. Given fatigue is being one of her side effects, we will transition from Toprol to atenolol as this can have less fatigue related side effects. She has a history of a partial hysterectomy and therefore she does not plan on having anymore children. The likelihood of her symptoms being related to coronary heart disease is low. She did have a screening lipid panel performed on 06/21/2024 as an outpatient with normal cholesterol levels including total cholesterol 139, HDL 53, LDL 73 mg/dL. As noted, echocardiogram performed today revealed no structural abnormalities, normal LVEF. I discussed her case with Dr. Silva. From a cardiac perspective, she is stable for discharge. She has already worn a Zio patch monitor which was placed in the mail yesterday and we should have the results of that back in 7 to 10 days. The patient however is going to remain in the hospital for additional testing including a nocturnal pulse oximetry test and evaluation for gallstones. History of Present Illness Attending Physician: Zoë Silva MD History of Present Illness Rhiannon Andres is a 38-year-old female seen in cardiology consultation per the request of Dr. Fierro for the evaluation of subjective palpitations, chest hea viness, dizziness, and fatigue. Patient notes onset about a month ago and had been seen by primary care. EKG performed 09/23/2024 as an outpatient revealed sinus rhythm with sinus arrhythmia without abnormality. A repeat tracing performed for ongoing symptoms a week later on 09/29/2024 revealed sinus rhythm with frequent PVCs. Overnight on telemetry sinus rhythm with occasional PVCs noted. An echocardiogram has been performed during her hospital stay that revealed no evidence of structural heart disease. Patient states that she feels slightly improved having received a low-dose of metoprolol to tartrate earlier today. 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 She lives with her boyfriend and her 2 daughters ages 20 and 18, She denies history of smoking or alcohol use Allergies Allergy/AdvReac Type Severity Reaction Status Date / Time acetaminophen Allergy Unknown RASH Verified 10/03/24 21:19 citalopram Allergy Unknown INSOMNIA Verified 10/03/24 21:19 hydrocodone Allergy Unknown RASH Verified 10/03/24 21:19 meloxicam Allergy Unknown LIP Verified 10/03/24 21:19 NUMBNESS Home Medications Medication Instructions Recorded Confirmed Type ascorbic acid (vitamin C) 1,000 mg 1,000 mg PO QAM 10/03/24 10/03/24 History tablet (Vitamin C) elderberry fruit 350 mg capsule 350 mg PO QAM 10/03/24 10/03/24 History Patient History Medical History No pertinent past medical history No pertinent family history Surgical History No pertinent past surgical history Social History Smoking Status: Never smoker Second Hand Exposure: No; Do You Dip or Chew Tobacco: No; Tobacco Cessation Education Requested by Patient: No Hx Alcohol Use: No Hx Substance Use: No Preferred Language: Vietnamese Communication Ability: Effective Men'S Basketball Coach Required: No Beliefs That Will Affect Care: None Current Living Situation: Significant Other Other Information That Helps Us Care for You: No Feels Safe at Home: Yes Safety Concerns: Feels Safe At This Time Assistive Devices: None Review of Systems Review of Systems: All systems reviewed & are unremarkable except as noted in HPI & below Physical Exam Physical Exam: General: no acute distress and stated age Eyes: conjunctiva are pink and non-injected, sclera clear Neck: normal jugular venous pulse, no hepatojugular reflux Chest: normal shape and normal respiratory effort Lungs: clear to auscultation and percussion Cardiac Exam: - regular heart sounds, no murmurs, rubs, or gallops, no jugular venous distention Abdomen: abdomen soft, non-tender, no abnormal masses and no hepatosplenomegaly Musculoskeletal: no gait disturbance, no weakness Extremities: no edema and no cyanosis Neuro:awake, conversant, follows commands, no focal motor deficits Psych: appropriate affect and insight. Results & Data Vital Signs (Past 12 Hours) Vital Signs Temp Pulse Resp BP Pulse Ox O2 Del Method 10/04/24 11:51 36.9 C 65 18 109/68 97 Room Air 10/04/24 10:14 83 100/68 10/04/24 07:49 36.9 C 89 18 108/69 96 Room Air Laboratory Results Cardiac Enzymes 10/03/24 Range/Units 19:33 AST 15 (13-39) U/L Troponin I High Sens 2.5 (0-14) pg/ml CBC 10/04/24 Range/Units 05:41 WBC 6.20 (4.8-10.8) K/ul RBC 4.20 (4.20-5.40) M/uL Hgb 12.3 (12.0-16.0) g/dl Hct 37.0 (37.0-47.0) % Plt Count 205 (130-400) K/uL Neut # (Auto) 2.80 (1.40-6.50) K/uL Lymph # (Auto) 2.54 (1.20-3.40) K/uL [place] # (Auto) 0.65 H (0.11-0.59) K/uL Eos # (Auto) 0.17 (0.00-0.50) K/uL Baso # (Auto) 0.03 (0.00-0.20) K/uL Comprehensive Metabolic Panel 10/03/24 10/04/24 Range/Units 19:33 05:41 Sodium 140 (136-145) mmol/L Potassium 4.2 (3.5-5.1) mmol/L Chloride 111 H (98-107) mmol/L Carbon Dioxide 26 (21-32) mmol/L BUN 16 (6-23) mg/dl Creatinine 0.71 (0.6-1.2) mg/dl Glucose 91 (70-99(Fasting)) mg/dl Calcium 8.5 L (8.6-10.3) mg/dl Direct Bilirubin 0.1 (0-0.2) mg/dl AST 15 (13-39) U/L ALT 18 (7-52) U/L Alkaline Phosphatase 54 (34-104) U/L Total Protein 6.8 (6.0-8.3) gm/dl Albumin 4.3 (3.4-5.0) gm/dl lyme screen was negative Diagnostic Findings EKG performed 09/29/2024 at 1711 and interpreted Independently: Sinus tachycardia 100 bpm, otherwise normal.
--- NOTE | 2024-10-04 19:37 | Surgery Consultation ---
Date of Consultation October 04, 2024 Assessment & Plan (1) Cholelithiasis: I evaluated the patient in room 452. From surgery perspective we recommend the following: At the present time the patient does not have cholecystitis by ultrasound Her LFTs are normal Certainly her abdominal pain may be related to biliary colic from her gallstones but in the absence of cholecystitis I not feel an emergent or semi- emergent operation is required at this time I feel be acceptable for patient to have a diet In the absence of cholecystitis I do not feel antibiotics are required If patient is discharged home from the hospital tomorrow, outpatient follow-up can be employed and consideration can be given to performing cholecystectomy on an elective basis if the patient desires Certainly if the patient develops any change in clinical status that would raise a concern for cholecystitis surgical plans and a more emergent basis can be considered History of Present Illness Reason for Consultation: Gallstones Attending Physician: Zoë Silva MD History of Present Illness This is a 38-year-old female who was recently admitted to the hospital secondary to palpitations. General surgery was asked to see the patient secondary to right-sided abdominal pain. When questioning patient she said that she has been having right-sided abdominal pain for an unspecified amount of time. She notes that the pain comes in a random fashion and is primarily confined to the right side of her abdomen with some pain in the right upper quadrant and some of the right lower quadrant. When she gets the pain she denies any nausea or vomiting. She also denies any fevers, shakes, or chills. She notes that the pain is entirely unrelated to meals and specifically denies any postprandial pain over the past several weeks to months. She does report history of endometriosis which was diagnosed by exploratory laparoscopy. She said that she did require hysterectomy secondary to her endometriosis. Since admission to the hospital patient has had labs and imaging which independent reviewed. A chest x-ray showed no evidence of pneumonia. A CT scan of the chest showed no evidence of pneumonia, pulmonary embolism, or pleural effusion. The patient was noted to have a lobular densities in her breast tissue. Gallstones were identified on the upper abdominal portion of the study. A CT scan of her head showed no acute intracranial abnormality. As the patient reported right-sided abdominal pain at the has noted gallstones on the CT scan of her chest and gallbladder ultrasound was performed. This showed the patient had gallstones however she did not have any gallbladder wall thickness or pericholecystic fluid. She did not have any biliary ductal dilatation. Available labs were from today including a CBC were white blood cell count, hemoglobin, hematocrit, and platelet count were normal. Chemistry profile showed sodium and potassium as well as the BUN and creatinine were normal. The patient's total and direct bilirubin were not elevated, AST and ALT were normal, and alkaline phosphatase was normal as well. At the time of my interview she was resting comfortably bed and she was in no distress. Allergies Allergy/AdvReac Type Severity Reaction Status Date / Time acetaminophen Allergy Unknown RASH Verified 10/03/24 21:19 citalopram Allergy Unknown INSOMNIA Verified 10/03/24 21:19 hydrocodone Allergy Unknown RASH Verified 10/03/24 21:19 meloxicam Allergy Unknown LIP Verified 10/03/24 21:19 NUMBNESS Home Medications Medication Instructions Recorded Confirmed Type ascorbic acid (vitamin C) 1,000 mg 1,000 mg PO QAM 10/03/24 10/03/24 History tablet (Vitamin C) elderberry fruit 350 mg capsule 350 mg PO QAM 10/03/24 10/03/24 History Patient History Medical History No pertinent past medical history No pertinent family history Surgical History No pertinent past surgical history Social History Smoking Status: Never smoker Second Hand Exposure: No; Do You Dip or Chew Tobacco: No; Tobacco Cessation Education Requested by Patient: No Hx Alcohol Use: No Hx Substance Use: No Preferred Language: Bulgarian Communication Ability: Effective Data Analysis Manager Required: No Beliefs That Will Affect Care: None Current Living Situation: Significant Other Other Information That Helps Us Care for You: No Feels Safe at Home: Yes Safety Concerns: Feels Safe At This Time Assistive Devices: None Review of Systems Review of Systems: All systems reviewed & are unremarkable except as noted in HPI & below Physical Exam Constitutional: WD/WN, vitals as above Eyes: + anicteric sclerae ENMT: Ears: no hearing impairment and no external ear abnormality Mouth: no oropharynx abnormality Sublingual jaundice is absent Neck: trachea midline Respiratory: normal respiratory effort; no respiratory distress and no labored breathing Cardiovascular: Rate/Rhythm: regular rate and regular rhythm Gastrointestinal (Abdomen): Abdomen is soft without distention or rigidity. There is no rebound tenderness or guarding. Patient did have some slight tenderness with palpation of the right side of her abdomen. Francis sign was negative. Musculoskeletal: No calf tenderness Skin: no jaundice Neurologic: moves all extremities Psychiatric: A+Ox3, euthymic affect Results & Data Vital Signs (Past 12 Hours) Vital Signs Temp Pulse Pulse Resp BP Pulse Ox O2 Del Method 10/04/24 19:29 36.8 C 77 16 112/70 98 Room Air 10/04/24 14:00 76 10/04/24 11:51 36.9 C 65 18 109/68 97 Room Air 10/04/24 10:14 83 100/68 10/04/24 08:00 63 10/04/24 07:49 36.9 C 89 18 108/69 96 Room Air PG Care Time/CCT Total # of Minutes Spent Total Time Spent with Patient: Total time spent is greater than 50% in coordination of care (as documented) at patient's floor/unit and/or counseling patient: Coding Level of Care Code 56346 OFFICE CONSULT LVL Diagnoses Cholelithiasis K80.20
[2024-10-04] MEDS: ATENOLOL 25 MG TABLET PO ONE (19:48)
[2024-10-05 06:23] LABS: Hematocrit (blood only) 37.8 % (37.0-47.0); Hemoglobin 12.5 g/dl (12.0-16.0); Mean Corpuscular Hemoglobin 28.9 pg (25.0-34.0); Mean Corpuscular Hgb Conc 33.1 g/dL (32.0-36.0); Mean Corpuscular Volume 87.5 fL (80.0-100.0); Mean Platelet Volume 11.5 fL (9.4-12.4); Platelet Count 204 K/uL (130-400); RDW Coefficient of Variation 12.8 % (11.5-14.5); RDW Standard Deviation 41.1 fL (36.4-46.3); Red Blood Count 4.32 M/uL (4.20-5.40); White Blood Count 7.26 K/ul (4.8-10.8)
[2024-10-05 06:44] LABS: BUN Creatinine Ratio 26.1 (10-20); Calcium 8.7 mg/dl (8.6-10.3); Creatinine Clr Calc Pharmacy 113.3 ml/min
[2024-10-05 08:32] VITALS: TEMP 98.2; O2SAT 97
[2024-10-05] MEDS: ATENOLOL 25 MG TABLET PO SCH ×2 (09:13→11:27)
--- NOTE | 2024-10-05 09:36 | Surgery Progress Note ---
Date of Service October 05, 2024 Assessment & Plan (1) Cholelithiasis: Plan: Her ultrasound images and results were personally viewed and interpreted by myself She certainly does have gallstones and the pain she describes that she has had in the past could certainly be related to these She has no signs of cholecystitis and is tolerating a diet No need for surgery as an inpatient She can follow-up with me as an outpatient to discuss elective cholecystectomy Surgery will sign off at this time, please call with any questions or concerns Admission and Anticipated Discharge Date Admission Date: October 03, 2024 Subjective Patient seen and examined. Denies any abdominal pain this morning. Tolerating her breakfast. Denies any nausea or vomiting. Afebrile. Review of Systems Constitutional: as per Subjective / HPI; no fever and no chills Respiratory: no cough and no dyspnea Cardiovascular: no chest pain and no dyspnea on exertion Gastrointestinal: no abdominal pain, no nausea and no vomiting Genitourinary: no dysuria and no urinary urgency Musculoskeletal: no back pain and no neck pain Integumentary: no acne, no sores and no dry skin Psychiatric: no behavioral changes and no depression Hematologic / Lymphatic: no easy bleeding and no easy bruising Physical Exam Constitutional: WD/WN, vitals as above Eyes: PERRL, conjunctivae normal, anicteric sclerae Respiratory: normal respiratory effort, lungs clear to auscultation Cardiovascular: RRR, no murmur, no edema Gastrointestinal (Abdomen): Inspection/Auscultation: abdomen normal to inspection; abdomen not distended Percussion/Palpation: abdomen soft; abdomen nontender and no guarding Musculoskeletal: no cyanosis or clubbing, extremities motor strength 5/5 Skin: no rashes, warm and dry Psychiatric: A+Ox3, euthymic affect Results & Data Vital Signs (Past 12 Hours) Vital Signs Temp Pulse Pulse Pulse Resp BP Pulse Ox 10/05/24 08:11 36.8 C 69 18 108/75 97 10/05/24 07:53 58 L 10/05/24 03:57 36.5 C 73 18 99/65 L 95 10/05/24 03:12 67 10/04/24 23:59 36.4 C L 65 18 90/57 L 97 10/04/24 23:06 72 10/04/24 21:59 68 Pulse Ox O2 Del Method O2 Del Method 10/05/24 08:11 Room Air 10/05/24 07:53 10/05/24 03:57 Room Air 10/05/24 03:12 95 Room Air 10/04/24 23:59 Room Air 10/04/24 23:06 10/04/24 21:59 98 Room Air PG Care Time/CCT Total # of Minutes Spent Total Time Spent with Patient: Total time spent is greater than 50% in coordination of care (as documented) at patient's floor/unit and/or counseling patient: Coding Level of Care Code 40329 SUB INP/OBS CARE 08/06MIN Diagnoses Cholelithiasis K80.20
--- NOTE | 2024-10-05 11:14 | Cardiology Progress Note ---
Date of Service October 05, 2024 Assessment & Plan (1) PVCs (premature ventricular contractions): Plan: Patient with PVCs and increased cardiac awareness. Continue atenolol 25 mg daily in am (change hold parameters for HR less than 60 , SBP less than 90 mm Hg. Await results of outpatient Zio monitor which should be available in 7-10 day. Stable for discharge from a cardiac perspective. Follow up with PCP. Admission and Anticipated Discharge Date Admission Date: October 03, 2024 Subjective Patient seen in cardiology follow up. Feeling well. Telemetry reveals SR with occasional PVCs. Physical Exam Physical Exam: General: no acute distress and stated age Eyes: conjunctiva are pink and non-injected, sclera clear Neck: normal jugular venous pulse, no hepatojugular reflux Chest: normal shape and normal respiratory effort Lungs: clear to auscultation and percussion Cardiac Exam: - regular heart sounds, no murmurs, rubs, or gallops, no jugular venous distention Abdomen: abdomen soft, non-tender, no abnormal masses and no hepatosplenomegaly Musculoskeletal: no gait disturbance, no weakness Extremities: no edema and no cyanosis Neuro:awake, conversant, follows commands, no focal motor deficits Psych: appropriate affect and insight. Results & Data Vital Signs (Past 12 Hours) Vital Signs Temp Pulse Pulse Pulse Resp BP Pulse Ox 10/05/24 08:11 36.8 C 69 18 108/75 97 10/05/24 07:53 58 L 10/05/24 03:57 36.5 C 73 18 99/65 L 95 10/05/24 03:12 67 10/04/24 23:59 36.4 C L 65 18 90/57 L 97 Pulse Ox O2 Del Method O2 Del Method 10/05/24 08:11 Room Air 10/05/24 07:53 10/05/24 03:57 Room Air 10/05/24 03:12 95 Room Air 10/04/24 23:59 Room Air
[2024-10-05 11:57] VITALS: BP 96/56; PULSE 71; RESP 16
--- NOTE | 2024-10-05 13:16 | Hospitalist Progress Note ---
Date of Service October 05, 2024 Assessment & Plan (1) Chest pressure: (2) Anxiety: Plan 38-year-old female with PMH of anxiety, recently taking Zepbound for weight loss which she has stopped about a month and a half ago presents to the ED 09/29 with complaints of worsening chest pressure and shortness of breath over the past month. Patient reported about 4 weeks ago developing midsternal chest pressure which has been constant and has been worsening with activity since then. She had a Zio patch on for few days that was discontinued 09/29/2024. Patient denies any fever/chills/sore throat/cough/nausea/vomiting/diarrhea/belly pain. She is being managed for the following: Chest pressure Palpitations Likely symptomatic PVCs Patient presents with chest pressure, worse with activity. Troponin x 2 negative, EKG with sinus tachycardia. Follow-up echo, beta-kristine initiated to suppress symptomatic PVCs. Appreciate cardiology input and recommendation Her symptoms have been reduced and she has been ambulating without any difficulties Her heart rate is controlled with current medications and she will be discharged home this afternoon Headache Possible sleep apnea Morbid obesity Patient reports headache of about 1 and half months duration, constant, in the frontal/forehead area. No sinus tenderness on exam. She reports waking up feeling tired and with more headache even though when she feels she had good night sleep CT head with no acute finding. Will get nocturnal pulse ox, she was advised to follow-up with formal sleep study upon discharge. Nocturnal pulse oximetry has been negative Her headache has improved a lot and without any neurological symptoms and no worsening of her symptoms MRI will be canceled Discussed that with her in detail and she was agreeable Right breast mass: CT angio chest revealed 13 x 17 mm and 5 x 10 mm density in the right breast. Patient and her boyfriend was made aware of this finding at bedside 10/04. Recommended that they follow-up with mammogram as an outpatient in coordination with their PCP office. She will need to have mammogram as an outpatient as soon as possible Anxiety/mood disorder, stable off maintenance medications DVT prophylaxis. SCDs Full code Admission and Anticipated Discharge Date Admission Date: October 03, 2024 Subjective 10/05/2024 The patient was seen and examined in telemetry unit She has been feeling much better and complains to have occasional dizziness and mild headache She denies any other neurological symptoms with the headache and it has been getting better She has been ambulating without difficulties and she wants to go home this afternoon Review of Systems Review of Systems: All systems reviewed and are unremarkable except as noted below Physical Exam Physical Exam: Lying in bed without any acute distress Constitutional: well developed and well nourished; not ill appearing Eyes: PERRL, conjunctivae normal, anicteric sclerae ENMT: external ear and nose normal, oropharynx normal Neck: trachea midline, no thyromegaly Respiratory: normal respiratory effort; no respiratory distress Auscultation: lungs clear to auscultation bilaterally Cardiovascular: Rate/Rhythm: regular rate and regular rhythm; not tachycardic Heart Sounds: normal S1 and normal S2; no murmur Extremities: no edema Gastrointestinal (Abdomen): Inspection/Auscultation: abdomen normal to inspection and normal bowel sounds; abdomen not distended Musculoskeletal: No acute arthritis involving any of the joint Neurologic: normal touch/pain/proprioception and moves all extremities; no focal motor deficits Psychiatric: A+Ox3, euthymic affect Lymphatic: no cervical or axillary lymphadenopathy Results & Data Results & Data Vital Signs (Past 12 Hours) Vital Signs Temp Pulse Pulse Pulse Resp BP Pulse Ox 10/05/24 11:56 36.8 C 71 16 96/56 L 97 10/05/24 08:11 36.8 C 69 18 108/75 97 10/05/24 07:53 58 L 10/05/24 03:57 36.5 C 73 18 99/65 L 95 10/05/24 03:12 67 Pulse Ox O2 Del Method O2 Del Method 10/05/24 11:56 Room Air 10/05/24 08:11 Room Air 10/05/24 07:53 10/05/24 03:57 Room Air 10/05/24 03:12 95 Room Air Laboratory Results Short CBC 10/05/24 Range/Units 05:44 WBC 7.26 (4.8-10.8) K/ul Hgb 12.5 (12.0-16.0) g/dl Hct 37.8 (37.0-47.0) % Plt Count 204 (130-400) K/uL BMP 10/05/24 05:44 Sodium 138 Potassium 4.0 Chloride 108 H Carbon Dioxide 27 BUN 18 Creatinine 0.69 Glucose 95 Calcium 8.7 Medications Administered Current Inpatient Medications Acetaminophen (Acetaminophen 325 Mg Tab) 650 mg PO QID PRN PRN Reason: pain/fever Stop: 11/02/24 21:10 Atenolol (Atenolol 25 Mg Tablet) [facility] [place]: 11/04/24 11:14 Last Admin: 10/05/24 11:27 Dose: 25 mg Promethazine HCl (Phenergan) 12.5 mg in 50.5 mls @ 202 mls/hr IV Q6H PRN PRN Reason: Nausea And Vomiting Stop: 11/02/24 21:10 Lorazepam (Lorazepam 0.5 Mg Tab) 0.5 mg PO TID PRN PRN Reason: Anxiety Stop: 11/02/24 21:10 Morphine Sulfate (Morphine Sulfate 4 Mg/Ml 1 Ml Carp\Vial) 4 mg IV Q4H PRN PRN Reason: Pain Stop: 10/17/24 21:10 Oxycodone HCl (Oxycodone Hcl Ir 5 Mg Tab (Immediate Release)) 5 mg PO Q4H PRN PRN Reason: Pain Stop: 10/17/24 21:10
--- NOTE | 2024-10-05 17:32 | Discharge Summary ---
Date of Service October 05, 2024 Admission HPI Per Admitting Provider The patient is a 38-year-old female with a past medical history of anxiety, recently taking Zepbound for weight loss which she stopped about a month and a half ago who presents to the ED on 09/29/2024 with complaints of worsening chest pressure and shortness of breath over the past month. Patient reports about 4 weeks ago developing midsternal chest pressure. The chest pain is not reproducible. She reports about 2 weeks ago getting blood work done again EKG done at the doctor's office which was normal. About 6 days after that, she still did not feel right, reported getting EKG done outpatient that showed PVCs. She had a Zio patch on for few days that was discontinued today 09/29/2024. She still did not receive the results. She has a follow-up appointment with cardiology in 1 week. Reports the shortness of breath is worsening and she is unable to have a full conversation or go up the steps without being short of breath. Denies any fever/chills. Denies any nausea/vomiting/diarrhea. Denies any abdominal pain. Denies any recent changes in her diet. Denies any recent travel. Denies any recent respiratory symptoms. On arrival to the ED, chest x-ray showed no acute changes On exam, patient had rare PVCs and was mildly tachycardic rates [id number] Labs are fairly unremarkable. Troponin negative. Lyme pending. The patient will be admitted for further workup for atypical chest pain. Admission Exam Per Admitting Provider Constitutional: WD/WN, vitals as above Eyes: PERRL, conjunctivae normal, anicteric sclerae ENMT: external ear and nose normal, oropharynx normal Neck: trachea midline, no thyromegaly Respiratory: normal respiratory effort, lungs clear to auscultation Cardiovascular: RRR, no murmur, no edema (Mildly tachycardic on exam) Gastrointestinal (Abdomen): normal bowel sounds, soft, nontender, no hepatosplenomegaly Musculoskeletal: no cyanosis or clubbing, extremities motor strength 5/5 Skin: no rashes, warm and dry Neurologic: PERRL, EOMI, accommodation nl, no face palsy, no dysarthria Psychiatric: A+Ox3, euthymic affect Lymphatic: no cervical or axillary lymphadenopathy Principal Diagnosis Palpitations,Right Breast mass Discharge Exam Lying in bed without any acute distress Constitutional well developed and well nourished; not ill appearing Eyes PERRL, conjunctivae normal, anicteric sclerae ENMT external ear and nose normal, oropharynx normal Neck trachea midline, no thyromegaly Respiratory normal respiratory effort; no respiratory distress Auscultation: lungs clear to auscultation bilaterally Cardiovascular Rate/Rhythm: regular rate and regular rhythm; not tachycardic Heart Sounds: normal S1 and normal S2; no murmur Extremities: no edema Gastrointestinal (Abdomen) Inspection/Auscultation: abdomen normal to inspection and normal bowel sounds; abdomen not distended Neurologic normal touch/pain/proprioception and moves all extremities; no focal motor deficits Psychiatric A+Ox3, euthymic affect Lymphatic no cervical or axillary lymphadenopathy Discharge Data Allergies Allergy/AdvReac Type Severity Reaction Status Date / Time acetaminophen Allergy Unknown RASH Verified 10/03/24 21:19 citalopram Allergy Unknown INSOMNIA Verified 10/03/24 21:19 hydrocodone Allergy Unknown RASH Verified 10/03/24 21:19 meloxicam Allergy Unknown LIP Verified 10/03/24 21:19 NUMBNESS Consultations 10/03/24 19:15 ED Decision to Admit Stat 10/03/24 23:12 Consult Cardiology Routine 10/04/24 16:11 Consult General Surgery Routine 10/05/24 08:15 Burn CD for patient Routine Ordered Studies 10/03/24 21:13 CT angio chest dissec wo/w con Stat CT head/brain wo con Stat 10/04/24 16:11 US abdomen limited Routine Hospital Course (1) Chest pressure: (2) Anxiety: Plan 38-year-old female with PMH of anxiety, recently taking Zepbound for weight loss which she has stopped about a month and a half ago presents to the ED 09/29 with complaints of worsening chest pressure and shortness of breath over the past month. Patient reported about 4 weeks ago developing midsternal chest pressure which has been constant and has been worsening with activity since then. She had a Zio patch on for few days that was discontinued 09/29/2024. Patient denies any fever/chills/sore throat/cough/nausea/vomiting/diarrhea/belly pain. She is being managed for the following: Chest pressure Palpitations Likely symptomatic PVCs Patient presents with chest pressure, worse with activity. Troponin x 2 negative, EKG with sinus tachycardia. Follow-up echo, beta-kristine initiated to suppress symptomatic PVCs. Appreciate cardiology input and recommendation Her symptoms have been reduced and she has been ambulating without any difficulties Her heart rate is controlled with current medications and she will be discharged home this afternoon Headache Possible sleep apnea Morbid obesity Patient reports headache of about 1 and half months duration, constant, in the frontal/forehead area. No sinus tenderness on exam. She reports waking up feeling tired and with more headache even though when she feels she had good night sleep CT head with no acute finding. Will get nocturnal pulse ox, she was advised to follow-up with formal sleep stud y upon discharge. Nocturnal pulse oximetry has been negative Her headache has improved a lot and without any neurological symptoms and no worsening of her symptoms MRI will be canceled Discussed that with her in detail and she was agreeable Right breast mass: CT angio chest revealed 13 x 17 mm and 5 x 10 mm density in the right breast. Patient and her boyfriend was made aware of this finding at bedside 10/04. Recommended that they follow-up with mammogram as an outpatient in coordination with their PCP office. She will need to have mammogram as an outpatient as soon as possible Anxiety/mood disorder, stable off maintenance medications DVT prophylaxis. SCDs Full code Total Time Total Time Spent Total Time Spent (In Minutes): 35 Minutes Discharge Plan Discharge Items Patient Disposition: Home - Self-Care Reason For Visit: CP Discharge Diagnosis: Palpitations,Right Breast mass Condition on Discharge: Good Activity: Resume your previous activity Non-emergency contact: Primary Care Provider Call non-emergency contact if: you have any medication questions and your symptoms worsen Follow-up/Referrals: Charbel Partida, [Physician] - (may call to schedule follow up in the office within a few weeks if you would like to discuss options regarding your gallstones) Mukul Wilkes PA-C [Primary Care Provider] - 10/10/24 1:40 pm (With Dr. Garcia) Diet: Heart Healthy Addtl Attending Provider Instructions: Please take precautions to avoid falls Take your medications as advised Please have a mammogram done as soon as possible through your PCPs office Please keep follow-up appointments with your healthcare provider Pending Studies at Discharge: No Stand-Alone Forms: [employer], Work/School Release, Smoking Cessation Medications and DC Order Prescriptions: New atenolol 25 mg Tablet 25 mg PO QAM Qty: 30 0RF Continued ascorbic acid (vitamin C) [Vitamin C] 1,000 mg Tablet 1,000 mg PO QAM elderberry fruit 350 mg Capsule 350 mg PO QAM Discharge Orders: Discharge Order (Routine); Ordered 10/05/24 Ordered By: Gerard Resendez/Other Patient Handouts: Atenolol Oral Tablet Admission Data Admit Date/Time: 10/03/24 21:09 Attending Provider: Gerard Gresham Admit Provider: Zackary Mackey Primary Care Provider: Mukul Wilkes Other Providers: Zackary Mackey; Charbel Partida; Zoë Silva Other Interventions: Discharge Summary Assessment (RN) Last Done: 10/05/24 13:55
--- OUTSIDE RECORDS SUMMARY | 2024-10-05 23:33 | External Medical Summary | Summary of Care ---
Author Name Unknown Organization [facility] Address [address] [place] [address] Phone [phone] Care Team Providers Care Pocket Setter Lockstitch Name Role Phone Krystle Garcia DO Primary Care Provider [phone] Reason for Visit * Reason Onset Date Comments Appointment 10/04/2024 Left vm for jessica ent to call [phone] to advise which office is most convenient for her to schedule her overdue provider appointment. Encounter Details Date Type Department Care Team (Late st Contact Info) Description 10/04/2024 Telephone Nutrition & Weight Management, [facility] Katie Wyman [address] [place] [address] [place] [phone] Leslie Tineo PA-C [address] [place] [address] [place] [id number] Appointment (Left vm for patient to call 5... Allergies Active Allergy Reactions Criticality Noted Date Comments Meloxicam Edema face/lips/tongue High 10/20/2013 Hydrocodone-Acetaminophen Rash 10/20/2013 documented as of this encounter (statuses as of 10/04/2024) Medications Vitamin C 250 MG Vaginal Tablet [...] as of this encounter (statuses as of 10/04/2024) Active Problems No known active problems documented as of this encounter (statuses as of 10/04/2024) Resolved Problems Problem Noted Date Diagnosed Date [...] as of this encounter (statuses as of 10/04/2024) Immunizations Name Administration Dates Next Due Seasonal [...] No 06/21/2024 Does the household have a rustlar source of income? (Household - for ages [...] Care Team (Late st Contact Info) Description 10/11/2024 1:30 PM EDT Cardiac Studies Cardiac Studies [address] [place] [address] 06/23/2025 4:40 PM EST Office Visit Family [facility] [place] [address] [place] [id number] Madi Pugh PA-C [address] [place] [phone] Health Maintenance Due Date Last Done Comments HIV Screening 12/23/1999 Hepatitis C Screening 2002 Hepatitis B Vaccine (1 of 3 - 19+ 3-dose series) 12/23/2003 COVID-19 Vaccine ( season) 2024 Depression Screening 06/21/2025 06/21/2024 Diabetes Screening 09/30/2027 09/29/2024, 0 09/29/2024, 06/21/2024, Additional history exists DTap/Tdap Vaccines (2 - [...] filedocumented as of this encounter Care Teams Pocket Setter Lockstitch Relationship Specialty Start Date End Date Krystle Garcia DO [address] [place] [id number] PCP - General Family Medicine 05/08/20 documented as of this encounter
== END 2024-10-05 14:40 | disposition home or self-care (01) ==
LOC: 4W 16:57 → ED 16:57 → SUATTDRO 21:09 → 4W 22:53